=== PATIENT | male | born 1935 | race Caucasian/White ===

== ENCOUNTER 2018-10-26 09:48 | Inpatient (IN) | payer MEDICARE, MEDICAID ==
[2018-10-26 09:55] VITALS: BMI 26.1
[2018-10-26] MEDS ORDERED: Sodium Chloride 0.9% 1,000 ML IV STA ×4 (10:19→15:04)
--- NOTE | 2018-10-26 10:23 | ED PDOC ---
HPI: CCC, URI, Sore Throat Time Seen by Provider: 10/26/18 09:57 Chief Complaint (Nursing): Flu-like Symptoms History Per: Family Onset/Duration Of Symptoms: Days (2) Current Symptoms Are (Timing): Still Present Associated Symptoms: Fever, Cough, Vomiting. denies: Sputum, Diarrhea Severity: Moderate Additional Complaint(s): Brought by EMS. called neighbor after pt had vomited this AM. Has fallen x 2 over past 2-3 days. Neighbor states pt had LOC but not witnessed. Pt has also been coughing, nonproductive over past 2-3 days. Denies chest pain or SOB. Denies diarrhea or bloody stool. Past Medical History Vital Signs: Last Vital Signs Temp 101 F H 10/26/18 09:53 Pulse 97 H 10/26/18 09:53 Resp BP 139/65 10/26/18 09:53 Pulse Ox 96 10/26/18 09:53 Primary Care Provider: Kash Gudino - Medical History PMH: Diabetes - Family History Family History: States: Unknown Family Hx - Home Medications Home Medications: Ambulatory Orders Medication Instructions Recorded Aspirin [Ecotrin] 81 mg PO DAILY 10/26/18 Dutasteride [Avodart] 0.5 mg PO DAILY 10/26/18 Gabapentin [Neurontin] 300 mg PO HS 10/26/18 Losartan [Cozaar] 100 mg PO DAILY 10/26/18 Multivitamin [Multi-Vitamin Daily] 1 tab PO DAILY 10/26/18 Omeprazole 20 mg PO DAILY 10/26/18 Rosuvastatin Calcium [Crestor] 20 mg PO DAILY 10/26/18 Sucralfate [Carafate Tab] 1 gm PO BID 10/26/18 - Allergies Allergies/Adverse Reactions: Allergies Allergy/AdvReac Type Severity Reaction Status Date / Time No Known Allergies Allergy Verified 10/26/18 10:07 Review of Systems ROS Statement: Except As Marked, All Systems Reviewed And Found Negative Constitutional: Positive for: Fever Respiratory: Positive for: Cough Gastrointestinal: Positive for: Vomiting Physical Exam - Reviewed Nursing Documentation Reviewed: Yes Vital Signs Reviewed: Yes - Physical Exam Appears: Positive for: Non-toxic, No Acute Distress Head Exam: Positive for: ATRAUMATIC, NORMAL INSPECTION, NORMOCEPHALIC Skin: Positive for: Normal Color, Warm, DRY Eye Exam: Positive for: EOMI, Normal appearance, PERRL ENT: Positive for: Normal ENT Inspection Neck: Positive for: Normal, Painless ROM Cardiovascular/Chest: Positive for: Regular Rate, Rhythm Respiratory: Positive for: Rhonchi. Negative for: Wheezing, Respiratory Distress Gastrointestinal/Abdominal: Positive for: Soft, Distended. Negative for: Tenderness Back: Positive for: Normal Inspection Extremity: Positive for: Normal ROM Neurological/Psych: Positive for: Awake, Alert, Normal Tone, Oriented (x2). Negative for: Motor/Sensory Deficits - Laboratory Results Result Diagrams: 10/26/18 10:40 10/26/18 10:40 - ECG O2 Sat by Pulse Oximetry: 96 - Progress Re-evaluation Time: 12:49 Condition: Re-examined, Unchanged - Critical Care Total Time (In Min): 60 Documented Critical Care: Time excludes all time spent performint seperately billable procedures Medical Decision Making Medical Decision Making: Meets criteria for severe sepsis but Lactate only 3.9 and pt is normotensive. Code Sepsis is cancelled. Will aggressively hydrate and administer IV antibiotics and repeat Lactate after 3 hours. Likely source is intrabadominal possibly gallbladder or ascending cholangitis with elevated LFTs and elevated Bili. CT and US suggestive of acute cholcystits. Will consult surgery and admit to [facility]. Vanco Zosyn and IV fluids administered. Disposition - Clinical Impression Clinical Impression: Severe sepsis, Cholecystitis, Uncontrolled diabetes mellitus - Patient ED Disposition Is Patient to be Admitted: Yes - Disposition Disposition Time: 10:25 Condition: FAIR Forms: [employer] [facility]) - Pt Status Changed To: Hospital Disposition Of: Inpatient - Admit Certification Admit to Inpatient:: After my assessment, the patient will require hospitalization for at least two midnights. This is because of the severity of symptoms shown, intensity of services needed, and/or the medical risk in this patient being treated as an outpatient. - POA Present On Arrival: None
[2018-10-26] MEDS ORDERED: Insulin Regular 100 units/ml SC STA (10:25)
[2018-10-26 10:49] LABS: BASO # 0.1 K/uL (0.0-0.2); BASO % 0.6 % (0.0-2.0); HEMOGLOBIN 14.4 g/dL (12.0-18.0); LYMPH # 0.2 K/uL (1.0-4.3); LYMPH % 1.7 % (20.0-40.0); MEAN CELL VOLUME 88.2 fl (80.0-94.0); MEAN CORPUSCULAR HEMOGLOBIN 30.4 pg (27.0-31.0); MEAN CORPUSCULAR HGB CONC 34.5 g/dL (33.0-37.0); MEAN PLATELET VOLUME 10.1 fl (7.2-11.7); MONO # 0.1 K/uL (0.0-0.8); MONO % 0.7 % (0.0-10.0); NEUT # 10.8 K/uL (1.8-7.0); PLATELET COUNT 143 K/uL (130-400); RBC 4.74 Mil/uL (4.40-5.90); WHITE BLOOD COUNT 11.1 K/uL (4.8-10.8)
[2018-10-26 10:55] LABS: VENOUS BLOOD GAS BASE EXCESS -2.5 mmol/L (0.0-2.0); VENOUS BLOOD GAS PCO2 30 mmHg (40-60); VENOUS BLOOD GAS PO2 29 mm/Hg (30-55); VENOUS BLOOD PH 7.44 (7.32-7.43)
[2018-10-26 11:10] LABS: URINE BACTERIA RARE (<OCC); URINE BILIRUBIN NEGATIVE (NEGATIVE); URINE BLOOD SMALL (NEGATIVE); URINE CLARITY SLIGHTY-CLOUDY (Clear); URINE COLOR YELLOW (YELLOW); URINE GLUCOSE (UA) >=500 mg/dL (NEGATIVE); URINE LEUKOCYTE ESTERASE NEG Leu/uL (Negative); URINE PROTEIN 30 mg/dL (NEGATIVE)
[2018-10-26 11:13] LABS: ANISOCYTOSIS SLIGHT; BANDS 12 % (0-2); BURR CELLS SLIGHT; LYMPHOCYTE 2 % (20-50); NEUTROPHIL 86 % (42-75); PLATELET ESTIMATE NORMAL (NORMAL); POIKILOCYTOSIS SLIGHT; TOTAL CELLS COUNTED 100
[2018-10-26 11:14] LABS: LARGE PLATELETS PRESENT; OVALOCYTES SLIGHT
[2018-10-26 11:18] LABS: ALB/GLOB RATIO 1.3 (1.0-2.1); ALBUMIN 3.8 g/dL (3.5-5.0); ALT/SGPT 211 U/L (21-72); AST/SGOT 339 U/L (17-59); BLOOD UREA NITROGEN 32 mg/dl (9-20); CALCIUM 8.7 mg/dL (8.4-10.2); GFR NON-AFRICAN AMERICAN 36
[2018-10-26] MEDS ORDERED: Vancomycin 1 g Inj ONE (11:28)
--- NOTE | 2018-10-26 12:02 | CT ---
Date of service: 10/26/2018 PROCEDURE: CT HEAD WITHOUT CONTRAST. HISTORY: r/o bleed COMPARISON: None available. TECHNIQUE: Axial computed tomography images were obtained through the head/brain without intravenous contrast. Radiation dose: Total exam DLP = 1036.42 mGy-cm. This CT exam was performed using one or more of the following dose reduction techniques: Automated exposure control, adjustment of the mA and/or kV according to patient size, and/or use of iterative reconstruction technique. FINDINGS: HEMORRHAGE: No intracranial hemorrhage. BRAIN: Age-appropriate diffuse cerebral atrophy chronic microangiopathy are identified, which are age-related degenerative findings of mild severity. No mass-effect is identified and there is no suspicious extra-axial collection appreciated the posterior fossa contents are unremarkable as well as the midline brain anatomy. Note is made of atherosclerotic calcification of the bilateral cavernous internal carotid artery segments. VENTRICLES: Unremarkable. No hydrocephalus. CALVARIUM: Unremarkable. PARANASAL SINUSES: Unremarkable as visualized. No significant inflammatory changes. MASTOID AIR CELLS: Unremarkable as visualized. No inflammatory changes. OTHER FINDINGS: None. IMPRESSION: Age-appropriate neuro degenerative changes are identified without definite acute intracranial findings by standard CT criteria.
--- NOTE | 2018-10-26 12:31 | CT ---
Date of service: 10/26/2018 PROCEDURE: CT Abdomen and Pelvis without intravenous contrast HISTORY: Abd pain vomiting COMPARISON: Abdomen pelvis CT with contrast 05/30/2009. TECHNIQUE: Helical CT of the abdomen and pelvis was performed without oral or intravenous contrast as per referring physician request. Coronal and sagittal reformats were generated. Radiation dose: Total exam DLP = 621.52 mGy-cm. This CT exam was performed using one or more of the following dose reduction techniques: Automated exposure control, adjustment of the mA and/or kV according to patient size, and/or use of iterative reconstruction technique. FINDINGS: LOWER THORAX: Small hiatal hernia identified. Basilar dependent atelectasis noted. Mild cardiomegaly noted. LIVER: Unremarkable. No gross lesion or ductal dilatation. GALLBLADDER AND BILE DUCTS: Gallbladder is significantly distended without radiodense cholelithiasis however mild mural thickening is questioned and there is definite pericholecystic reaction. Clinically correlate for potential cholecystitis. PANCREAS: Unremarkable. No gross lesion or ductal dilatation. SPLEEN: Unremarkable. ADRENALS: Unremarkable. No mass. KIDNEYS AND URETERS: Lower pole right renal cyst is not significantly changed in size now measuring 4.1 cm greatest dimension compared to 4.0 cm previously. Punctate calcification is seen in its medial wall. Nonspecific streaky bilateral perinephric changes are reiterated, of uncertain significance. VASCULATURE: Minimal nonaneurysmal abdominal aortic calcific atherosclerotic changes are identified. BOWEL: The stomach is distended with retained fluid moderately. No bowel obstruction apparent. Occasional left colonic diverticular appreciate without definite diverticulitis. APPENDIX: Unremarkable. Normal appendix. PERITONEUM: Tiny umbilical hernia contains only fat. No free fluid. No free air. LYMPH NODES: Unremarkable. No enlarged lymph nodes. BLADDER: Stable appearance to the urinary bladder. REPRODUCTIVE: Prostate gland enlargement again evident. BONES: No acute fracture. OTHER FINDINGS: None. IMPRESSION: 1. A distended gallbladder is identified with mild mural thickening and pericholecystic reaction suspicious for cholecystitis. No radiodense cholelithiasis appreciated. Consider follow-up right upper quadrant abdomen ultrasound and or nuclear pattern biliary scan for added characterization of the gallbladder and biliary tree. 2. Nonacute left colonic diverticulosis. 3. Stable right renal cyst, minimally complicated. 4. Other, lesser nonacute findings as discussed above.
--- NOTE | 2018-10-26 12:33 | US ---
Date of service: 10/26/2018 HISTORY: Elevated LFTs COMPARISON: 04/25/2009. Right upper quadrant ultrasound October 26, 2018. CT abdomen and pelvis TECHNIQUE: Sonographic evaluation of the right upper quadrant of the abdomen. FINDINGS: LIVER: Measures 15.2 cm in length. Patent portal and hepatic venous systems. Hepatopedal blood flow. Fatty infiltration manifest ultrasonographically as increased echogenicity of the liver parenchyma. No mass. No intrahepatic bile duct dilatation. GALLBLADDER: Thickened gallbladder wall varies from 7.2 mm 212.2 mm. Debris/tumefactive sludge identified. These are new findings compared to the prior ultrasound study. COMMON BILE DUCT: Measures 2.7 mm. No stones. No dilatation. PANCREAS: Unremarkable as visualized. No mass. No ductal dilatation. RIGHT KIDNEY: Measures 5.1 x 9.8 cm in length. Normal echogenicity. No calculus, mass, or hydronephrosis.Incidental finding(s): Exophytic cyst projects off the posterior lateral aspect of the right kidney measures 3.5 x 3.6 cm. AORTA: No aneurysmal dilatation. IVC: Unremarkable. OTHER FINDINGS: None . IMPRESSION: 1. Distended gallbladder, thickening gallbladder wall. 2. No discrete gallstones identified. 3. No sonographic Smith sign identified. 4. Tumefactive sludge identified. Follow-up of the findings in the gallbladder recommended.
--- NOTE | 2018-10-26 12:44 | RAD ---
Date of service: 10/26/2018 PROCEDURE: CHEST RADIOGRAPH, 1 VIEW HISTORY: Fever COMPARISON: 07/13/2012. FINDINGS: LUNGS: Clear. PLEURA: No pneumothorax or pleural fluid seen. CARDIOVASCULAR: No aortic atherosclerotic calcification present. Normal. OSSEOUS STRUCTURES: No significant abnormalities. VISUALIZED UPPER ABDOMEN: Normal. OTHER FINDINGS: None. IMPRESSION: No active disease. No acute/significant interval changes.
--- NOTE | 2018-10-26 12:48 | CARD ---
APPROVED REPORT Date of service: 10/26/2018 EKG Measurement Heart [id number] <Conclusion> Normal sinus rhythm Possible Left atrial enlargement Borderline ECG
[2018-10-26 13:11] LABS: LIPASE 655 U/L (23-300)
[2018-10-26 14:45] LABS: VENOUS BLOOD GAS BASE EXCESS -2.9 mmol/L (0.0-2.0); VENOUS BLOOD GAS PCO2 38 mmHg (40-60); VENOUS BLOOD GAS PO2 26 mm/Hg (30-55); VENOUS BLOOD PH 7.37 (7.32-7.43)
--- NOTE | 2018-10-26 14:50 | CP.PCM.CON ---
<Indra Sarmiento - Last Filed: 10/26/18 14:51> History of Present Illness - History of Present Illness History of Present Illness: Surgery Consult Note. Dr. Marquez 83yo M with PMHx of HTN, DM here for evaluation of abdominal pain. Pain started 4 days ago and associated with nausea and vomiting x 1 episode this morning. Pain described as sharp and located in the RUQ, does not radiate. He also c/o subjective fevers and chills. He states nothing improves the pain. Also c/o recent fall but unwitnessed. Denies urinary complaints. No CP/SOB. Abd CT with evidence of a distended GB and sludge. Abd US with evidence of GB wall thickening. General surgery consult was obtained. PMHx: HTN, DM PSHx: Deneis Social Hx: Denies Tobacco use, denies ETOH use, Denies illicit drugs Family Hx: non-contributory NKDA Review of Systems - Review of Systems All systems: reviewed and no additional remarkable complaints except - Constitutional Constitutional: Chills, Fever - EENT Eyes: absent: Blurred Vision - Cardiovascular Cardiovascular: absent: Chest Pain, Dyspnea - Respiratory Respiratory: absent: Cough - Gastrointestinal Gastrointestinal: Abdominal Pain, Belching, Nausea, Vomiting - Genitourinary Genitourinary: absent: Change in Urinary Stream, Difficulty Urinating - Musculoskeletal Musculoskeletal: absent: Back Pain Past Patient History - Infectious Disease Hx of Infectious Diseases: None - Past Medical History & Family History Past Medical History?: Yes Past Family History: Reviewed and not pertinent - Past Social History Smoking Status: Never Smoked Alcohol: None Drugs: Denies - CARDIAC Hx Hypertension: Yes - ENDOCRINE/METABOLIC Hx Diabetes Mellitus Type 2: Yes - PSYCHIATRIC Hx Substance Use: No - SURGICAL HISTORY Hx Surgeries: No - ANESTHESIA Hx Anesthesia: No Meds Allergies/Adverse Reactions: Allergies Allergy/AdvReac Type Severity Reaction Status Date / Time No Known Allergies Allergy Verified 10/26/18 10:07 - Medications Medications: Current Medications Sodium Chloride (Sodium Chloride 0.9%) 1,000 mls @ 125 mls/hr IV .Q8H STA Stop: 10/26/18 18:18 Last Admin: 10/26/18 10:47 Dose: 125 mls/hr Physical Exam - Constitutional Appears: Toxic - Head Exam Head Exam: ATRAUMATIC, NORMAL INSPECTION, NORMOCEPHALIC - Eye Exam Eye Exam: EOMI, Normal appearance, Scleral icterus - ENT Exam ENT Exam: Mucous Membranes Dry - Respiratory Exam Respiratory Exam: NORMAL BREATHING PATTERN. absent: Accessory Muscle Use, Respiratory Distress - Cardiovascular Exam Cardiovascular Exam: RRR. absent: JVD - GI/Abdominal Exam GI & Abdominal Exam: absent: Distended, Guarding, Rebound, Rigid Additional comments: Negative Smith's sign. No rebound, no guarding. RUQ tenderness to palpation. - Extremities Exam Extremities exam: Positive for: normal inspection. Negative for: calf tenderness - Neurological Exam Neurological exam: Alert, Oriented x3 - Psychiatric Exam Psychiatric exam: Normal Affect, Normal Mood - Skin Skin Exam: Dry, Warm Results - Vital Signs Recent Vital Signs: Last Vital Signs Temp 100.5 F H 10/26/18 12:38 Pulse 86 10/26/18 14:14 Resp 16 10/26/18 14:14 BP 96/67 L 10/26/18 14:14 Pulse Ox 99 10/26/18 14:14 - Labs Result Diagrams: 10/26/18 10:40 10/26/18 10:40 Labs: Laboratory Results - last 24 hr 10/26/18 10/26/18 10/26/18 10:11 10:28 10:40 WBC 11.1 H RBC 4.74 Hgb 14.4 Hct 41.8 MCV 88.2 MCH 30.4 MCHC 34.5 RDW 14.0 Plt Count 143 MPV 10.1 Neut % (Auto) 97.0 H Lymph % (Auto) 1.7 L [place] % (Auto) 0.7 Eos % (Auto) 0.0 Baso % (Auto) 0.6 Neut # (Auto) 10.8 H Lymph # (Auto) 0.2 L [place] # (Auto) 0.1 Eos # (Auto) 0.0 Baso # (Auto) 0.1 Neutrophils % (Manual) 86 H Band Neutrophils % 12 H* Lymphocytes % (Manual) 2 L Monocytes % (Manual) TEST NOT PERFORMED Platelet Estimate Normal Large Platelets Present Poikilocytosis (manual Slight Anisocytosis (manual) Slight Ovalocytes Slight [place] Cells Slight pO2 29 L VBG pH 7.44 H VBG pCO2 30 L VBG HCO3 21.8 VBG Total CO2 21.3 L VBG O2 Sat (Calc) 63.5 VBG Base Excess -2.5 L VBG Potassium 4.8 Sodium 130.0 L Chloride 96.0 L Glucose 443 H* Lactate 3.9 H FiO2 21.0 Crit Value Called To Azeb richey r.n. Crit Value Called By Camelia Christensent Value Read Back Y Blood Gas Notified Time 1055 Potassium Carbon Dioxide Anion Gap BUN Creatinine Est GFR ( Amer) Est GFR (Non-Af Amer) POC Glucose (mg/dL) 403 H* Random Glucose Calcium Total Bilirubin AST ALT Alkaline Phosphatase Troponin I Total Protein Albumin Globulin Albumin/Globulin Ratio Lipase Venous Blood Potassium 4.8 Urine Color Urine Clarity Urine pH Ur Specific [place] Urine Protein Urine Glucose (UA) Urine Ketones Urine Blood Urine Nitrate Urine Bilirubin Urine Urobilinogen Ur Leukocyte Esterase Urine RBC (Auto) Urine Microscopic WBC Urine Bacteria Influenza Typ A,B (EIA) 10/26/18 10/26/18 10/26/18 10:40 10:45 10:55 WBC RBC Hgb Hct MCV MCH MCHC RDW Plt Count MPV Neut % (Auto) Lymph % (Auto) [place] % (Auto) Eos % (Auto) Baso % (Auto) Neut # (Auto) Lymph # (Auto) [place] # (Auto) Eos # (Auto) Baso # (Auto) Neutrophils % (Manual) Band Neutrophils % Lymphocytes % (Manual) Monocytes % (Manual) Platelet Estimate Large Platelets Poikilocytosis (manual Anisocytosis (manual) Ovalocytes [place] Cells pO2 VBG pH VBG pCO2 VBG HCO3 VBG Total CO2 VBG O2 Sat (Calc) VBG Base Excess VBG Potassium Sodium 132 Chloride 96 L Glucose Lactate FiO2 Crit Value Called To Crit Value Called By Crit Value Read Back Blood Gas Notified Time Potassium 4.7 Carbon Dioxide 22 Anion Gap 19 BUN 32 H Creatinine 1.8 H Est GFR ( Amer) 44 Est GFR (Non-Af Amer) 36 POC Glucose (mg/dL) Random Glucose 411 H* D Calcium 8.7 Total Bilirubin 7.2 H AST 339 H ALT 211 H D Alkaline Phosphatase 226 H Troponin I < 0.0120 Total Protein 6.7 Albumin 3.8 Globulin 2.9 Albumin/Globulin Ratio 1.3 Lipase 655 H Venous Blood Potassium Urine Color Yellow Urine Clarity Slighty-cloudy Urine pH 6.0 Ur Specific [place] 1.017 Urine Protein 30 Urine Glucose (UA) >=500 Urine Ketones Trace Urine Blood Small Urine Nitrate Negative Urine Bilirubin Negative Urine Urobilinogen 1.0 Ur Leukocyte Esterase Neg Urine RBC (Auto) 3 Urine Microscopic WBC 1 Urine Bacteria Rare Influenza Typ A,B (EIA) Negative for flu a/b Assessment & Plan - Assessment and Plan (Free Text) Assessment: 83yo M with cholecystitis, possible cholangitis. - TBili 7.2 - Lactate 3.9 - CT A/P and Abd US noted - Leukocytosis and febrile Plan: - Agree with ICU admission - f/u HIDA as ordered - IV Abx - Consult IR for possible Cholecystostomy tube - NPO - IVF - antiemetics as needed - pain management Further recs as per Dr. Herrera PGY2 surgery <Ruben Campbell - Last Filed: 10/31/18 12:27> Meds - Medications Medications: Current Medications Acetaminophen (Tylenol 325mg Tab) 650 mg PO Q6H PRN PRN Reason: Pain, moderate (4-7) Acetaminophen (Tylenol 325mg Tab) 650 mg PO Q6H PRN PRN Reason: Fever >100.4 F Albuterol Sulfate (Albuterol 0.083% Inhal Mary (2.5 Mg/3 Ml) Ud) 2.5 mg IH RQ2 PRN PRN Reason: Shortness of Breath Dextrose (Dextrose 50% Inj) 0 ml IV STAT PRN; Protocol PRN Reason: Hypoglycemia Protocol Dextrose (Glutose 15) 0 gm PO ONCE PRN; Protocol PRN Reason: Hypoglycemia Protocol Gabapentin (Neurontin) 300 mg PO HS [facility] Last Admin: 10/30/18 21:50 Dose: 300 mg Glucagon (Glucagen Diagnostic Kit) 0 mg IM STAT PRN; Protocol PRN Reason: Hypoglycemia Protocol Guaifenesin/Dextromethorphan (Robitussin Dm) 10 ml PO TID PRN PRN Reason: Cough Stop: 11/02/18 22:47 Last Admin: 10/29/18 13:01 Dose: 10 ml Heparin Sodium (Porcine) (Heparin) 5,000 units SC Q12 [facility]; Protocol Last Admin: 10/26/18 21:11 Dose: Not Given Piperacillin Sod/Tazobactam (Sod 2.25 gm/ Sodium Chloride) 100 mls @ 100 mls/hr IVPB Q6 [facility]OVA; Protocol Last Admin: 10/31/18 09:00 Dose: 100 mls/hr Lactated Ringer's (Lactated Ringer's) 1,000 mls @ 100 mls/hr IV .Q10H [facility] Last Admin: 10/29/18 08:10 Dose: 100 mls/hr Norepinephrine Bitartrate 16 (mg/ Dextrose) 266 mls @ 2.49 mls/hr IV .Q24H ONE Stop: 10/31/18 21:55 Last Admin: 10/31/18 00:38 Dose: 2.49 mls/hr Insulin Human Lispro (Humalog) 0 units SC Q6H [facility]; Protocol Morphine Sulfate (Morphine) 2 mg IVP Q4H PRN PRN Reason: Pain, severe (8-10) Last Admin: 10/31/18 01:00 Dose: 2 mg Ondansetron HCl (Zofran Inj) 4 mg IVP Q6H PRN PRN Reason: Nausea/Vomiting Pantoprazole Sodium (Protonix Inj) 40 mg IVP DAILY [facility] Last Admin: 10/31/18 10:27 Dose: 40 mg Sennosides (Senokot Tab) 8.6 mg PO HS PRN PRN Reason: Constipation Tamsulosin HCl (Flomax) 0.4 mg PO DAILY [facility] Last Admin: 10/31/18 10:27 Dose: 0.4 mg Results - Vital Signs Recent Vital Signs: Last Vital Signs Temp 98.2 F 10/31/18 08:00 Pulse 101 H 10/31/18 11:00 Resp 22 10/31/18 11:00 BP 100/66 10/31/18 11:00 Pulse Ox 100 10/31/18 11:00 - Labs Result Diagrams: 10/31/18 05:31 10/31/18 05:31 Labs: Laboratory Results - last 24 hr 10/30/18 10/30/18 10/31/18 08:29 16:18 00:42 WBC RBC Hgb Hct MCV MCH MCHC RDW Plt Count Sodium Potassium Chloride Carbon Dioxide Anion Gap BUN Creatinine Est GFR ( Amer) Est GFR (Non-Af Amer) POC Glucose (mg/dL) 292 H 403 H* 226 H Random Glucose Calcium Phosphorus Magnesium Total Bilirubin AST ALT Alkaline Phosphatase Total Protein Albumin Globulin Albumin/Globulin Ratio 10/31/18 10/31/18 10/31/18 05:31 05:31 06:17 WBC 15.9 H RBC 4.32 L Hgb 12.7 Hct 38.2 MCV 88.4 MCH 29.3 MCHC 33.2 RDW 14.9 H Plt Count 128 L D Sodium 135 Potassium 3.7 Chloride 102 Carbon Dioxide 24 Anion Gap 13 BUN 34 H Creatinine 1.5 Est GFR ( Amer) 54 Est GFR (Non-Af Amer) 45 POC Glucose (mg/dL) 312 H Random Glucose 246 H Calcium 7.5 L Phosphorus 2.4 L Magnesium 1.9 Total Bilirubin 5.4 H AST 37 ALT 34 Alkaline Phosphatase 208 H D Total Protein 5.0 L Albumin 2.3 L Globulin 2.6 Albumin/Globulin Ratio 0.9 L Assessment & Plan - Assessment and Plan (Free Text) Plan: All medical record entries made by the resident were at my direction. I have reviewed the chart and agree that the record accurately reflects my personal performance of the history, physical exam, and medical decision making.
--- NOTE | 2018-10-26 18:23 | CP.CCUPN ---
CCU Subjective - Physician Review Subjective (Free Text): 10/26/18 18:40 The patient was Seen/interviewed and examined by me at the bedside during ICU round, Medical records reviewed and Management issues were discussed and formulated with the house staff. Events reviewed Mr Angel is a 83 years old male with past medical history of hypertension and diabetes who was transferred to the emergency room with complaint of abdominal pain, also the patient neighbor state that the patient had an episode of u nwitnessed loss of consciousness Abdominal CAT scan shows distended gallbladder with evidence of acute cholecystitis Labs noted for elevated lactate and code sepsis was called Blood culture was sent and empiric antibiotic with IV vancomycin and Zosyn he started Also aggressive IV hydration Patient was also evaluated by surgery in the emergency room, he is to be n.p.o. for OR in the morning Left femoral central line was placed for borderline blood pressure Patient admitted to the ICU for further management of severe sepsis Patient awake comfortable, in no apparent distress Mildly tachypneic, borderline blood pressure, afebrile Adequate saturation of 98-99% CCU Objective - Vital Signs / Intake & Output Vital Signs (Last 4 hours): Vital Signs Temp Pulse Resp BP Pulse Ox 10/26/18 18:00 82 32 H 92/62 L 98 10/26/18 17:00 83 25 H 101/60 98 10/26/18 16:43 98.3 F 88 33 H 118/58 L 99 10/26/18 16:15 88 18 129/74 100 10/26/18 15:45 88 18 129/74 99 10/26/18 15:44 92 H 16 89/67 L 100 10/26/18 15:42 99 H 15 89/67 L 100 10/26/18 14:35 88 100/60 99 Intake and Output (Last 8hrs): Intake & Output 10/26/18 10/26/18 10/26/18 06:59 14:59 22:59 Intake Total 125 Output Total 400 Balance -275 Weight 152 lb 160 lb Intake: IV 125 Output: Urine 400 Urine, Voided 400 - Medications Active Medications: Active Medications Generic Name Dose Route Start Last Admin Trade Name Freq PRN Reason Stop Dose Admin Norepinephrine Bitartrate 4 mg 254 mls @ 9.53 mls/hr 10/26/18 15:30 10/26/18 15:44 / Dextrose IV 9.53 mls/hr .Q24H [facility] Administration Protocol 2.5 MCG/MIN Piperacillin Sod/Tazobactam 100 mls @ 100 mls/hr 10/26/18 22:00 Sod 3.375 gm/ Sodium Chloride IVPB Q6 [facility] Protocol - Patient Studies Lab Studies: Lab Studies 10/26/18 10/26/18 10/26/18 Range/Units 14:04 10:55 10:45 WBC (4.8-10.8) K/uL RBC (4.40-5.90) Mil/uL Hgb (12.0-18.0) g/dL Hct (35.0-51.0) % MCV (80.0-94.0) fl MCH (27.0-31.0) pg MCHC (33.0-37.0) g/dL RDW (11.5-14.5) % Plt Count (130-400) K/uL MPV (7.2-11.7) fl Neut % (Auto) (50.0-75.0) % Lymph % (Auto) (20.0-40.0) % [place] % (Auto) (0.0-10.0) % Eos % (Auto) (0.0-4.0) % Baso % (Auto) (0.0-2.0) % Neut # (Auto) (1.8-7.0) K/uL Lymph # (Auto) (1.0-4.3) K/uL [place] # (Auto) (0.0-0.8) K/uL Eos # (Auto) (0.0-0.7) K/uL Baso # (Auto) (0.0-0.2) K/uL Neutrophils % (Manual) (42-75) % Band Neutrophils % (0-2) % Lymphocytes % (Manual) (20-50) % Monocytes % (Manual) Platelet Estimate (NORMAL) Large Platelets Poikilocytosis (manual Anisocytosis (manual) Ovalocytes [place] Cells pO2 26 L (30-55) mm/Hg VBG pH 7.37 (7.32-7.43) VBG pCO2 38 L (40-60) mmHg VBG HCO3 21.5 mmol/L VBG Total CO2 23.2 (22-28) mmol/L VBG O2 Sat (Calc) 56.9 (40-65) % VBG Base Excess -2.9 L (0.0-2.0) mmol/L VBG Potassium 4.1 (3.6-5.2) mmol/L Sodium 134.0 (132-148) mmol/L Chloride 102.0 (98-107) mmol/L Glucose 345 H (75-110) mg/dL Lactate 3.9 H (0.7-2.1) mmol/L FiO2 21.0 % Crit Value Called To Crit Value Called By Crit Value Read Back Blood Gas Notified Time Potassium (3.6-5.0) MMOL/L Carbon Dioxide (22-30) mmol/L Anion Gap (10-20) BUN (9-20) mg/dl Creatinine (0.8-1.5) mg/dl Est GFR ( Amer) Est GFR (Non-Af Amer) POC Glucose (mg/dL) (65-110) mg/dL Random Glucose (75-110) mg/dL Calcium (8.4-10.2) mg/dL Total Bilirubin (0.2-1.3) mg/dl AST (17-59) U/L ALT (21-72) U/L Alkaline Phosphatase (38-126) U/L Troponin I (0.00-0.120) ng/mL Total Protein (6.3-8.2) G/DL Albumin (3.5-5.0) g/dL Globulin (2.2-3.9) gm/dL Albumin/Globulin Ratio (1.0-2.1) Lipase (23-300) U/L Venous Blood Potassium 4.1 (3.6-5.2) mmol/L Urine Color Yellow (YELLOW) Urine Clarity Slighty-cloudy (Clear) Urine pH 6.0 (5.0-8.0) Ur Specific [place] 1.017 (1.003-1.030) Urine Protein 30 (NEGATIVE) mg/dL Urine Glucose (UA) >=500 (NEGATIVE) mg/dL Urine Ketones Trace (NEGATIVE) mg/dL Urine Blood Small (NEGATIVE) Urine Nitrate Negative (NEGATIVE) Urine Bilirubin Negative (NEGATIVE) Urine Urobilinogen 1.0 (0.2-1.0) mg/dL Ur Leukocyte Esterase Neg (Negative) Tuan/uL Urine RBC (Auto) 3 (0-3) /hpf Urine Microscopic WBC 1 (0-5) /hpf Urine Bacteria Rare (<OCC) Influenza Typ A,B (EIA) Negative for flu a/b (NEGATIVE) 10/26/18 10/26/18 10/26/18 Range/Units 10:40 10:40 10:28 WBC 11.1 H (4.8-10.8) K/uL RBC 4.74 (4.40-5.90) Mil/uL Hgb 14.4 (12.0-18.0) g/dL Hct 41.8 (35.0-51.0) % MCV 88.2 (80.0-94.0) fl MCH 30.4 (27.0-31.0) pg MCHC 34.5 (33.0-37.0) g/dL RDW 14.0 (11.5-14.5) % Plt Count 143 (130-400) K/uL MPV 10.1 (7.2-11.7) fl Neut % (Auto) 97.0 H (50.0-75.0) % Lymph % (Auto) 1.7 L (20.0-40.0) % [place] % (Auto) 0.7 (0.0-10.0) % Eos % (Auto) 0.0 (0.0-4.0) % Baso % (Auto) 0.6 (0.0-2.0) % Neut # (Auto) 10.8 H (1.8-7.0) K/uL Lymph # (Auto) 0.2 L (1.0-4.3) K/uL [place] # (Auto) 0.1 (0.0-0.8) K/uL Eos # (Auto) 0.0 (0.0-0.7) K/uL Baso # (Auto) 0.1 (0.0-0.2) K/uL Neutrophils % (Manual) 86 H (42-75) % Band Neutrophils % 12 H* (0-2) % Lymphocytes % (Manual) 2 L (20-50) % Monocytes % (Manual) TEST NOT PERFORMED Platelet Estimate Normal (NORMAL) Large Platelets Present Poikilocytosis (manual Slight Anisocytosis (manual) Slight Ovalocytes Slight [place] Cells Slight pO2 29 L (30-55) mm/Hg VBG pH 7.44 H (7.32-7.43) VBG pCO2 30 L (40-60) mmHg VBG HCO3 21.8 mmol/L VBG Total CO2 21.3 L (22-28) mmol/L VBG O2 Sat (Calc) 63.5 (40-65) % VBG Base Excess -2.5 L (0.0-2.0) mmol/L VBG Potassium 4.8 (3.6-5.2) mmol/L Sodium 132 130.0 L (132-148) mmol/L Chloride 96 L 96.0 L (98-107) mmol/L Glucose 443 H* (75-110) mg/dL Lactate 3.9 H (0.7-2.1) mmol/L FiO2 21.0 % Crit Value Called To Azeb richey r.n. Crit Value Called By Camelia Sung Value Read Back Y Blood Gas Notified Time 1055 Potassium 4.7 (3.6-5.0) MMOL/L Carbon Dioxide 22 (22-30) mmol/L Anion Gap 19 (10-20) BUN 32 H (9-20) mg/dl Creatinine 1.8 H (0.8-1.5) mg/dl Est GFR ( Amer) 44 Est GFR (Non-Af Amer) 36 POC Glucose (mg/dL) (65-110) mg/dL Random Glucose 411 H* D (75-110) mg/dL Calcium 8.7 (8.4-10.2) mg/dL Total Bilirubin 7.2 H (0.2-1.3) mg/dl AST 339 H (17-59) U/L ALT 211 H D (21-72) U/L Alkaline Phosphatase 226 H (38-126) U/L Troponin I < 0.0120 (0.00-0.120) ng/mL Total Protein 6.7 (6.3-8.2) G/DL Albumin 3.8 (3.5-5.0) g/dL Globulin 2.9 (2.2-3.9) gm/dL Albumin/Globulin Ratio 1.3 (1.0-2.1) Lipase 655 H (23-300) U/L Venous Blood Potassium 4.8 (3.6-5.2) mmol/L Urine Color (YELLOW) Urine Clarity (Clear) Urine pH (5.0-8.0) Ur Specific [place] (1.003-1.030) Urine Protein (NEGATIVE) mg/dL Urine Glucose (UA) (NEGATIVE) mg/dL Urine Ketones (NEGATIVE) mg/dL Urine Blood (NEGATIVE) Urine Nitrate (NEGATIVE) Urine Bilirubin (NEGATIVE) Urine Urobilinogen (0.2-1.0) mg/dL Ur Leukocyte Esterase (Negative) Tuan/uL Urine RBC (Auto) (0-3) /hpf Urine Microscopic WBC (0-5) /hpf Urine Bacteria (<OCC) Influenza Typ A,B (EIA) (NEGATIVE) 10/26/18 Range/Units 10:11 WBC (4.8-10.8) K/uL RBC (4.40-5.90) Mil/uL Hgb (12.0-18.0) g/dL Hct (35.0-51.0) % MCV (80.0-94.0) fl MCH (27.0-31.0) pg MCHC (33.0-37.0) g/dL RDW (11.5-14.5) % Plt Count (130-400) K/uL MPV (7.2-11.7) fl Neut % (Auto) (50.0-75.0) % Lymph % (Auto) (20.0-40.0) % [place] % (Auto) (0.0-10.0) % Eos % (Auto) (0.0-4.0) % Baso % (Auto) (0.0-2.0) % Neut # (Auto) (1.8-7.0) K/uL Lymph # (Auto) (1.0-4.3) K/uL [place] # (Auto) (0.0-0.8) K/uL Eos # (Auto) (0.0-0.7) K/uL Baso # (Auto) (0.0-0.2) K/uL Neutrophils % (Manual) (42-75) % Band Neutrophils % (0-2) % Lymphocytes % (Manual) (20-50) % Monocytes % (Manual) Platelet Estimate (NORMAL) Large Platelets Poikilocytosis (manual Anisocytosis (manual) Ovalocytes [place] Cells pO2 (30-55) mm/Hg VBG pH (7.32-7.43) VBG pCO2 (40-60) mmHg VBG HCO3 mmol/L VBG Total CO2 (22-28) mmol/L VBG O2 Sat (Calc) (40-65) % VBG Base Excess (0.0-2.0) mmol/L VBG Potassium (3.6-5.2) mmol/L Sodium (132-148) mmol/L Chloride (98-107) mmol/L Glucose (75-110) mg/dL Lactate (0.7-2.1) mmol/L FiO2 % Crit Value Called To Crit Value Called By Crit Value Read Back Blood Gas Notified Time Potassium (3.6-5.0) MMOL/L Carbon Dioxide (22-30) mmol/L Anion Gap (10-20) BUN (9-20) mg/dl Creatinine (0.8-1.5) mg/dl Est GFR ( Amer) Est GFR (Non-Af Amer) POC Glucose (mg/dL) 403 H* (65-110) mg/dL Random Glucose (75-110) mg/dL Calcium (8.4-10.2) mg/dL Total Bilirubin (0.2-1.3) mg/dl AST (17-59) U/L ALT (21-72) U/L Alkaline Phosphatase (38-126) U/L Troponin I (0.00-0.120) ng/mL Total Protein (6.3-8.2) G/DL Albumin (3.5-5.0) g/dL Globulin (2.2-3.9) gm/dL Albumin/Globulin Ratio (1.0-2.1) Lipase (23-300) U/L Venous Blood Potassium (3.6-5.2) mmol/L Urine Color (YELLOW) Urine Clarity (Clear) Urine pH (5.0-8.0) Ur Specific [place] (1.003-1.030) Urine Protein (NEGATIVE) mg/dL Urine Glucose (UA) (NEGATIVE) mg/dL Urine Ketones (NEGATIVE) mg/dL Urine Blood (NEGATIVE) Urine Nitrate (NEGATIVE) Urine Bilirubin (NEGATIVE) Urine Urobilinogen (0.2-1.0) mg/dL Ur Leukocyte Esterase (Negative) Tuan/uL Urine RBC (Auto) (0-3) /hpf Urine Microscopic WBC (0-5) /hpf Urine Bacteria (<OCC) Influenza Typ A,B (EIA) (NEGATIVE) Laboratory Results - last 24 hr 10/26/18 10/26/18 10/26/18 10:11 10:28 10:40 WBC 11.1 H RBC 4.74 Hgb 14.4 Hct 41.8 MCV 88.2 MCH 30.4 MCHC 34.5 RDW 14.0 Plt Count 143 MPV 10.1 Neut % (Auto) 97.0 H Lymph % (Auto) 1.7 L [place] % (Auto) 0.7 Eos % (Auto) 0.0 Baso % (Auto) 0.6 Neut # (Auto) 10.8 H Lymph # (Auto) 0.2 L [place] # (Auto) 0.1 Eos # (Auto) 0.0 Baso # (Auto) 0.1 Neutrophils % (Manual) 86 H Band Neutrophils % 12 H* Lymphocytes % (Manual) 2 L Monocytes % (Manual) TEST NOT PERFORMED Platelet Estimate Normal Large Platelets Present Poikilocytosis (manual Slight Anisocytosis (manual) Slight Ovalocytes Slight [place] Cells Slight pO2 29 L VBG pH 7.44 H VBG pCO2 30 L VBG HCO3 21.8 VBG Total CO2 21.3 L VBG O2 Sat (Calc) 63.5 VBG Base Excess -2.5 L VBG Potassium 4.8 Sodium 130.0 L Chloride 96.0 L Glucose 443 H* Lactate 3.9 H FiO2 21.0 Crit Value Called To Azeb richey r.n. Crit Value Called By Camelia Sung Value Read Back Y Blood Gas Notified Time 1055 Potassium Carbon Dioxide Anion Gap BUN Creatinine Est GFR ( Amer) Est GFR (Non-Af Amer) POC Glucose (mg/dL) 403 H* Random Glucose Calcium Total Bilirubin AST ALT Alkaline Phosphatase Troponin I Total Protein Albumin Globulin Albumin/Globulin Ratio Lipase Venous Blood Potassium 4.8 Urine Color Urine Clarity Urine pH Ur Specific [place] Urine Protein Urine Glucose (UA) Urine Ketones Urine Blood Urine Nitrate Urine Bilirubin Urine Urobilinogen Ur Leukocyte Esterase Urine RBC (Auto) Urine Microscopic WBC Urine Bacteria Influenza Typ A,B (EIA) 10/26/18 10/26/18 10/26/18 10:40 10:45 10:55 WBC RBC Hgb Hct MCV MCH MCHC RDW Plt Count MPV Neut % (Auto) Lymph % (Auto) [place] % (Auto) Eos % (Auto) Baso % (Auto) Neut # (Auto) Lymph # (Auto) [place] # (Auto) Eos # (Auto) Baso # (Auto) Neutrophils % (Manual) Band Neutrophils % Lymphocytes % (Manual) Monocytes % (Manual) Platelet Estimate Large Platelets Poikilocytosis (manual Anisocytosis (manual) Ovalocytes [place] Cells pO2 VBG pH VBG pCO2 VBG HCO3 VBG Total CO2 VBG O2 Sat (Calc) VBG Base Excess VBG Potassium Sodium 132 Chloride 96 L Glucose Lactate FiO2 Crit Value Called To Crit Value Called By Crit Value Read Back Blood Gas Notified Time Potassium 4.7 Carbon Dioxide 22 Anion Gap 19 BUN 32 H Creatinine 1.8 H Est GFR ( Amer) 44 Est GFR (Non-Af Amer) 36 POC Glucose (mg/dL) Random Glucose 411 H* D Calcium 8.7 Total Bilirubin 7.2 H AST 339 H ALT 211 H D Alkaline Phosphatase 226 H Troponin I < 0.0120 Total Protein 6.7 Albumin 3.8 Globulin 2.9 Albumin/Globulin Ratio 1.3 Lipase 655 H Venous Blood Potassium Urine Color Yellow Urine Clarity Slighty-cloudy Urine pH 6.0 Ur Specific [place] 1.017 Urine Protein 30 Urine Glucose (UA) >=500 Urine Ketones Trace Urine Blood Small Urine Nitrate Negative Urine Bilirubin Negative Urine Urobilinogen 1.0 Ur Leukocyte Esterase Neg Urine RBC (Auto) 3 Urine Microscopic WBC 1 Urine Bacteria Rare Influenza Typ A,B (EIA) Negative for flu a/b 10/26/18 14:04 WBC RBC Hgb Hct MCV MCH MCHC RDW Plt Count MPV Neut % (Auto) Lymph % (Auto) [place] % (Auto) Eos % (Auto) Baso % (Auto) Neut # (Auto) Lymph # (Auto) [place] # (Auto) Eos # (Auto) Baso # (Auto) Neutrophils % (Manual) Band Neutrophils % Lymphocytes % (Manual) Monocytes % (Manual) Platelet Estimate Large Platelets Poikilocytosis (manual Anisocytosis (manual) Ovalocytes [place] Cells pO2 26 L VBG pH 7.37 VBG pCO2 38 L VBG HCO3 21.5 VBG Total CO2 23.2 VBG O2 Sat (Calc) 56.9 VBG Base Excess -2.9 L VBG Potassium 4.1 Sodium 134.0 Chloride 102.0 Glucose 345 H Lactate 3.9 H FiO2 21.0 Crit Value Called To Crit Value Called By Crit Value Read Back Blood Gas Notified Time Potassium Carbon Dioxide Anion Gap BUN Creatinine Est GFR ( Amer) Est GFR (Non-Af Amer) POC Glucose (mg/dL) Random Glucose Calcium Total Bilirubin AST ALT Alkaline Phosphatase Troponin I Total Protein Albumin Globulin Albumin/Globulin Ratio Lipase Venous Blood Potassium 4.1 Urine Color Urine Clarity Urine pH Ur Specific [place] Urine Protein Urine Glucose (UA) Urine Ketones Urine Blood Urine Nitrate Urine Bilirubin Urine Urobilinogen Ur Leukocyte Esterase Urine RBC (Auto) Urine Microscopic WBC Urine Bacteria Influenza Typ A,B (EIA) Radiology Impressions: Radiology Impressions Abdomen/Pelvis CT 10/26/18 10:16 IMPRESSION: 1. A distended gallbladder is identified with mild mural thickening and pericholecystic reaction suspicious for cholecystitis. No radiodense cholelithiasis appreciated. Consider follow-up right upper quadrant abdomen ultrasound and or nuclear pattern biliary scan for added characterization of the gallbladder and biliary tree. 2. Nonacute left colonic diverticulosis. 3. Stable right renal cyst, minimally complicated. 4. Other, lesser nonacute findings as discussed above. Head CT 10/26/18 10:17 IMPRESSION: Age-appropriate neuro degenerative changes are identified without definite acute intracranial findings by standard CT criteria. Chest X-Ray 10/26/18 10:19 IMPRESSION: No active disease. No acute/significant interval changes. Abdomen Ultrasound 10/26/18 11:25 IMPRESSION: 1. Distended gallbladder, thickening gallbladder wall. 2. No discrete gallstones identified. 3. No sonographic Smith sign identified. 4. Tumefactive sludge identified. Follow-up of the findings in the gallbladder recommended. EKG/Cardiology Studies: Cardiology / EKG Studies 10/26/18 10:17 ELECTROCARDIOGRAM Stat Comment: Mode Of Transportation: Reason For Exam: Sespsis Fingerstick Blood Sugar Results: 166 Critical Care Progress Note - Extremities/Vascular Does the Patient have a Central Venous Catheter?: No Does the Patient need a Central Venous Catheter?: No Does the Patient have a Contreras Catheter?: No Does the Patient need a Contreras Catheter?: No - Nutrition Nutrition: Nutrition Category Date Time Status NPO Diet [DIET] Diets 10/27/18 Breakfast Active Assessment/Plan (1) Cholecystitis Current Visit: Yes Status: Acute Priority: High (2) Severe sepsis Current Visit: Yes Status: Acute Priority: High (3) Uncontrolled diabetes mellitus Current Visit: Yes Status: Acute Priority: High - Assessment and Plan (Free Text) Assessment: Admit to the ICU for hemodynamic monitoring, aggressive IV hydration Rosa culture sent in the emergency room Empiric antibiotic with IV vancomycin and Zosyn Supplemental oxygen N.p.o. for or in the morning Encourage incentive spirometry GI and DVT prophylaxis
[2018-10-26] MEDS: Sodium Chloride 0.9% 1,000 ML IV SCH (19:00)
[2018-10-26] MEDS ORDERED: Piperacillin/Tazobact 3.375 GM in Sodium Chloride 0.9% 100 ML IVPB SCH (22:00)
[2018-10-27] MEDS: Sodium Chloride 0.9% 1,000 ML IV SCH (03:00)
[2018-10-27] MEDS ORDERED: Albuterol 0.083% Inhal Sol (2.5 mg/3 mL) UD INH STA (04:36)
[2018-10-27 05:02] LABS: ABG ALLEN TEST YES; ARTERIAL BLOOD GAS HCO3 18.2 mmol/L (21-28); ARTERIAL BLOOD GAS HEMOGLOBIN 13.3 g/dL (11.7-17.4); ARTERIAL BLOOD GAS O2 CONTENT 17.8 ML/dL (15-23); ARTERIAL BLOOD GAS PCO2 25 mm/Hg (35-45); ARTERIAL BLOOD GAS PH 7.38 (7.35-7.45); ARTERIAL BLOOD GAS PO2 80 mm/Hg (80-100); ARTERIAL BLOOD GAS TCO2 15.6 mmol/L (22-28)
[2018-10-27 05:49] LABS: HEMOGLOBIN 12.9 g/dL (12.0-18.0); MEAN CELL VOLUME 89.2 fl (80.0-94.0); MEAN CORPUSCULAR HEMOGLOBIN 29.8 pg (27.0-31.0); MEAN CORPUSCULAR HGB CONC 33.4 g/dL (33.0-37.0); RBC 4.34 Mil/uL (4.40-5.90); RED CELL DISTRIBUTION WIDTH 14.7 % (11.5-14.5); WHITE BLOOD COUNT 14.9 K/uL (4.8-10.8)
[2018-10-27 06:00] LABS: CALCIUM 7.8 mg/dL (8.4-10.2)
[2018-10-27] MEDS ORDERED: Sodium Bicarbonate 7.5% (0.9 MEQ/ML) 50ML INJ IV ONE (06:09)
--- NOTE | 2018-10-27 06:38 | CP.PCM.HP ---
<Trina Hood - Last Filed: 10/27/18 07:27> History of Present Illness - History of Present Illness History of Present Illness: This is 83 y/o M with PMH of HTN, DM-II and urinary retention admitted to [facility] for evaluation and treatment of sepsis/Cholecystitis. Patient was brought in to the ER for 4 days hx of right abdominal pain. Pain is constant 8/10, sharp, radiating to back, associated with subjective fever, nausea and NBNB vomiting x1. Denies recent travel or sick contact. Patient reports mild dizziness, but denies any SOB or chest pain, dysuria. Abd CT with evidence of a distended GB and sludge. Abd US with evidence of GB wall thickening. General surgery consult was obtained. PMH: DM-II, HTN, Urinary retention PSH: Denies Allg: NKDA SH: Denies alcohol, smoking or drug use FH: Denies ROS: As per HPI Present on Admission - Present on Admission Any Indicators Present on Admission: No Review of Systems - Constitutional Constitutional: Fever. absent: Lethargy - EENT Eyes: absent: Blurred Vision Ears: Dizziness Nose/Mouth/Throat: absent: Nasal Congestion - Cardiovascular Cardiovascular: absent: Chest Pain - Respiratory Respiratory: Cough. absent: Dyspnea, Hemoptysis - Gastrointestinal Gastrointestinal: Abdominal Pain - Genitourinary Genitourinary: absent: Dysuria - Neurological Neurological: Dizziness. absent: Sensory Deficit, Syncope, Tingling, Tremor, Vertigo, Weakness, Other Visual Disturbances - Psychiatric Psychiatric: absent: Anxiety, Depression - Endocrine Endocrine: absent: Change in Body Appearance - Hematologic/Lymphatic Hematologic: absent: Easy Bleeding Past Patient History - Infectious Disease Hx of Infectious Diseases: None - Past Medical History & Family History Past Medical History?: Yes - Past Social History Smoking Status: Never Smoked - CARDIAC Hx Hypertension: Yes - ENDOCRINE/METABOLIC Hx Endocrine Disorders: Yes - MUSCULOSKELETAL/RHEUMATOLOGICAL Hx Falls: Yes - PSYCHIATRIC Hx Substance Use: No - SURGICAL HISTORY Hx Surgeries: No - ANESTHESIA Hx Anesthesia: No Meds Allergies/Adverse Reactions: Allergies Allergy/AdvReac Type Severity Reaction Status Date / Time No Known Allergies Allergy Verified 10/26/18 10:07 Physical Exam - Constitutional Appears: No Acute Distress - Head Exam Head Exam: NORMAL INSPECTION - Eye Exam Eye Exam: EOMI, Normal appearance Pupil Exam: NORMAL ACCOMODATION - ENT Exam ENT Exam: Mucous Membranes Moist - Neck Exam Neck exam: Positive for: Normal Inspection - Respiratory Exam Respiratory Exam: Clear to Auscultation Bilateral, NORMAL BREATHING PATTERN - Cardiovascular Exam Cardiovascular Exam: REGULAR RHYTHM, +S1, +S2 - GI/Abdominal Exam GI & Abdominal Exam: Distended, Guarding, Tenderness (RUQ). absent: Rebound - Rectal Exam Rectal Exam: Deferred - Extremities Exam Extremities exam: Positive for: normal inspection - Back Exam Back exam: NORMAL INSPECTION - Neurological Exam Neurological exam: Alert, CN II-XII Intact, Oriented x3 - Psychiatric Exam Psychiatric exam: Normal Affect - Skin Skin Exam: Dry, Normal Color Results - Vital Signs Recent Vital Signs: Last Vital Signs Temp 99.3 F 10/27/18 04:00 Pulse 106 H 10/27/18 04:56 Resp 36 H 10/27/18 04:00 BP 111/66 10/27/18 04:00 Pulse Ox 95 10/27/18 04:00 - Labs Result Diagrams: 10/27/18 05:40 10/27/18 05:40 Labs: Laboratory Results - last 24 hr 10/26/18 10/26/18 10/26/18 10:11 10:28 10:40 WBC 11.1 H RBC 4.74 Hgb 14.4 Hct 41.8 MCV 88.2 MCH 30.4 MCHC 34.5 RDW 14.0 Plt Count 143 MPV 10.1 Neut % (Auto) 97.0 H Lymph % (Auto) 1.7 L Knott % (Auto) 0.7 Eos % (Auto) 0.0 Baso % (Auto) 0.6 Neut # (Auto) 10.8 H Lymph # (Auto) 0.2 L Knott # (Auto) 0.1 Eos # (Auto) 0.0 Baso # (Auto) 0.1 Neutrophils % (Manual) 86 H Band Neutrophils % 12 H* Lymphocytes % (Manual) 2 L Monocytes % (Manual) TEST NOT PERFORMED Platelet Estimate Normal Large Platelets Present Poikilocytosis (manual Slight Anisocytosis (manual) Slight Ovalocytes Slight Nik[place]j Cells Slight pCO2 pO2 29 L HCO3 ABG pH ABG Total CO2 ABG O2 Saturation ABG O2 Content ABG Base Excess ABG Hemoglobin ABG Carboxyhemoglobin POC ABG HHb (Measured) ABG Methemoglobin ABG O2 Capacity Lopez Test VBG pH 7.44 H VBG pCO2 30 L VBG HCO3 21.8 VBG Total CO2 21.3 L VBG O2 Sat (Calc) 63.5 VBG Base Excess -2.5 L VBG Potassium 4.8 A-a O2 Difference Hgb O2 Saturation Sodium 130.0 L Chloride 96.0 L Glucose 443 H* Lactate 3.9 H FiO2 21.0 Crit Value Called To Azeb richey r.n. Crit Value Called By Camelia Crit Value Read Back Y Blood Gas Notified Time 1055 Potassium Carbon Dioxide Anion Gap BUN Creatinine Est GFR ( Amer) Est GFR (Non-Af Amer) POC Glucose (mg/dL) 403 H* Random Glucose Calcium Total Bilirubin AST ALT Alkaline Phosphatase Troponin I Total Protein Albumin Globulin Albumin/Globulin Ratio Lipase Venous Blood Potassium 4.8 Urine Color Urine Clarity Urine pH Ur Specific [place] Urine Protein Urine Glucose (UA) Urine Ketones Urine Blood Urine Nitrate Urine Bilirubin Urine Urobilinogen Ur Leukocyte Esterase Urine RBC (Auto) Urine Microscopic WBC Urine Bacteria Influenza Typ A,B (EIA) 10/26/18 10/26/18 10/26/18 10:40 10:45 10:55 WBC RBC Hgb Hct MCV MCH MCHC RDW Plt Count MPV Neut % (Auto) Lymph % (Auto) Knott % (Auto) Eos % (Auto) Baso % (Auto) Neut # (Auto) Lymph # (Auto) Knott # (Auto) Eos # (Auto) Baso # (Auto) Neutrophils % (Manual) Band Neutrophils % Lymphocytes % (Manual) Monocytes % (Manual) Platelet Estimate Large Platelets Poikilocytosis (manual Anisocytosis (manual) Ovalocytes Nikunj Cells pCO2 pO2 HCO3 ABG pH ABG Total CO2 ABG O2 Saturation ABG O2 Content ABG Base Excess ABG Hemoglobin ABG Carboxyhemoglobin POC ABG HHb (Measured) ABG Methemoglobin ABG O2 Capacity Lopez Test VBG pH VBG pCO2 VBG HCO3 VBG Total CO2 VBG O2 Sat (Calc) VBG Base Excess VBG Potassium A-a O2 Difference Hgb O2 Saturation Sodium 132 Chloride 96 L Glucose Lactate FiO2 Crit Value Called To Crit Value Called By Crit Value Read Back Blood Gas Notified Time Potassium 4.7 Carbon Dioxide 22 Anion Gap 19 BUN 32 H Creatinine 1.8 H Est GFR ( Amer) 44 Est GFR (Non-Af Amer) 36 POC Glucose (mg/dL) Random Glucose 411 H* D Calcium 8.7 Total Bilirubin 7.2 H AST 339 H ALT 211 H D Alkaline Phosphatase 226 H Troponin I < 0.0120 Total Protein 6.7 Albumin 3.8 Globulin 2.9 Albumin/Globulin Ratio 1.3 Lipase 655 H Venous Blood Potassium Urine Color Yellow Urine Clarity Slighty-cloudy Urine pH 6.0 Ur Specific [place] 1.017 Urine Protein 30 Urine Glucose (UA) >=500 Urine Ketones Trace Urine Blood Small Urine Nitrate Negative Urine Bilirubin Negative Urine Urobilinogen 1.0 Ur Leukocyte Esterase Neg Urine RBC (Auto) 3 Urine Microscopic WBC 1 Urine Bacteria Rare Influenza Typ A,B (EIA) Negative for flu a/b 10/26/18 10/26/18 10/26/18 14:04 16:47 20:36 WBC RBC Hgb Hct MCV MCH MCHC RDW Plt Count MPV Neut % (Auto) Lymph % (Auto) Knott % (Auto) Eos % (Auto) Baso % (Auto) Neut # (Auto) Lymph # (Auto) Knott # (Auto) Eos # (Auto) Baso # (Auto) Neutrophils % (Manual) Band Neutrophils % Lymphocytes % (Manual) Monocytes % (Manual) Platelet Estimate Large Platelets Poikilocytosis (manual Anisocytosis (manual) Ovalocytes Se[place] Cells pCO2 pO2 26 L HCO3 ABG pH ABG Total CO2 ABG O2 Saturation ABG O2 Content ABG Base Excess ABG Hemoglobin ABG Carboxyhemoglobin POC ABG HHb (Measured) ABG Methemoglobin ABG O2 Capacity Lopez Test VBG pH 7.37 VBG pCO2 38 L VBG HCO3 21.5 VBG Total CO2 23.2 VBG O2 Sat (Calc) 56.9 VBG Base Excess -2.9 L VBG Potassium 4.1 A-a O2 Difference Hgb O2 Saturation Sodium 134.0 Chloride 102.0 Glucose 345 H Lactate 3.9 H FiO2 21.0 Crit Value Called To Crit Value Called By Crit Value Read Back Blood Gas Notified Time Potassium Carbon Dioxide Anion Gap BUN Creatinine Est GFR ( Amer) Est GFR (Non-Af Amer) POC Glucose (mg/dL) 166 H 277 H Random Glucose Calcium Total Bilirubin AST ALT Alkaline Phosphatase Troponin I Total Protein Albumin Globulin Albumin/Globulin Ratio Lipase Venous Blood Potassium 4.1 Urine Color Urine Clarity Urine pH Ur Specific [place] Urine Protein Urine Glucose (UA) Urine Ketones Urine Blood Urine Nitrate Urine Bilirubin Urine Urobilinogen Ur Leukocyte Esterase Urine RBC (Auto) Urine Microscopic WBC Urine Bacteria Influenza Typ A,B (EIA) 10/27/18 10/27/18 10/27/18 04:57 05:15 05:19 WBC RBC Hgb Hct MCV MCH MCHC RDW Plt Count MPV Neut % (Auto) Lymph % (Auto) Knott % (Auto) Eos % (Auto) Baso % (Auto) Neut # (Auto) Lymph # (Auto) Knott # (Auto) Eos # (Auto) Baso # (Auto) Neutrophils % (Manual) Band Neutrophils % Lymphocytes % (Manual) Monocytes % (Manual) Platelet Estimate Large Platelets Poikilocytosis (manual Anisocytosis (manual) Ovalocytes Nikunj Cells pCO2 25 L pO2 80 HCO3 18.2 L ABG pH 7.38 ABG Total CO2 15.6 L ABG O2 Saturation 99.0 H ABG O2 Content 17.8 ABG Base Excess -8.6 L ABG Hemoglobin 13.3 ABG Carboxyhemoglobin 2.6 H POC ABG HHb (Measured) 1.0 ABG Methemoglobin 1.4 ABG O2 Capacity 18.0 Lopez Test Yes VBG pH VBG pCO2 VBG HCO3 VBG Total CO2 VBG O2 Sat (Calc) VBG Base Excess VBG Potassium A-a O2 Difference 117.0 Hgb O2 Saturation 95.0 Sodium Chloride Glucose Lactate FiO2 32.0 Crit Value Called To Crit Value Called By Crit Value Read Back Blood Gas Notified Time Potassium Carbon Dioxide Anion Gap BUN Creatinine Est GFR ( Amer) Est GFR (Non-Af Amer) POC Glucose (mg/dL) 366 H 227 H Random Glucose Calcium Total Bilirubin AST ALT Alkaline Phosphatase Troponin I Total Protein Albumin Globulin Albumin/Globulin Ratio Lipase Venous Blood Potassium Urine Color Urine Clarity Urine pH Ur Specific [place] Urine Protein Urine Glucose (UA) Urine Ketones Urine Blood Urine Nitrate Urine Bilirubin Urine Urobilinogen Ur Leukocyte Esterase Urine RBC (Auto) Urine Microscopic WBC Urine Bacteria Influenza Typ A,B (EIA) 10/27/18 10/27/18 05:40 05:40 WBC 14.9 H RBC 4.34 L Hgb 12.9 Hct 38.7 MCV 89.2 MCH 29.8 MCHC 33.4 RDW 14.7 H Plt Count 106 L D MPV Neut % (Auto) Lymph % (Auto) Knott % (Auto) Eos % (Auto) Baso % (Auto) Neut # (Auto) Lymph # (Auto) Knott # (Auto) Eos # (Auto) Baso # (Auto) Neutrophils % (Manual) Band Neutrophils % Lymphocytes % (Manual) Monocytes % (Manual) Platelet Estimate Large Platelets Poikilocytosis (manual Anisocytosis (manual) Ovalocytes Nikunj Cells pCO2 pO2 HCO3 ABG pH ABG Total CO2 ABG O2 Saturation ABG O2 Content ABG Base Excess ABG Hemoglobin ABG Carboxyhemoglobin POC ABG HHb (Measured) ABG Methemoglobin ABG O2 Capacity Lopez Test VBG pH VBG pCO2 VBG HCO3 VBG Total CO2 VBG O2 Sat (Calc) VBG Base Excess VBG Potassium A-a O2 Difference Hgb O2 Saturation Sodium 139 Chloride 107 Glucose Lactate FiO2 Crit Value Called To Crit Value Called By Crit Value Read Back Blood Gas Notified Time Potassium 4.1 Carbon Dioxide 18 L Anion Gap 18 BUN 27 H Creatinine 1.8 H Est GFR ( Amer) 44 Est GFR (Non-Af Amer) 36 POC Glucose (mg/dL) Random Glucose 269 H Calcium 7.8 L Total Bilirubin AST ALT Alkaline Phosphatase Troponin I Total Protein Albumin Globulin Albumin/Globulin Ratio Lipase Venous Blood Potassium Urine Color Urine Clarity Urine pH Ur Specific [place] Urine Protein Urine Glucose (UA) Urine Ketones Urine Blood Urine Nitrate Urine Bilirubin Urine Urobilinogen Ur Leukocyte Esterase Urine RBC (Auto) Urine Microscopic WBC Urine Bacteria Influenza Typ A,B (EIA) Assessment & Plan - Assessment and Plan (Free Text) Assessment: A/P: 83 y/o M with PMH of HTN, DM-II and urinary retention admitted to [facility] for evaluation and treatment of sepsis/Cholecystitis. Sepsis due to cholecystitis, criteria met by fever, tachycardia, leukocytosis, elevated lactic acid and cholecystitis - Elevated Bili, AST/ALT/ALP with lipase of 655 - Abd CT with evidence of a distended GB and sludge - Abd US with evidence of GB wall thickening - Consult surgery, GI and IR - C/w NPO, IVF, zofran and pain management - F/u Bcx and Ucx - HIDA scan and possible OR intervention this morning - C/w IV Zosyn and Vanco day 1 - F/u blood work HTN, chronic, controlled - C/w home meds as ordered DM-II, chronic, uncontrolled - C/w Slididng scale insulin/hypoglycemic protocol - Accu checks Q8H DVT PPX - SCD for now, possible surgical intervention Case discussed and patient seen with Dr. Jacobo. <Vicente Jacobo - Last Filed: 10/29/18 08:51> Results - Vital Signs Recent Vital Signs: Last Vital Signs Temp 98.6 F 10/29/18 00:00 Pulse 72 10/29/18 06:00 Resp 30 H 10/29/18 06:00 BP 71/44 L 10/29/18 06:00 Pulse Ox 96 10/29/18 06:00 - Labs Result Diagrams: 10/29/18 04:10 10/29/18 04:10 Labs: Laboratory Results - last 24 hr 10/28/18 10/28/18 10/28/18 11:06 16:19 20:38 WBC RBC Hgb Hct MCV MCH MCHC RDW Plt Count Sodium Potassium Chloride Carbon Dioxide Anion Gap BUN Creatinine Est GFR ( Amer) Est GFR (Non-Af Amer) POC Glucose (mg/dL) 298 H 282 H 257 H Random Glucose Calcium 10/29/18 10/29/18 10/29/18 00:32 04:10 04:10 WBC 13.6 H RBC 4.14 L Hgb 12.3 Hct 37.0 MCV 89.4 MCH 29.7 MCHC 33.2 RDW 14.7 H Plt Count 94 L Sodium 136 Potassium 3.7 Chloride 103 Carbon Dioxide 26 Anion Gap 11 BUN 47 H Creatinine 1.9 H Est GFR ( Amer) 41 Est GFR (Non-Af Amer) 34 POC Glucose (mg/dL) > 500 H* Random Glucose 212 H Calcium 7.7 L 10/29/18 06:56 WBC RBC Hgb Hct MCV MCH MCHC RDW Plt Count Sodium Potassium Chloride Carbon Dioxide Anion Gap BUN Creatinine Est GFR ( Amer) Est GFR (Non-Af Amer) POC Glucose (mg/dL) 187 H Random Glucose Calcium Assessment & Plan - Assessment and Plan (Free Text) Assessment: Patient was personally seen and examined by me in rounds with residents. Available labs and diagnostic data reviewed. Case, Patient's condition and management plan discussed with residents in rounds. Agree with resident's progress note. Plan: As ordered.
[2018-10-27] MEDS ORDERED: Glucagon Recombinant 1 mg Inj IM PRN (06:44)
[2018-10-27] MEDS ORDERED: Dextrose 50% SYRINGE Inj (50 ml) IV PRN (06:44)
--- NOTE | 2018-10-27 08:05 | RAD ---
Date of service: 10/27/2018 HISTORY: SOB/Tachypnea/Hypoxic COMPARISON: 10/26/2018 TECHNIQUE: 1 view obtained. FINDINGS: LUNGS: Right lung volumes low-normal. Bibasilar discoid atelectasis-the right more bandlike. The right also an interval change. PLEURA: No significant pleural effusion identified, no pneumothorax apparent. CARDIOVASCULAR: There is presence of aortic atherosclerotic calcification on x-ray. Heart size within normal limits. Probable minimal pulmonary venous congestion OSSEOUS STRUCTURES: Thoraco lumbar spondylosis. Bilateral shoulder arthrosis right greater left-. Right os acromiale VISUALIZED UPPER ABDOMEN: Normal. OTHER FINDINGS: None. IMPRESSION: Interval bibasilar subsegmental atelectasis. Probable minimal pulmonary venous congestion-an interval change. Other findings as above.
[2018-10-27 08:43] LABS: INR 2.5; PROTHROMBIN TIME 28.2 Seconds (9.8-13.1)
[2018-10-27 08:46] LABS: PARTIAL THROMBOPLASTIN TIME 30.8 Seconds (25.6-37.1)
[2018-10-27] MEDS: Insulin Regular 100 units/ml SC SCH ×3 (08:58→16:53)
[2018-10-27] MEDS ORDERED: Iodixanol 320 MG/ML 100 ML BOTTLE IV ONE (09:27)
[2018-10-27] MEDS ORDERED: Lidocaine Hydrochloride 1% 10 ML ONE (09:28)
[2018-10-27] MEDS ORDERED: Midazolam 2 MG/2 ML VIAL ONE (09:52)
--- NOTE | 2018-10-27 10:33 | PCM.SURG1 ---
Surgeon's Initial Post Op Note - Surgeon's Notes Surgeon: Ritchie Del Castillo MD Hat Blocking Operator: NONE Type of Anesthesia: IV Sedation Pre-Operative Diagnosis: Cholecystitis Operative Findings: US showed distended GB with wall thickening. Cholangiogram showed patent cystic duct. Post-Operative Diagnosis: CHolecystitis Operation Performed: Perc. cholecystostomy tube placement, 8 Fr Specimen/Specimens Removed: 10 cc of bile Estimated Blood Loss: EBL {In ML}: 2 Blood Products Given: N/A Drains Used: Jac Alonzo Post-Op Condition: Fair Date of Surgery/Procedure: 10/27/18 Time of Surgery/Procedure: 10:30
[2018-10-27 12:25] LABS: VENOUS BLOOD GAS BASE EXCESS -4.8 mmol/L (0.0-2.0); VENOUS BLOOD GAS PCO2 33 mmHg (40-60); VENOUS BLOOD GAS PO2 32 mm/Hg (30-55); VENOUS BLOOD PH 7.38 (7.32-7.43)
--- NOTE | 2018-10-27 12:43 | CP.CCUPN ---
CCU Subjective - Physician Review Subjective (Free Text): Returned from IR Perc Cholecystostomy this AM, no distress, denies any pain, N/V. Episode of desaturation early AM, IVFs stopped and given Lasix prn. Remains off vasopressors. Temps mostly 99F, no new spikes apart from T max temp of 101 on admission. SBP 130-140s, HR 100, 98% on NC; fluid balance approx. 1.0 Liter positive last 24H. ROS: No other pertinent negs or positives on 10+ system review obtainable. PMSFH: All other Nursing and physician documentation reviewed to date; no new pertinent info noted relevant to current medical problems. EXAM- HEENT: + icterus, no gaze preference, pupils equal and reactive, no nystagmus. Tongue dry. NECK: supple, no visible JVD, no adenopathy, thyroid non-palpable. CHEST: decreased BS at the bases, no wheezes audible bilaterally. HEART: regular, distant, tachy S1S2, no rubs or murmurs noted ABD: soft, no distention or tympany, no guarding or focal tenderness; BS hypoactive, drain intact. EXT: no leg edema, no cyanoisis, calf tenderness or palpable cords, distal pulses intact and symmetrical. NEURO: no gross focal motor deficits. SKIN: no rashes, warm and dry LABS: 7.38/25/80 on 32% oxygen NC Lactate = 3.9 ; 3.9, no repeat doen after 2:04PM yesterday. WBC= 14.9 HGB= 12.9 PLTs= 106 K INR= none on admission, INR 2.5 this AM. Na= 139 K= 4.1 CL= 107 HCO3= 18 BUN/Cr= 27/1.8 BS= 269 LFTs yesterday: TBili= 7.2 AST / ALT = 339/211 AP= 226 Blood cx, +GNRw Trop #1 negative EKG: sinus 82/min, no acute ischemic changes (my interp). IMPRESSION / MAJOR PROBLEMS NOW: 1. Acalculus Bee with Cholangitis 2. Azotemia / Dehydration 3. Thrombocytopenia and Coagulopathy 4. Uncontrolled DM II PLAN: 1. S/p Perc Bee, with ongoing drainage. 2. Empiric abx coverage on Zosyn / Vanco, may want to add 2nd drug for GNR coverage. Awaiting ID and sensitivity of organism. Repeat Lactate level. 3. ECHO 4. Standing IVFs stopped for now, otherwise fluid challenges as needed. 5. Repeat Coags, LFTs 6. Full code, no known Advance Directives. Monitor for need for MV support.
--- NOTE | 2018-10-27 13:04 | CT ---
PROCEDURE: Date of procedure: 10/27/2018 Procedure: 1. Percutaneous Cholecystostomy tube placement Medications: The patient was sedated by the anesthesiologist along with physiologic monitoring. 8 cubic centimeters lidocaine 2 percent FLUOROSCOPY TIME: 35.4 seconds RADIATION: 7.83 mGy HISTORY: Acute cholecystitis TECHNIQUE: Following informed consent the patient right abdomen was marked. The patient was placed supine on the interventional table and procedure time-out was called. Ultrasound showed distended gallbladder. At the patient sedated, the skin was anesthetized with 2 percent lidocaine. Under direct ultrasound guidance, a Waggl catheter was advanced percutaneously into the gallbladder. Upon return of bile, an 035 wire was advanced into the gallbladder and was coiled within the gallbladder under fluoroscopy. The tract was dilated to accommodate 8.5 Azeri drainage catheter which was formed within the gallbladder. Position of the catheter was confirmed with contrast injection which showed a distended gallbladder with multiple filling defects consistent with gallstones and no flow across the cystic duct. IMPRESSION: Percutaneous placement of a cholecystostomy tube.
--- NOTE | 2018-10-27 15:05 | CP.PCM.PN ---
<GuillerminaIndra cates - Last Filed: 10/27/18 15:01> Subjective - Date & Time of Evaluation Date of Evaluation: 10/27/18 Time of Evaluation: 15:01 - Subjective Subjective: [facility] Surgery Progress note. Dr. Marquez Pt seen and examined at bedside. No acute events reported overnight. This morning, patient obtained an IR guided Cholecystostomy tube placed with serobilious output noted. Currently, states that he would like to eat. Mild abdominal tenderness still reported. Denies any further episodes of fevers or chills. No other complaints reported Objective - Vital Signs/Intake and Output Vital Signs (last 24 hours): Temp Pulse Resp BP Pulse Ox 99.2 F 93 H 34 H 116/64 99 10/27/18 12:00 10/27/18 14:00 10/27/18 14:00 10/27/18 14:00 10/27/18 14:00 Intake and Output: 10/27/18 10/27/18 06:59 18:59 Intake Total 1350 350 Output Total 1000 Balance 1350 -650 - Medications Medications: Current Medications Acetaminophen (Tylenol 325mg Tab) 650 mg PO Q6H PRN PRN Reason: Pain, moderate (4-7) Acetaminophen (Tylenol 325mg Tab) 650 mg PO Q6H PRN PRN Reason: Fever >100.4 F Albuterol Sulfate (Albuterol 0.083% Inhal Mary (2.5 Mg/3 Ml) Ud) 2.5 mg IH RQ2 PRN PRN Reason: Shortness of Breath Dextrose (Dextrose 50% Inj) 0 ml IV STAT PRN; Protocol PRN Reason: Hypoglycemia Protocol Dextrose (Glutose 15) 0 gm PO ONCE PRN; Protocol PRN Reason: Hypoglycemia Protocol Gabapentin (Neurontin) 300 mg PO HS NOVA Glucagon (Glucagen Diagnostic Kit) 0 mg IM STAT PRN; Protocol PRN Reason: Hypoglycemia Protocol Heparin Sodium (Porcine) (Heparin) 5,000 units SC Q12 NOVA; Protocol Last Admin: 10/26/18 21:11 Dose: Not Given Home Med (Dutasteride [Avodart]) 0.5 mg PO DAILY N[facility] Piperacillin Sod/Tazobactam (Sod 2.25 gm/ Sodium Chloride) 100 mls @ 100 mls/hr IVPB Q6 NOVA; Protocol Last Admin: 10/27/18 09:31 Dose: 100 mls/hr Insulin Human Regular (Humulin R) 0 units SC ACB [facility]; Protocol Last Admin: 10/27/18 11:24 Dose: Not Given Insulin Human Regular (Humulin R) 0 units SC Q8 NOVA; Protocol Last Admin: 10/27/18 08:58 Dose: 4 u Morphine Sulfate (Morphine) 2 mg IVP Q4H PRN PRN Reason: Pain, severe (8-10) Ondansetron HCl (Zofran Inj) 4 mg IVP Q6H PRN PRN Reason: Nausea/Vomiting Pantoprazole Sodium (Protonix Inj) 40 mg IVP DAILY [facility] Last Admin: 10/27/18 08:57 Dose: 40 mg Sennosides (Senokot Tab) 8.6 mg PO HS PRN PRN Reason: Constipation - Labs Labs: 10/27/18 05:40 10/27/18 05:40 PT 28.2 Seconds (9.8-13.1) H 10/27/18 08:10 INR 2.5 10/27/18 08:10 APTT 30.8 Seconds (25.6-37.1) 10/27/18 08:10 - Constitutional Appears: Non-toxic - Head Exam Head Exam: ATRAUMATIC, NORMAL INSPECTION, NORMOCEPHALIC - Eye Exam Eye Exam: EOMI, Scleral icterus - ENT Exam ENT Exam: Mucous Membranes Moist - Respiratory Exam Respiratory Exam: NORMAL BREATHING PATTERN. absent: Accessory Muscle Use, Respiratory Distress - Cardiovascular Exam Cardiovascular Exam: RRR. absent: JVD - GI/Abdominal Exam GI & Abdominal Exam: Distended, Soft Additional comments: Does have moderate abdominal distention Right upper quadrant drain in place with serobilious output noted. - Neurological Exam Neurological Exam: Alert, Awake - Psychiatric Exam Psychiatric exam: Normal Affect, Normal Mood - Skin Skin Exam: Dry, Intact, Warm Assessment and Plan - Assessment and Plan (Free Text) Assessment: 83yo M with cholecystits possible cholangitis. S/p IR CT guided Cholecystostomy tube placement today, 10/27/18 Plan: - Continue IV Abx - Maintain Drain to self suction - Strict Is & Os - May advance diet as tolerated, gradually - Pain management - monitor for bowel function - antiemetics as needed Further recs as per Dr. Herrera PGY2 Surgery <Ruben Campbell - Last Filed: 10/29/18 16:18> Objective - Vital Signs/Intake and Output Vital Signs (last 24 hours): Temp Pulse Resp BP Pulse Ox 98.4 F 94 H 25 H 110/69 96 10/29/18 16:00 10/29/18 16:00 10/29/18 16:00 10/29/18 16:00 10/29/18 16:00 Intake and Output: 10/29/18 10/29/18 06:59 18:59 Intake Total 505 1805 Output Total 450 360 Balance 55 1445 - Medications Medications: Current Medications Acetaminophen (Tylenol 325mg Tab) 650 mg PO Q6H PRN PRN Reason: Pain, moderate (4-7) Acetaminophen (Tylenol 325mg Tab) 650 mg PO Q6H PRN PRN Reason: Fever >100.4 F Albuterol Sulfate (Albuterol 0.083% Inhal Mary (2.5 Mg/3 Ml) Ud) 2.5 mg IH RQ2 PRN PRN Reason: Shortness of Breath Dextrose (Dextrose 50% Inj) 0 ml IV STAT PRN; Protocol PRN Reason: Hypoglycemia Protocol Dextrose (Glutose 15) 0 gm PO ONCE PRN; Protocol PRN Reason: Hypoglycemia Protocol Gabapentin (Neurontin) 300 mg PO HS NOVA Last Admin: 10/28/18 21:53 Dose: 300 mg Glucagon (Glucagen Diagnostic Kit) 0 mg IM STAT PRN; Protocol PRN Reason: Hypoglycemia Protocol Guaifenesin/Dextromethorphan (Robitussin Dm) 10 ml PO TID PRN PRN Reason: Cough Stop: 11/02/18 22:47 Last Admin: 10/29/18 13:01 Dose: 10 ml Heparin Sodium (Porcine) (Heparin) 5,000 units SC Q12 [facility]; Protocol Last Admin: 10/26/18 21:11 Dose: Not Given Piperacillin Sod/Tazobactam (Sod 2.25 gm/ Sodium Chloride) 100 mls @ 100 mls/hr IVPB Q6 N[facility]; Protocol Last Admin: 10/29/18 09:47 Dose: 100 mls/hr Norepinephrine Bitartrate 8 mg (/ Dextrose) 258 mls @ 4.84 mls/hr IV .Q24H ONE; Protocol Stop: 10/30/18 06:01 Last Titration: 10/29/18 12:59 Dose: 2.5 mcg/min, 4.84 mls/hr Lactated Ringer's (Lactated Ringer's) 1,000 mls @ 100 mls/hr IV .Q10H NOVA Last Admin: 10/29/18 08:10 Dose: 100 mls/hr Insulin Human Regular (Humulin R) 0 units SC ACB [facility]; Protocol Last Admin: 10/29/18 06:58 Dose: 2 units Insulin Human Regular (Humulin R) 0 units SC Q8 [facility]; Protocol Last Admin: 10/29/18 08:56 Dose: 2 u Morphine Sulfate (Morphine) 2 mg IVP Q4H PRN PRN Reason: Pain, severe (8-10) Last Admin: 10/29/18 04:55 Dose: 2 mg Ondansetron HCl (Zofran Inj) 4 mg IVP Q6H PRN PRN Reason: Nausea/Vomiting Pantoprazole Sodium (Protonix Inj) 40 mg IVP DAILY [facility] Last Admin: 10/29/18 08:12 Dose: 40 mg Sennosides (Senokot Tab) 8.6 mg PO HS PRN PRN Reason: Constipation Tamsulosin HCl (Flomax) 0.4 mg PO DAILY [facility] Last Admin: 10/29/18 13:00 Dose: 0.4 mg - Labs Labs: 10/29/18 04:10 10/29/18 04:10 PT 28.2 Seconds (9.8-13.1) H 10/27/18 08:10 INR 2.5 10/27/18 08:10 APTT 30.8 Seconds (25.6-37.1) 10/27/18 08:10 Assessment and Plan - Assessment and Plan (Free Text) Plan: All medical record entries made by the resident were at my direction. I have reviewed the chart and agree that the record accurately reflects my personal performance of the history, physical exam, and medical decision making.
[2018-10-27] MEDS ORDERED: Insulin Regular 100 units/ml SC STA (21:48)
[2018-10-28] MEDS: Insulin Regular 100 units/ml SC SCH ×4 (00:11→17:07)
[2018-10-28 05:07] LABS: BASO % 0.1 % (0.0-2.0); EOS # 0.1 K/uL (0.0-0.7); HEMOGLOBIN 12.9 g/dL (12.0-18.0); LYMPH # 0.3 K/uL (1.0-4.3); LYMPH % 2.5 % (20.0-40.0); MEAN CORPUSCULAR HEMOGLOBIN 29.4 pg (27.0-31.0); MEAN PLATELET VOLUME 11.1 fl (7.2-11.7); MONO # 0.4 K/uL (0.0-0.8); NEUT % 93.4 % (50.0-75.0); RBC 4.39 Mil/uL (4.40-5.90); RED CELL DISTRIBUTION WIDTH 14.5 % (11.5-14.5); WHITE BLOOD COUNT 12.8 K/uL (4.8-10.8)
[2018-10-28 05:18] LABS: ALBUMIN 2.8 g/dL (3.5-5.0); ALT/SGPT 101 U/L (21-72); AST/SGOT 54 U/L (17-59); BLOOD UREA NITROGEN 37 mg/dl (9-20); CALCIUM 7.5 mg/dL (8.4-10.2); GFR NON-AFRICAN AMERICAN 34; LIPASE < 10 U/L (23-300)
--- NOTE | 2018-10-28 07:43 | CP.PCM.PN ---
<Randy Hughes - Last Filed: 10/28/18 11:18> Subjective - Date & Time of Evaluation Date of Evaluation: 10/28/18 Time of Evaluation: 07:43 - Subjective Subjective: Patient seen and examined this morning at bedside, reports feeling better, no pain at this time, started on liquid diet per surgery team, no acute overnight events reported. Afebrile. s/p Perc. cholecystostomy tube placement yesterday. Objective - Vital Signs/Intake and Output Vital Signs (last 24 hours): Temp Pulse Resp BP Pulse Ox 99.2 F 95 H 25 H 113/70 99 10/28/18 00:00 10/28/18 03:00 10/28/18 03:00 10/28/18 03:00 10/28/18 03:00 - Medications Medications: Current Medications Acetaminophen (Tylenol 325mg Tab) 650 mg PO Q6H PRN PRN Reason: Pain, moderate (4-7) Acetaminophen (Tylenol 325mg Tab) 650 mg PO Q6H PRN PRN Reason: Fever >100.4 F Albuterol Sulfate (Albuterol 0.083% Inhal Mary (2.5 Mg/3 Ml) Ud) 2.5 mg IH RQ2 PRN PRN Reason: Shortness of Breath Dextrose (Dextrose 50% Inj) 0 ml IV STAT PRN; Protocol PRN Reason: Hypoglycemia Protocol Dextrose (Glutose 15) 0 gm PO ONCE PRN; Protocol PRN Reason: Hypoglycemia Protocol Gabapentin (Neurontin) 300 mg PO HS [facility] Last Admin: 10/27/18 21:44 Dose: 300 mg Glucagon (Glucagen Diagnostic Kit) 0 mg IM STAT PRN; Protocol PRN Reason: Hypoglycemia Protocol Heparin Sodium (Porcine) (Heparin) 5,000 units SC Q12 N[facility]; Protocol Last Admin: 10/26/18 21:11 Dose: Not Given Home Med (Dutasteride [Avodart]) 0.5 mg PO DAILY NOVA Piperacillin Sod/Tazobactam (Sod 2.25 gm/ Sodium Chloride) 100 mls @ 100 mls/hr IVPB Q6 [facility]; Protocol Last Admin: 10/28/18 03:46 Dose: 100 mls/hr Norepinephrine Bitartrate 8 mg (/ Dextrose) 258 mls @ 4.84 mls/hr IV .Q24H ONE; Protocol Stop: 10/28/18 23:57 Last Admin: 10/28/18 00:46 Dose: 2.5 mcg/min, 4.84 mls/hr Potassium Chloride (Potassium Cl 10meq/50ml Sterile Water) 50 mls @ 50 mls/hr IVPB Q1 NOVA Stop: 10/28/18 12:59 Insulin Human Regular (Humulin R) 0 units SC ACB [facility]; Protocol Last Admin: 10/27/18 11:24 Dose: Not Given Insulin Human Regular (Humulin R) 0 units SC Q8 N[facility]; Protocol Last Admin: 10/28/18 00:11 Dose: 2 u Morphine Sulfate (Morphine) 2 mg IVP Q4H PRN PRN Reason: Pain, severe (8-10) Last Admin: 10/28/18 05:43 Dose: 2 mg Ondansetron HCl (Zofran Inj) 4 mg IVP Q6H PRN PRN Reason: Nausea/Vomiting Pantoprazole Sodium (Protonix Inj) 40 mg IVP DAILY [facility] Last Admin: 10/27/18 08:57 Dose: 40 mg Sennosides (Senokot Tab) 8.6 mg PO HS PRN PRN Reason: Constipation - Labs Labs: 10/28/18 04:53 10/28/18 04:53 PT 28.2 Seconds (9.8-13.1) H 10/27/18 08:10 INR 2.5 10/27/18 08:10 APTT 30.8 Seconds (25.6-37.1) 10/27/18 08:10 - Constitutional Appears: Non-toxic, No Acute Distress - Head Exam Head Exam: NORMAL INSPECTION - Eye Exam Eye Exam: EOMI, PERRL, Scleral icterus. absent: Nystagmus - ENT Exam ENT Exam: Mucous Membranes Moist - Neck Exam Neck Exam: Full ROM. absent: Lymphadenopathy, Tenderness, Thyromegaly - Respiratory Exam Respiratory Exam: Clear to Ausculation Bilateral, NORMAL BREATHING PATTERN. absent: Chest Wall Tenderness - Cardiovascular Exam Cardiovascular Exam: Tachycardia, REGULAR RHYTHM, +S1, +S2 - GI/Abdominal Exam GI & Abdominal Exam: Soft, Tenderness (mild diffuse), Normal Bowel Sounds. absent: Distended, Guarding Additional comments: COLTEN drain in place with minimal serosanguineous output - Extremities Exam Extremities Exam: absent: Calf Tenderness, Pedal Edema - Neurological Exam Neurological Exam: Alert, Awake, Oriented x3 - Psychiatric Exam Psychiatric exam: Normal Mood - Skin Skin Exam: Dry, Warm. absent: Normal Color (Jaundice noted) Assessment and Plan - Assessment and Plan (Free Text) Assessment: 83 y/o M with PMH of HTN, DM-II and urinary retention admitted to [facility] for evaluation and treatment of sepsis/Cholecystitis. Gram negative septicemia/ cholecystitis, criteria met by fever, tachycardia, leukocytosis, elevated lactic acid and cholecystitis - bile and blood cx growing Gram (-) roxanna - s/p Perc. cholecystostomy tube placement, 8 Fr, drain 10 cc of bile. US showed distended GB with wall thickening. Cholangiogram showed patent cystic duct - Elevated Bili - AST/ALT/ALP and lipase trending down - Abd CT with evidence of a distended GB and sludge - General surgery and GI on board, input appreciated - C/w IVF, zofran and pain management - C/w IV Zosyn and Vanco day 1 - liquid diet - F/u blood work - Rest of plan as ordered Hypokalemia - K+ 2.9, replacing HTN, chronic, controlled - C/w home meds as ordered DM-II, chronic, uncontrolled - C/w Slididng scale insulin/hypoglycemic protocol - Accu checks Q8H DVT PPX - SCD for now Case discussed and patient seen with Dr. Jacobo. <Vicente Jacobo - Last Filed: 10/30/18 15:23> Objective - Vital Signs/Intake and Output Vital Signs (last 24 hours): Temp Pulse Resp BP Pulse Ox 98.2 F 92 H 21 106/67 99 10/30/18 12:00 10/30/18 12:00 10/30/18 12:00 10/30/18 12:00 10/30/18 12:00 Intake and Output: 10/30/18 10/30/18 11:59 23:59 Intake Total 325 Output Total 270 Balance 55 - Medications Medications: Current Medications Acetaminophen (Tylenol 325mg Tab) 650 mg PO Q6H PRN PRN Reason: Pain, moderate (4-7) Acetaminophen (Tylenol 325mg Tab) 650 mg PO Q6H PRN PRN Reason: Fever >100.4 F Albuterol Sulfate (Albuterol 0.083% Inhal Mary (2.5 Mg/3 Ml) Ud) 2.5 mg IH RQ2 PRN PRN Reason: Shortness of Breath Dextrose (Dextrose 50% Inj) 0 ml IV STAT PRN; Protocol PRN Reason: Hypoglycemia Protocol Dextrose (Glutose 15) 0 gm PO ONCE PRN; Protocol PRN Reason: Hypoglycemia Protocol Gabapentin (Neurontin) 300 mg PO HS NOVA Last Admin: 10/29/18 21:34 Dose: 300 mg Glucagon (Glucagen Diagnostic Kit) 0 mg IM STAT PRN; Protocol PRN Reason: Hypoglycemia Protocol Guaifenesin/Dextromethorphan (Robitussin Dm) 10 ml PO TID PRN PRN Reason: Cough Stop: 11/02/18 22:47 Last Admin: 10/29/18 13:01 Dose: 10 ml Heparin Sodium (Porcine) (Heparin) 5,000 units SC Q12 NOVA; Protocol Last Admin: 10/26/18 21:11 Dose: Not Given Piperacillin Sod/Tazobactam (Sod 2.25 gm/ Sodium Chloride) 100 mls @ 100 mls/hr IVPB Q6 N[facility]; Protocol Last Admin: 10/30/18 09:52 Dose: 100 mls/hr Lactated Ringer's (Lactated Ringer's) 1,000 mls @ 100 mls/hr IV .Q10H NOVA Last Admin: 10/29/18 08:10 Dose: 100 mls/hr Insulin Human Regular (Humulin R) 0 units SC ACB [facility]; Protocol Last Admin: 10/30/18 06:39 Dose: 4 units Insulin Human Regular (Humulin R) 0 units SC Q8 NOVA; Protocol Last Admin: 10/30/18 08:30 Dose: 4 u Morphine Sulfate (Morphine) 2 mg IVP Q4H PRN PRN Reason: Pain, severe (8-10) Last Admin: 10/29/18 04:55 Dose: 2 mg Ondansetron HCl (Zofran Inj) 4 mg IVP Q6H PRN PRN Reason: Nausea/Vomiting Pantoprazole Sodium (Protonix Inj) 40 mg IVP DAILY [facility] Last Admin: 10/30/18 08:25 Dose: 40 mg Sennosides (Senokot Tab) 8.6 mg PO HS PRN PRN Reason: Constipation Tamsulosin HCl (Flomax) 0.4 mg PO DAILY [facility] Last Admin: 10/30/18 08:25 Dose: 0.4 mg - Labs Labs: 10/30/18 04:08 10/30/18 04:08 PT 28.2 Seconds (9.8-13.1) H 10/27/18 08:10 INR 2.5 10/27/18 08:10 APTT 30.8 Seconds (25.6-37.1) 10/27/18 08:10 Assessment and Plan - Assessment and Plan (Free Text) Assessment: Patient was personally seen and examined by me in rounds with residents. Available labs and diagnostic data reviewed. Case, Patient's condition and management plan discussed with residents in rounds. Agree with resident's progress note. Plan: As ordered.
[2018-10-28] MEDS: Potassium CL 10 MEQ/50 ML 50 ML IVPB SCH ×6 (08:53→16:04)
[2018-10-28] MEDS: guaiFENesin DM 200 mg-20 mg/10 ml UD PO PRN (22:56)
[2018-10-29] MEDS ORDERED: Insulin Regular 100 units/ml SC STA (01:01)
[2018-10-29] MEDS: Insulin Regular 100 units/ml SC SCH ×4 (01:02→16:29)
[2018-10-29] MEDS ORDERED: Sodium Chloride 0.9% 500 ML IV ONE (04:31)
[2018-10-29 04:53] LABS: HEMOGLOBIN 12.3 g/dL (12.0-18.0); MEAN CELL VOLUME 89.4 fl (80.0-94.0); MEAN CORPUSCULAR HEMOGLOBIN 29.7 pg (27.0-31.0); MEAN CORPUSCULAR HGB CONC 33.2 g/dL (33.0-37.0); RBC 4.14 Mil/uL (4.40-5.90); RED CELL DISTRIBUTION WIDTH 14.7 % (11.5-14.5); WHITE BLOOD COUNT 13.6 K/uL (4.8-10.8)
[2018-10-29 05:09] LABS: CALCIUM 7.7 mg/dL (8.4-10.2)
[2018-10-29] MEDS ORDERED: Lactated Ringer's 1,000 ML IV SCH (07:30)
[2018-10-29] MEDS ORDERED: Lactated Ringer's 500 ML IV SCH (07:45)
--- NOTE | 2018-10-29 08:08 | CP.PCM.PN ---
<Randy Hughes - Last Filed: 10/29/18 10:12> Subjective - Date & Time of Evaluation Date of Evaluation: 10/29/18 Time of Evaluation: 08:08 - Subjective Subjective: Patient seen and examined this morning at bedside, reports feeling better reporting mild abd pain on the R side, no acute overnight events reported. Tolerating PO, afebrile BP on the low side Objective - Vital Signs/Intake and Output Vital Signs (last 24 hours): Temp Pulse Resp BP Pulse Ox 98.6 F 72 30 H 71/44 L 96 10/29/18 00:00 10/29/18 06:00 10/29/18 06:00 10/29/18 06:00 10/29/18 06:00 Intake and Output: 10/29/18 10/29/18 06:59 18:59 Intake Total 505 Output Total 450 60 Balance 55 -60 - Medications Medications: Current Medications Acetaminophen (Tylenol 325mg Tab) 650 mg PO Q6H PRN PRN Reason: Pain, moderate (4-7) Acetaminophen (Tylenol 325mg Tab) 650 mg PO Q6H PRN PRN Reason: Fever >100.4 F Albuterol Sulfate (Albuterol 0.083% Inhal Mary (2.5 Mg/3 Ml) Ud) 2.5 mg IH RQ2 PRN PRN Reason: Shortness of Breath Dextrose (Dextrose 50% Inj) 0 ml IV STAT PRN; Protocol PRN Reason: Hypoglycemia Protocol Dextrose (Glutose 15) 0 gm PO ONCE PRN; Protocol PRN Reason: Hypoglycemia Protocol Gabapentin (Neurontin) 300 mg PO HS NOVA Last Admin: 10/28/18 21:53 Dose: 300 mg Glucagon (Glucagen Diagnostic Kit) 0 mg IM STAT PRN; Protocol PRN Reason: Hypoglycemia Protocol Guaifenesin/Dextromethorphan (Robitussin Dm) 10 ml PO TID PRN PRN Reason: Cough Stop: 11/02/18 22:47 Last Admin: 10/28/18 22:56 Dose: 10 ml Heparin Sodium (Porcine) (Heparin) 5,000 units SC Q12 NOVA; Protocol Last Admin: 10/26/18 21:11 Dose: Not Given Home Med (Dutasteride [Avodart]) 0.5 mg PO DAILY [facility] Piperacillin Sod/Tazobactam (Sod 2.25 gm/ Sodium Chloride) 100 mls @ 100 mls/hr IVPB Q6 [facility]; Protocol Last Admin: 10/29/18 04:17 Dose: 100 mls/hr Norepinephrine Bitartrate 8 mg (/ Dextrose) 258 mls @ 4.84 mls/hr IV .Q24H ONE; Protocol Stop: 10/30/18 06:01 Last Titration: 10/29/18 06:54 Dose: 5 mcg/min, 9.68 mls/hr Lactated Ringer's (Lactated Ringer's) 1,000 mls @ 100 mls/hr IV .Q10H NOVA Lactated Ringer's (Lactated Ringer's 500ml) 500 mls @ 999 mls/hr IV .Q31M NOVA Stop: 10/29/18 08:45 Last Admin: 10/29/18 07:57 Dose: 999 mls/hr Insulin Human Regular (Humulin R) 0 units SC ACB [facility]; Protocol Last Admin: 10/29/18 06:58 Dose: 2 units Insulin Human Regular (Humulin R) 0 units SC Q8 N[facility]; Protocol Last Admin: 10/29/18 01:02 Dose: Not Given Morphine Sulfate (Morphine) 2 mg IVP Q4H PRN PRN Reason: Pain, severe (8-10) Last Admin: 10/29/18 04:55 Dose: 2 mg Ondansetron HCl (Zofran Inj) 4 mg IVP Q6H PRN PRN Reason: Nausea/Vomiting Pantoprazole Sodium (Protonix Inj) 40 mg IVP DAILY [facility] Last Admin: 10/28/18 08:50 Dose: 40 mg Sennosides (Senokot Tab) 8.6 mg PO HS PRN PRN Reason: Constipation - Labs Labs: 10/29/18 04:10 10/29/18 04:10 PT 28.2 Seconds (9.8-13.1) H 10/27/18 08:10 INR 2.5 10/27/18 08:10 APTT 30.8 Seconds (25.6-37.1) 10/27/18 08:10 - Constitutional Appears: Non-toxic, No Acute Distress - Head Exam Head Exam: NORMAL INSPECTION - Eye Exam Eye Exam: EOMI, PERRL, Scleral icterus - ENT Exam ENT Exam: Mucous Membranes Moist - Neck Exam Neck Exam: Full ROM. absent: Lymphadenopathy, Tenderness, Thyromegaly - Respiratory Exam Respiratory Exam: Clear to Ausculation Bilateral, NORMAL BREATHING PATTERN. absent: Rales, Wheezes - Cardiovascular Exam Cardiovascular Exam: REGULAR RHYTHM, +S1, +S2. absent: Tachycardia - GI/Abdominal Exam GI & Abdominal Exam: Distended (diffuse), Soft, Tenderness (mild on R side), Normal Bowel Sounds. absent: Guarding Additional comments: COLTEN drain in place with minimal serosanguineous output - Neurological Exam Neurological Exam: Alert, Awake, CN II-XII Intact, Oriented x3 - Psychiatric Exam Psychiatric exam: Normal Mood - Skin Skin Exam: Dry, Warm. absent: Normal Color (jaudinced) Assessment and Plan - Assessment and Plan (Free Text) Assessment: 83 y/o M with PMH of HTN, DM-II and urinary retention admitted to [facility] for evaluation and treatment of sepsis/Cholecystitis. Gram negative septicemia/ cholecystitis, criteria met by fever, tachycardia, leukocytosis, elevated lactic acid and cholecystitis - bile and blood cx positive for E coli - s/p Perc. cholecystostomy tube placement - US showed distended GB with wall thickening. Cholangiogram showed patent cystic duct - Elevated Bili - AST/ALT/ALP and lipase trending down - Abd CT with evidence of a distended GB and sludge - General surgery and GI on board, input appreciated - C/w IVF, zofran and pain management - C/w IV Zosyn day 4 - F/u blood work - Rest of plan as ordered Hypokalemia - resolved - monitor labs HTN, chronic, controlled - C/w home meds as ordered DM-II, chronic, uncontrolled - C/w Slididng scale insulin/hypoglycemic protocol - Accu checks Q8H DVT PPX - SCD for now Case discussed and patient seen with Dr. Jacobo. <Vicente Jacobo - Last Filed: 10/30/18 15:22> Objective - Vital Signs/Intake and Output Vital Signs (last 24 hours): Temp Pulse Resp BP Pulse Ox 98.2 F 92 H 21 106/67 99 10/30/18 12:00 10/30/18 12:00 10/30/18 12:00 10/30/18 12:00 10/30/18 12:00 Intake and Output: 10/30/18 10/30/18 11:59 23:59 Intake Total 325 Output Total 270 Balance 55 - Medications Medications: Current Medications Acetaminophen (Tylenol 325mg Tab) 650 mg PO Q6H PRN PRN Reason: Pain, moderate (4-7) Acetaminophen (Tylenol 325mg Tab) 650 mg PO Q6H PRN PRN Reason: Fever >100.4 F Albuterol Sulfate (Albuterol 0.083% Inhal Mary (2.5 Mg/3 Ml) Ud) 2.5 mg IH RQ2 PRN PRN Reason: Shortness of Breath Dextrose (Dextrose 50% Inj) 0 ml IV STAT PRN; Protocol PRN Reason: Hypoglycemia Protocol Dextrose (Glutose 15) 0 gm PO ONCE PRN; Protocol PRN Reason: Hypoglycemia Protocol Gabapentin (Neurontin) 300 mg PO HS NOVA Last Admin: 10/29/18 21:34 Dose: 300 mg Glucagon (Glucagen Diagnostic Kit) 0 mg IM STAT PRN; Protocol PRN Reason: Hypoglycemia Protocol Guaifenesin/Dextromethorphan (Robitussin Dm) 10 ml PO TID PRN PRN Reason: Cough Stop: 11/02/18 22:47 Last Admin: 10/29/18 13:01 Dose: 10 ml Heparin Sodium (Porcine) (Heparin) 5,000 units SC Q12 NOVA; Protocol Last Admin: 10/26/18 21:11 Dose: Not Given Piperacillin Sod/Tazobactam (Sod 2.25 gm/ Sodium Chloride) 100 mls @ 100 mls/hr IVPB Q6 [facility]; Protocol Last Admin: 10/30/18 09:52 Dose: 100 mls/hr Lactated Ringer's (Lactated Ringer's) 1,000 mls @ 100 mls/hr IV .Q10H [facility] Last Admin: 10/29/18 08:10 Dose: 100 mls/hr Insulin Human Regular (Humulin R) 0 units SC ACB [facility]; Protocol Last Admin: 10/30/18 06:39 Dose: 4 units Insulin Human Regular (Humulin R) 0 units SC Q8 [facility]; Protocol Last Admin: 10/30/18 08:30 Dose: 4 u Morphine Sulfate (Morphine) 2 mg IVP Q4H PRN PRN Reason: Pain, severe (8-10) Last Admin: 10/29/18 04:55 Dose: 2 mg Ondansetron HCl (Zofran Inj) 4 mg IVP Q6H PRN PRN Reason: Nausea/Vomiting Pantoprazole Sodium (Protonix Inj) 40 mg IVP DAILY [facility] Last Admin: 10/30/18 08:25 Dose: 40 mg Sennosides (Senokot Tab) 8.6 mg PO HS PRN PRN Reason: Constipation Tamsulosin HCl (Flomax) 0.4 mg PO DAILY [facility] Last Admin: 10/30/18 08:25 Dose: 0.4 mg - Labs Labs: 10/30/18 04:08 10/30/18 04:08 PT 28.2 Seconds (9.8-13.1) H 10/27/18 08:10 INR 2.5 10/27/18 08:10 APTT 30.8 Seconds (25.6-37.1) 10/27/18 08:10 Assessment and Plan - Assessment and Plan (Free Text) Assessment: Patient was personally seen and examined by me in rounds with residents. Available labs and diagnostic data reviewed. Case, Patient's condition and management plan discussed with residents in rounds. Agree with resident's progress note. Plan: As ordered.
[2018-10-29] MEDS: guaiFENesin DM 200 mg-20 mg/10 ml UD PO PRN ×2 (08:57→13:01)
[2018-10-29] MEDS ORDERED: guaiFENesin DM 200 mg-20 mg/10 ml UD PO SCH (09:00)
--- NOTE | 2018-10-29 12:20 | RAD ---
Date of service: 10/29/2018 HISTORY: assess for pulmonary congestion COMPARISON: 10/27/2018. FINDINGS: LUNGS: Improved aeration of the lungs. PLEURA: No significant pleural effusion identified, no pneumothorax apparent. CARDIOVASCULAR: Atherosclerotic calcifications identified primarily aortic arch. No radiographic findings to suggest acute or significant cardiovascular disease. OSSEOUS STRUCTURES: No significant abnormalities. VISUALIZED UPPER ABDOMEN: Normal. OTHER FINDINGS: None. IMPRESSION: Interval improvement with respect aeration of the lungs. No evidence of pulmonary vascular congestion/CHF.
--- NOTE | 2018-10-29 12:45 | CP.PCM.CON ---
History of Present Illness - History of Present Illness History of Present Illness: This patient who is 83 years of age male I was called to see him for abnormal kidney function. Patient admitted with abdominal pain and presented with acute cholecystitis a distention and he underwent by the IR cholecystectomy with a drainage. And noted some creatinine has been rising slightly. Patient stated that he complained of some abdominal pain now but not terribly as before and appears to be subsided. His past medical history diabetes mellitus patient stated he has a history of chronic kidney disease History of hypertension Social history as noted in the medical record and reviewed which is not contributory to the current problem Review of Systems - Constitutional Constitutional: Anorexia. absent: Chills - EENT Eyes: absent: Exophthalmos Nose/Mouth/Throat: absent: Nasal Congestion, Post Nasal Drip, Hoarsness - Cardiovascular Cardiovascular: absent: Chest Pain, Chest Pain at Rest, Dyspnea, Orthopnea - Respiratory Respiratory: absent: Cough, Dyspnea, Hemoptysis, Chest Congestion - Gastrointestinal Gastrointestinal: Bloating. absent: Coffee Ground Emesis, Cramping, Melena - Genitourinary Genitourinary: Nocturia - Musculoskeletal Musculoskeletal: Muscle Weakness. absent: Numbness - Neurological Neurological: absent: Confusion, Disequilibrium, Focal Weakness - Psychiatric Psychiatric: absent: Anxiety, Confusion - Endocrine Endocrine: Fatigue - Hematologic/Lymphatic Hematologic: absent: Easy Bleeding Past Patient History - Infectious Disease Hx of Infectious Diseases: None - Past Medical History & Family History Past Medical History?: Yes - Past Social History Smoking Status: Never Smoked - CARDIAC Hx Hypertension: Yes - ENDOCRINE/METABOLIC Hx Endocrine Disorders: Yes - MUSCULOSKELETAL/RHEUMATOLOGICAL Hx Falls: Yes - PSYCHIATRIC Hx Substance Use: No - SURGICAL HISTORY Hx Surgeries: No - ANESTHESIA Hx Anesthesia: No Meds Allergies/Adverse Reactions: Allergies Allergy/AdvReac Type Severity Reaction Status Date / Time No Known Allergies Allergy Verified 10/26/18 10:07 - Medications Medications: Current Medications Acetaminophen (Tylenol 325mg Tab) 650 mg PO Q6H PRN PRN Reason: Pain, moderate (4-7) Acetaminophen (Tylenol 325mg Tab) 650 mg PO Q6H PRN PRN Reason: Fever >100.4 F Albuterol Sulfate (Albuterol 0.083% Inhal Mary (2.5 Mg/3 Ml) Ud) 2.5 mg IH RQ2 PRN PRN Reason: Shortness of Breath Dextrose (Dextrose 50% Inj) 0 ml IV STAT PRN; Protocol PRN Reason: Hypoglycemia Protocol Dextrose (Glutose 15) 0 gm PO ONCE PRN; Protocol PRN Reason: Hypoglycemia Protocol Gabapentin (Neurontin) 300 mg PO HS [facility] Last Admin: 10/28/18 21:53 Dose: 300 mg Glucagon (Glucagen Diagnostic Kit) 0 mg IM STAT PRN; Protocol PRN Reason: Hypoglycemia Protocol Guaifenesin/Dextromethorphan (Robitussin Dm) 10 ml PO TID PRN PRN Reason: Cough Stop: 11/02/18 22:47 Last Admin: 10/29/18 08:57 Dose: 10 ml Heparin Sodium (Porcine) (Heparin) 5,000 units SC Q12 [facility]; Protocol Last Admin: 10/26/18 21:11 Dose: Not Given Piperacillin Sod/Tazobactam (Sod 2.25 gm/ Sodium Chloride) 100 mls @ 100 mls/hr IVPB Q6 [facility]; Protocol Last Admin: 10/29/18 09:47 Dose: 100 mls/hr Norepinephrine Bitartrate 8 mg (/ Dextrose) 258 mls @ 4.84 mls/hr IV .Q24H [facility]; Protocol Stop: 10/30/18 06:01 Last Titration: 10/29/18 06:54 Dose: 5 mcg/min, 9.68 mls/hr Lactated Ringer's (Lactated Ringer's) 1,000 mls @ 100 mls/hr IV .Q10H [facility] Last Admin: 10/29/18 08:10 Dose: 100 mls/hr Insulin Human Regular (Humulin R) 0 units SC ACB [facility]; Protocol Last Admin: 10/29/18 06:58 Dose: 2 units Insulin Human Regular (Humulin R) 0 units SC Q8 [facility]; Protocol Last Admin: 10/29/18 08:56 Dose: 2 u Morphine Sulfate (Morphine) 2 mg IVP Q4H PRN PRN Reason: Pain, severe (8-10) Last Admin: 10/29/18 04:55 Dose: 2 mg Ondansetron HCl (Zofran Inj) 4 mg IVP Q6H PRN PRN Reason: Nausea/Vomiting Pantoprazole Sodium (Protonix Inj) 40 mg IVP DAILY [facility] Last Admin: 10/29/18 08:12 Dose: 40 mg Sennosides (Senokot Tab) 8.6 mg PO HS PRN PRN Reason: Constipation Tamsulosin HCl (Flomax) 0.4 mg PO DAILY [facility] Physical Exam - Constitutional Appears: No Acute Distress - Eye Exam Eye Exam: Conjunctival injection - ENT Exam ENT Exam: Mucous Membranes Moist - Respiratory Exam Respiratory Exam: absent: Chest Wall Tenderness, Rhonchi - Cardiovascular Exam Cardiovascular Exam: absent: Gallop, Rubs - GI/Abdominal Exam GI & Abdominal Exam: Normal Bowel Sounds, Soft. absent: Guarding - Extremities Exam Extremities exam: Negative for: calf tenderness - Back Exam Back exam: absent: CVA tenderness (L), CVA tenderness (R) - Neurological Exam Neurological exam: Alert - Psychiatric Exam Psychiatric exam: Normal Affect Results - Vital Signs Recent Vital Signs: Last Vital Signs Temp 98.7 F 10/29/18 12:00 Pulse 89 10/29/18 12:00 Resp 25 H 10/29/18 12:00 BP 112/82 10/29/18 12:00 Pulse Ox 98 10/29/18 12:00 - Labs Result Diagrams: 10/29/18 04:10 10/29/18 04:10 Labs: Laboratory Results - last 24 hr 10/28/18 10/28/18 10/28/18 11:06 16:19 20:38 WBC RBC Hgb Hct MCV MCH MCHC RDW Plt Count Sodium Potassium Chloride Carbon Dioxide Anion Gap BUN Creatinine Est GFR ( Amer) Est GFR (Non-Af Amer) POC Glucose (mg/dL) 298 H 282 H 257 H Random Glucose Calcium 10/29/18 10/29/18 10/29/18 00:32 04:10 04:10 WBC 13.6 H RBC 4.14 L Hgb 12.3 Hct 37.0 MCV 89.4 MCH 29.7 MCHC 33.2 RDW 14.7 H Plt Count 94 L Sodium 136 Potassium 3.7 Chloride 103 Carbon Dioxide 26 Anion Gap 11 BUN 47 H Creatinine 1.9 H Est GFR ( Amer) 41 Est GFR (Non-Af Amer) 34 POC Glucose (mg/dL) > 500 H* Random Glucose 212 H Calcium 7.7 L 10/29/18 06:56 WBC RBC Hgb Hct MCV MCH MCHC RDW Plt Count Sodium Potassium Chloride Carbon Dioxide Anion Gap BUN Creatinine Est GFR ( Amer) Est GFR (Non-Af Amer) POC Glucose (mg/dL) 187 H Random Glucose Calcium Assessment & Plan (1) SOO (acute kidney injury) Assessment and Plan: It appears this patient has acute kidney injury superimposed on chronic kidney disease stage III from the history. Probably related to sepsis when he was admitted with acute cholecystitis worsening his creatinine Status post percutaneous cholecystectomy by interventional radiologist with a drainage diabetes mellitus Recommendation Patient was given volume and IV fluid which has been stopped Serum creatinine appears to be stable around 1.8-1.9 and not sure what his baseline since the patient stated that he has history of chronic kidney disease Stat spot urine for sodium osmolarity and creatinine Antibiotics adjustment per GFR Avoid hypotension, at the present hemodynamically stable I will order serum phosphorus and PTH because of the CKD history Status: Acute (2) Cholecystitis Status: Acute Priority: High (3) Severe sepsis Status: Acute Priority: High (4) Uncontrolled diabetes mellitus Status: Acute Priority: High
[2018-10-29 14:08] LABS: CREATININE, RANDOM URINE 123.1 mg/dL
--- NOTE | 2018-10-29 16:21 | CP.PCM.PN ---
<VinaymiloNyah - Last Filed: 10/29/18 16:24> Subjective - Date & Time of Evaluation Date of Evaluation: 10/29/18 Time of Evaluation: 16:18 - Subjective Subjective: Surgery Progress Note for Dr. Marquez 83M seen and evaluated at bedside today. No acute events overnight. Right sided abdominal pain. Denies f/c, n/v/d, SOB, CP, or urinary symptoms. Objective - Vital Signs/Intake and Output Vital Signs (last 24 hours): Temp Pulse Resp BP Pulse Ox 98.7 F 97 H 28 H 136/86 96 10/29/18 12:00 10/29/18 13:56 10/29/18 13:56 10/29/18 13:56 10/29/18 13:56 Intake and Output: 10/29/18 10/29/18 06:59 18:59 Intake Total 505 1805 Output Total 450 360 Balance 55 1445 - Medications Medications: Current Medications Acetaminophen (Tylenol 325mg Tab) 650 mg PO Q6H PRN PRN Reason: Pain, moderate (4-7) Acetaminophen (Tylenol 325mg Tab) 650 mg PO Q6H PRN PRN Reason: Fever >100.4 F Albuterol Sulfate (Albuterol 0.083% Inhal Mary (2.5 Mg/3 Ml) Ud) 2.5 mg IH RQ2 PRN PRN Reason: Shortness of Breath Dextrose (Dextrose 50% Inj) 0 ml IV STAT PRN; Protocol PRN Reason: Hypoglycemia Protocol Dextrose (Glutose 15) 0 gm PO ONCE PRN; Protocol PRN Reason: Hypoglycemia Protocol Gabapentin (Neurontin) 300 mg PO HS [facility] Last Admin: 10/28/18 21:53 Dose: 300 mg Glucagon (Glucagen Diagnostic Kit) 0 mg IM STAT PRN; Protocol PRN Reason: Hypoglycemia Protocol Guaifenesin/Dextromethorphan (Robitussin Dm) 10 ml PO TID PRN PRN Reason: Cough Stop: 11/02/18 22:47 Last Admin: 10/29/18 13:01 Dose: 10 ml Heparin Sodium (Porcine) (Heparin) 5,000 units SC Q12 [facility]; Protocol Last Admin: 10/26/18 21:11 Dose: Not Given Piperacillin Sod/Tazobactam (Sod 2.25 gm/ Sodium Chloride) 100 mls @ 100 mls/hr IVPB Q6 [facility]; Protocol Last Admin: 10/29/18 09:47 Dose: 100 mls/hr Norepinephrine Bitartrate 8 mg (/ Dextrose) 258 mls @ 4.84 mls/hr IV .Q24H ONE; Protocol Stop: 10/30/18 06:01 Last Titration: 10/29/18 12:59 Dose: 2.5 mcg/min, 4.84 mls/hr Lactated Ringer's (Lactated Ringer's) 1,000 mls @ 100 mls/hr IV .Q10H [facility] Last Admin: 10/29/18 08:10 Dose: 100 mls/hr Insulin Human Regular (Humulin R) 0 units SC ACB [facility]; Protocol Last Admin: 10/29/18 06:58 Dose: 2 units Insulin Human Regular (Humulin R) 0 units SC Q8 [facility]; Protocol Last Admin: 10/29/18 08:56 Dose: 2 u Morphine Sulfate (Morphine) 2 mg IVP Q4H PRN PRN Reason: Pain, severe (8-10) Last Admin: 10/29/18 04:55 Dose: 2 mg Ondansetron HCl (Zofran Inj) 4 mg IVP Q6H PRN PRN Reason: Nausea/Vomiting Pantoprazole Sodium (Protonix Inj) 40 mg IVP DAILY [facility] Last Admin: 10/29/18 08:12 Dose: 40 mg Sennosides (Senokot Tab) 8.6 mg PO HS PRN PRN Reason: Constipation Tamsulosin HCl (Flomax) 0.4 mg PO DAILY [facility] Last Admin: 10/29/18 13:00 Dose: 0.4 mg - Labs Labs: 10/29/18 04:10 10/29/18 04:10 PT 28.2 Seconds (9.8-13.1) H 10/27/18 08:10 INR 2.5 10/27/18 08:10 APTT 30.8 Seconds (25.6-37.1) 10/27/18 08:10 - Constitutional Appears: Well - Head Exam Head Exam: ATRAUMATIC, NORMAL INSPECTION, NORMOCEPHALIC - Eye Exam Eye Exam: EOMI - ENT Exam ENT Exam: Mucous Membranes Dry - Respiratory Exam Respiratory Exam: NORMAL BREATHING PATTERN. absent: Wheezes, Respiratory Distress - Cardiovascular Exam Cardiovascular Exam: REGULAR RHYTHM - GI/Abdominal Exam GI & Abdominal Exam: Soft, Tenderness, Normal Bowel Sounds. absent: Distended - Neurological Exam Neurological Exam: Alert, Awake Assessment and Plan - Assessment and Plan (Free Text) Assessment: 83M s/p joshua tube POD2 Plan: Recommend ERCP if patient does not clinically improve Monitor liver enzymes FU hepatitis panel D/w Dr. Roberson PGY1 <Ruben Campbell N - Last Filed: 10/31/18 12:26> Objective - Vital Signs/Intake and Output Vital Signs (last 24 hours): Temp Pulse Resp BP Pulse Ox 98.2 F 101 H 22 100/66 100 10/31/18 08:00 10/31/18 11:00 10/31/18 11:00 10/31/18 11:00 10/31/18 11:00 Intake and Output: 10/31/18 10/31/18 06:59 18:59 Intake Total 204 310 Output Total 800 150 Balance -596 160 - Medications Medications: Current Medications Acetaminophen (Tylenol 325mg Tab) 650 mg PO Q6H PRN PRN Reason: Pain, moderate (4-7) Acetaminophen (Tylenol 325mg Tab) 650 mg PO Q6H PRN PRN Reason: Fever >100.4 F Albuterol Sulfate (Albuterol 0.083% Inhal Mary (2.5 Mg/3 Ml) Ud) 2.5 mg IH RQ2 PRN PRN Reason: Shortness of Breath Dextrose (Dextrose 50% Inj) 0 ml IV STAT PRN; Protocol PRN Reason: Hypoglycemia Protocol Dextrose (Glutose 15) 0 gm PO ONCE PRN; Protocol PRN Reason: Hypoglycemia Protocol Gabapentin (Neurontin) 300 mg PO HS [facility] Last Admin: 10/30/18 21:50 Dose: 300 mg Glucagon (Glucagen Diagnostic Kit) 0 mg IM STAT PRN; Protocol PRN Reason: Hypoglycemia Protocol Guaifenesin/Dextromethorphan (Robitussin Dm) 10 ml PO TID PRN PRN Reason: Cough Stop: 11/02/18 22:47 Last Admin: 10/29/18 13:01 Dose: 10 ml Heparin Sodium (Porcine) (Heparin) 5,000 units SC Q12 [facility]; Protocol Last Admin: 10/26/18 21:11 Dose: Not Given Piperacillin Sod/Tazobactam (Sod 2.25 gm/ Sodium Chloride) 100 mls @ 100 mls/hr IVPB Q6 [facility]; Protocol Last Admin: 10/31/18 09:00 Dose: 100 mls/hr Lactated Ringer's (Lactated Ringer's) 1,000 mls @ 100 mls/hr IV .Q10H [facility] Last Admin: 10/29/18 08:10 Dose: 100 mls/hr Norepinephrine Bitartrate 16 (mg/ Dextrose) 266 mls @ 2.49 mls/hr IV .Q24H [facility] Stop: 10/31/18 21:55 Last Admin: 10/31/18 00:38 Dose: 2.49 mls/hr Insulin Human Lispro (Humalog) 0 units SC Q6H [facility]; Protocol Morphine Sulfate (Morphine) 2 mg IVP Q4H PRN PRN Reason: Pain, severe (8-10) Last Admin: 10/31/18 01:00 Dose: 2 mg Ondansetron HCl (Zofran Inj) 4 mg IVP Q6H PRN PRN Reason: Nausea/Vomiting Pantoprazole Sodium (Protonix Inj) 40 mg IVP DAILY [facility] Last Admin: 10/31/18 10:27 Dose: 40 mg Sennosides (Senokot Tab) 8.6 mg PO HS PRN PRN Reason: Constipation Tamsulosin HCl (Flomax) 0.4 mg PO DAILY [facility] Last Admin: 10/31/18 10:27 Dose: 0.4 mg - Labs Labs: 10/31/18 05:31 10/31/18 05:31 PT 28.2 Seconds (9.8-13.1) H 10/27/18 08:10 INR 2.5 10/27/18 08:10 APTT 30.8 Seconds (25.6-37.1) 10/27/18 08:10 Assessment and Plan - Assessment and Plan (Free Text) Plan: All medical record entries made by the resident were at my direction. I have reviewed the chart and agree that the record accurately reflects my personal performance of the history, physical exam, and medical decision making.
--- NOTE | 2018-10-29 16:51 | RAD ---
Date of service: 10/29/2018 HISTORY: distended abdomen COMPARISON: One TECHNIQUE: 1 view obtained. FINDINGS: BOWEL: Normal. No obstruction. No free air. BONES: Normal. OTHER FINDINGS: Vascular access catheter identified left common iliac. Cholecystotomy catheter identified right upper quadrant IMPRESSION: Unremarkable bowel gas pattern.
--- NOTE | 2018-10-29 18:58 | CP.CCUPN ---
CCU Subjective - Physician Review Subjective (Free Text): BP low 70's sytolic overnight. Started on Levofed 2.5mcg. 1L bolus this am and increased levophed with improved BP Pt seen and examined this morning. No acute complaints. Alert and oriented. Critical Care Time Spent (in minutes): 35 CCU Objective - Vital Signs / Intake & Output Vital Signs (Last 4 hours): Vital Signs Temp Pulse Resp BP Pulse Ox 10/29/18 09:55 21 102/55 L 97 10/29/18 08:00 98.1 F 86 25 H 72/46 L 97 Intake and Output (Last 8hrs): Intake & Output 10/28/18 10/29/18 10/29/18 22:59 06:59 14:59 Intake Total 421 718 9580 Output Total 600 350 60 Balance -538 298 4057 Weight 163 lb 3.2 oz Intake: IV 505 Intake, Piggyback 200 1500 Output: Drainage 100 60 Right Lower Abdomen 100 60 Urine 500 350 Urine, Voided 500 350 Other: # Voids Urine, Voided 1 2 - Physical Exam Head: Positive for: Atraumatic Pupils: Positive for: PERRL Mouth: Positive for: Moist Mucous Membranes Respiratory/Chest: Positive for: Clear to Auscultation Cardiovascular: Positive for: Regular Rate and Rhythm Abdomen: Positive for: Distention, Normal Bowel Sounds Lower Extremity: Negative for: Edema Neurological: Positive for: Speech Normal Skin: Positive for: Normal Color - Medications Active Medications: Active Medications Generic Name Dose Route Start Last Admin Trade Name Freq PRN Reason Stop Dose Admin Acetaminophen 650 mg 10/27/18 06:41 Tylenol 325mg Tab PO Q6H PRN Pain, moderate (4-7) Acetaminophen 650 mg 10/27/18 06:41 Tylenol 325mg Tab PO Q6H PRN Fever >100.4 F Albuterol Sulfate 2.5 mg 10/27/18 06:41 Albuterol 0.083% Inhal Mary (2.5 Mg/3 Ml) Ud IH RQ2 PRN Shortness of Breath Dextrose 0 ml 10/27/18 06:44 Dextrose 50% Inj IV STAT PRN Hypoglycemia Protocol Protocol Dextrose 0 gm 10/27/18 06:44 Glutose 15 PO ONCE PRN Hypoglycemia Protocol Protocol Gabapentin 300 mg 10/27/18 22:00 10/28/18 21:53 Neurontin PO 300 mg HS [facility] Administration Glucagon 0 mg 10/27/18 06:44 Glucagen Diagnostic Kit IM STAT PRN Hypoglycemia Protocol Protocol Guaifenesin/Dextromethorphan 10 ml 10/28/18 22:48 10/29/18 08:57 Robitussin Dm PO 11/02/18 22:47 10 ml TID PRN Administration Cough Heparin Sodium (Porcine) 5,000 units 10/26/18 21:00 10/26/18 21:11 Heparin SC Not Given Q12 [facility] Protocol Home Med 0.5 mg 10/27/18 09:00 Dutasteride [Avodart] PO DAILY [facility] Piperacillin Sod/Tazobactam 100 mls @ 100 mls/hr 10/26/18 22:00 10/29/18 09:47 Sod 2.25 gm/ Sodium Chloride IVPB 100 mls/hr Q6 [facility] Administration Protocol Norepinephrine Bitartrate 8 mg 258 mls @ 4.84 mls/hr 10/29/18 06:02 10/29/18 06:54 / Dextrose IV 10/30/18 06:01 5 mcg/min .Q24H ONE 9.68 mls/hr Titration Protocol 2.5 MCG/MIN Lactated Ringer's 1,000 mls @ 100 mls/hr 10/29/18 07:30 10/29/18 08:10 Lactated Ringer's IV 100 mls/hr .Q10H [facility] Administration Insulin Human Regular 0 units 10/27/18 07:30 10/29/18 06:58 Humulin R SC 2 units ACB [facility] Administration Protocol Insulin Human Regular 0 units 10/27/18 09:00 10/29/18 08:56 Humulin R SC 2 u Q8 [facility] Administration Protocol Morphine Sulfate 2 mg 10/27/18 06:41 10/29/18 04:55 Morphine IVP 2 mg Q4H PRN Administration Pain, severe (8-10) Ondansetron HCl 4 mg 10/27/18 06:41 Zofran Inj IVP Q6H PRN Nausea/Vomiting Pantoprazole Sodium 40 mg 10/27/18 09:00 10/29/18 08:12 Protonix Inj IVP 40 mg DAILY [facility] Administration Sennosides 8.6 mg 10/27/18 06:41 Senokot Tab PO HS PRN Constipation - Patient Studies Lab Studies: Microbiology Studies 10/27/18 11:26 Gram Stain - Final Bile Body Fluid Culture - Final Escherichia Coli 10/26/18 10:40 Blood Culture - Final Blood-Venous Escherichia Coli Gram Stain - Final 10/26/18 21:19 MRSA Culture (Admit) - Final Naris MRSA NOT DETECTED Lab Studies 10/29/18 10/29/18 10/29/18 Range/Units 06:56 04:10 04:10 WBC 13.6 H (4.8-10.8) K/uL RBC 4.14 L (4.40-5.90) Mil/uL Hgb 12.3 (12.0-18.0) g/dL Hct 37.0 (35.0-51.0) % MCV 89.4 (80.0-94.0) fl MCH 29.7 (27.0-31.0) pg MCHC 33.2 (33.0-37.0) g/dL RDW 14.7 H (11.5-14.5) % Plt Count 94 L (130-400) K/uL Sodium 136 (132-148) mmol/l Potassium 3.7 (3.6-5.0) MMOL/L Chloride 103 (98-107) mmol/L Carbon Dioxide 26 (22-30) mmol/L Anion Gap 11 (10-20) BUN 47 H (9-20) mg/dl Creatinine 1.9 H (0.8-1.5) mg/dl Est GFR ( Amer) 41 Est GFR (Non-Af Amer) 34 POC Glucose (mg/dL) 187 H (65-110) mg/dL Random Glucose 212 H (75-110) mg/dL Calcium 7.7 L (8.4-10.2) mg/dL 10/29/18 10/28/18 10/28/18 Range/Units 00:32 20:38 16:19 WBC (4.8-10.8) K/uL RBC (4.40-5.90) Mil/uL Hgb (12.0-18.0) g/dL Hct (35.0-51.0) % MCV (80.0-94.0) fl MCH (27.0-31.0) pg MCHC (33.0-37.0) g/dL RDW (11.5-14.5) % Plt Count (130-400) K/uL Sodium (132-148) mmol/l Potassium (3.6-5.0) MMOL/L Chloride (98-107) mmol/L Carbon Dioxide (22-30) mmol/L Anion Gap (10-20) BUN (9-20) mg/dl Creatinine (0.8-1.5) mg/dl Est GFR ( Amer) Est GFR (Non-Af Amer) POC Glucose (mg/dL) > 500 H* 257 H 282 H (65-110) mg/dL Random Glucose (75-110) mg/dL Calcium (8.4-10.2) mg/dL 10/28/18 Range/Units 11:06 WBC (4.8-10.8) K/uL RBC (4.40-5.90) Mil/uL Hgb (12.0-18.0) g/dL Hct (35.0-51.0) % MCV (80.0-94.0) fl MCH (27.0-31.0) pg MCHC (33.0-37.0) g/dL RDW (11.5-14.5) % Plt Count (130-400) K/uL Sodium (132-148) mmol/l Potassium (3.6-5.0) MMOL/L Chloride (98-107) mmol/L Carbon Dioxide (22-30) mmol/L Anion Gap (10-20) BUN (9-20) mg/dl Creatinine (0.8-1.5) mg/dl Est GFR ( Amer) Est GFR (Non-Af Amer) POC Glucose (mg/dL) 298 H (65-110) mg/dL Random Glucose (75-110) mg/dL Calcium (8.4-10.2) mg/dL Laboratory Results - last 24 hr 10/28/18 10/28/18 10/28/18 11:06 16:19 20:38 WBC RBC Hgb Hct MCV MCH MCHC RDW Plt Count Sodium Potassium Chloride Carbon Dioxide Anion Gap BUN Creatinine Est GFR ( Amer) Est GFR (Non-Af Amer) POC Glucose (mg/dL) 298 H 282 H 257 H Random Glucose Calcium 10/29/18 10/29/18 10/29/18 00:32 04:10 04:10 WBC 13.6 H RBC 4.14 L Hgb 12.3 Hct 37.0 MCV 89.4 MCH 29.7 MCHC 33.2 RDW 14.7 H Plt Count 94 L Sodium 136 Potassium 3.7 Chloride 103 Carbon Dioxide 26 Anion Gap 11 BUN 47 H Creatinine 1.9 H Est GFR ( Amer) 41 Est GFR (Non-Af Amer) 34 POC Glucose (mg/dL) > 500 H* Random Glucose 212 H Calcium 7.7 L 10/29/18 06:56 WBC RBC Hgb Hct MCV MCH MCHC RDW Plt Count Sodium Potassium Chloride Carbon Dioxide Anion Gap BUN Creatinine Est GFR ( Amer) Est GFR (Non-Af Amer) POC Glucose (mg/dL) 187 H Random Glucose Calcium Fingerstick Blood Sugar Results: 164 Critical Care Progress Note - Nutrition Nutrition: Nutrition Category Date Time Status Cardiac [Heart Healthy Diet] [DIET] Diets 10/29/18 Breakfast Active Assessment/Plan - Assessment and Plan (Free Text) Assessment: Pt is a 83 y/o male with hx of HTN, DM, BPH admitted for Sepsis 2/2 Cholangitis/ Alcalculus Cholecystitis s/p IR Perc Cholecystotomy on 10/27 and GNR Bacteremia, currently remains in ICU for BP support. #Sepsis w/ shock requiring pressor support - Cholecystitis w/ Bacteremia. Bcx Cx (10/26): E.Coli (pansensitive) - Afebrile, leukocytosis 13.6 (bands 12 on 10/26), Lactic acidosis on admission, will trend - Currently on Levophed ggt for BP support; wean as tolerated - C/W Zosyn - ID on board - Repeat Bcx tomorrow #Biliary obstruction - Transaminitis and T. Bili downward trend - Cholecystomy drain in place +20c bile overnight - GI and Surgery on board #SOO - Crea 1.9, BUN - No significant improvement - Likely Pre-renal in the setting of multiple factors including hypotension/sepsis/dehydration - IV fluids via fluid challenges as needed; monitor urine output - Nephrology consulted by primary team - Pt apparently has hx of CKD, this may be his baseline #Abdominal distention - Possibly Ileus - KUb ordered: notable for distended small bowel, no SBO apparent - Diet advanced #Thrombocytopenia - Will continue to monitor - If drops lower, will consider sending HIT workup #DM - ISS, Hypoglycemic protocl #PPX - Protonix daily - Heparin held in light of thrombocytopenia; SCD's for now Discussed with Dr. Anand who agrees with plan Joel Peralta PGY2
[2018-10-29 21:23] LABS: HEPATITIS B SURFACE AG Negative (NEGATIVE)
[2018-10-29 21:30] LABS: HEPATITIS A IGM NEGATIVE (NEGATIVE); HEPATITIS B CORE AB NEGATIVE (NEGATIVE)
[2018-10-29 21:41] LABS: HEPATITIS C ANTIBODY NEGATIVE (NEGATIVE)
[2018-10-30] MEDS: Insulin Regular 100 units/ml SC SCH ×4 (01:05→16:19)
[2018-10-30 05:31] LABS: ALBUMIN 2.4 g/dL (3.5-5.0); CALCIUM 7.6 mg/dL (8.4-10.2)
[2018-10-30 05:38] LABS: BASO % 0.2 % (0.0-2.0); EOS # 0.3 K/uL (0.0-0.7); HEMOGLOBIN 12.5 g/dL (12.0-18.0); LYMPH # 0.6 K/uL (1.0-4.3); LYMPH % 4.6 % (20.0-40.0); MEAN CORPUSCULAR HEMOGLOBIN 29.8 pg (27.0-31.0); MEAN CORPUSCULAR HGB CONC 33.8 g/dL (33.0-37.0); MEAN PLATELET VOLUME 12.4 fl (7.2-11.7); MONO # 1.1 K/uL (0.0-0.8); MONO % 7.7 % (0.0-10.0); NEUT # 12.2 K/uL (1.8-7.0); NEUT % 85.5 % (50.0-75.0); PLATELET COUNT 102 K/uL (130-400); RBC 4.21 Mil/uL (4.40-5.90); RED CELL DISTRIBUTION WIDTH 14.8 % (11.5-14.5); WHITE BLOOD COUNT 14.2 K/uL (4.8-10.8)
--- NOTE | 2018-10-30 07:56 | CP.CCUPN ---
CCU Subjective - Physician Review Events Since Last Encounter (Free Text): Patient awake, no distress, dairy husbandman fever, follow commands, no vomiting, events reviewed CCU Objective - Vital Signs / Intake & Output Vital Signs (Last 4 hours): Vital Signs Temp Pulse Resp BP Pulse Ox 10/30/18 07:45 98.5 F 92 H 26 H 124/76 100 10/30/18 06:00 93 H 30 H 118/76 98 10/30/18 05:00 93 H 26 H 123/78 100 10/30/18 04:00 94 H 30 H 118/70 97 Intake and Output (Last 8hrs): Intake & Output 10/29/18 10/30/18 10/30/18 22:59 06:59 14:59 Intake Total 100 120 Output Total 100 270 Balance 0 -150 Weight 161 lb 14.4 oz Intake: Intake, Piggyback 100 Oral 120 Output: Drainage 20 Right Lower Abdomen 20 Urine 100 250 Urine, Voided 100 250 Other: # Voids Urine, Voided 1 1 - Physical Exam Head: Positive for: Atraumatic Pupils: Positive for: PERRL Mouth: Positive for: Moist Mucous Membranes Nose (External): Positive for: Atraumatic Respiratory/Chest: Positive for: Clear to Auscultation Cardiovascular: Positive for: Regular Rate and Rhythm Abdomen: Positive for: Distention, Normal Bowel Sounds Upper Extremity: Positive for: Normal Inspection Lower Extremity: Negative for: Edema Neurological: Positive for: Speech Normal Skin: Positive for: Normal Color Psychiatric: Positive for: Alert - Medications Active Medications: Active Medications Generic Name Dose Route Start Last Admin Trade Name Freq PRN Reason Stop Dose Admin Acetaminophen 650 mg 10/27/18 06:41 Tylenol 325mg Tab PO Q6H PRN Pain, moderate (4-7) Acetaminophen 650 mg 10/27/18 06:41 Tylenol 325mg Tab PO Q6H PRN Fever >100.4 F Albuterol Sulfate 2.5 mg 10/27/18 06:41 Albuterol 0.083% Inhal Mary (2.5 Mg/3 Ml) Ud IH RQ2 PRN Shortness of Breath Dextrose 0 ml 10/27/18 06:44 Dextrose 50% Inj IV STAT PRN Hypoglycemia Protocol Protocol Dextrose 0 gm 10/27/18 06:44 Glutose 15 PO ONCE PRN Hypoglycemia Protocol Protocol Gabapentin 300 mg 10/27/18 22:00 10/29/18 21:34 Neurontin PO 300 mg HS NOVA Administration Glucagon 0 mg 10/27/18 06:44 Glucagen Diagnostic Kit IM STAT PRN Hypoglycemia Protocol Protocol Guaifenesin/Dextromethorphan 10 ml 10/28/18 22:48 10/29/18 13:01 Robitussin Dm PO 11/02/18 22:47 10 ml TID PRN Administration Cough Heparin Sodium (Porcine) 5,000 units 10/26/18 21:00 10/26/18 21:11 Heparin SC Not Given Q12 NOVA Protocol Piperacillin Sod/Tazobactam 100 mls @ 100 mls/hr 10/26/18 22:00 10/30/18 04:40 Sod 2.25 gm/ Sodium Chloride IVPB 100 mls/hr Q6 NOVA Administration Protocol Lactated Ringer's 1,000 mls @ 100 mls/hr 10/29/18 07:30 10/29/18 08:10 Lactated Ringer's IV 100 mls/hr .Q10H NOVA Administration Insulin Human Regular 0 units 10/27/18 07:30 10/30/18 06:39 Humulin R SC 4 units ACB NOVA Administration Protocol Insulin Human Regular 0 units 10/27/18 09:00 10/30/18 01:05 Humulin R SC Not Given Q8 [facility] Protocol Morphine Sulfate 2 mg 10/27/18 06:41 10/29/18 04:55 Morphine IVP 2 mg Q4H PRN Administration Pain, severe (8-10) Ondansetron HCl 4 mg 10/27/18 06:41 Zofran Inj IVP Q6H PRN Nausea/Vomiting Pantoprazole Sodium 40 mg 10/27/18 09:00 10/29/18 08:12 Protonix Inj IVP 40 mg DAILY NOVA Administration Sennosides 8.6 mg 10/27/18 06:41 Senokot Tab PO HS PRN Constipation Tamsulosin HCl 0.4 mg 10/29/18 11:30 10/29/18 13:00 Flomax PO 0.4 mg DAILY NOVA Administration - Patient Studies Lab Studies: Microbiology Studies 10/27/18 11:26 Gram Stain - Final Bile Body Fluid Culture - Final Escherichia Coli 10/26/18 10:40 Blood Culture - Final Blood-Venous Escherichia Coli Gram Stain - Final Lab Studies 10/30/18 10/30/18 10/30/18 Range/Units 06:08 04:08 04:08 WBC 14.2 H (4.8-10.8) K/uL RBC 4.21 L (4.40-5.90) Mil/uL Hgb 12.5 (12.0-18.0) g/dL Hct 37.0 (35.0-51.0) % MCV 88.0 (80.0-94.0) fl MCH 29.8 (27.0-31.0) pg MCHC 33.8 (33.0-37.0) g/dL RDW 14.8 H (11.5-14.5) % Plt Count 102 L (130-400) K/uL MPV 12.4 H (7.2-11.7) fl Neut % (Auto) 85.5 H (50.0-75.0) % Lymph % (Auto) 4.6 L (20.0-40.0) % [place] % (Auto) 7.7 (0.0-10.0) % Eos % (Auto) 2.0 (0.0-4.0) % Baso % (Auto) 0.2 (0.0-2.0) % Neut # (Auto) 12.2 H (1.8-7.0) K/uL Lymph # (Auto) 0.6 L (1.0-4.3) K/uL [place] # (Auto) 1.1 H (0.0-0.8) K/uL Eos # (Auto) 0.3 (0.0-0.7) K/uL Baso # (Auto) 0.0 (0.0-0.2) K/uL Sodium 134 (132-148) mmol/l Potassium 3.8 (3.6-5.0) MMOL/L Chloride 104 (98-107) mmol/L Carbon Dioxide 21 L (22-30) mmol/L Anion Gap 13 (10-20) BUN 41 H (9-20) mg/dl Creatinine 1.7 H (0.8-1.5) mg/dl Est GFR ( Amer) 47 Est GFR (Non-Af Amer) 39 POC Glucose (mg/dL) 299 H (65-110) mg/dL Random Glucose 223 H (75-110) mg/dL Calcium 7.6 L (8.4-10.2) mg/dL Phosphorus (2.5-4.5) mg/dl Total Bilirubin 6.2 H (0.2-1.3) mg/dl AST 21 (17-59) U/L ALT 45 (21-72) U/L Alkaline Phosphatase 139 H (38-126) U/L Total Protein 5.0 L (6.3-8.2) G/DL Albumin 2.4 L (3.5-5.0) g/dL Globulin 2.6 (2.2-3.9) gm/dL Albumin/Globulin Ratio 1.0 (1.0-2.1) Urine Osmolality (300-1000) mosm/kg Ur Random Creatinine mg/dL Ur Random Sodium mmol/L Hepatitis A IgM Ab (NEGATIVE) Hep Bs Antigen (NEGATIVE) Hep B Core IgM Ab (NEGATIVE) Hepatitis C Antibody (NEGATIVE) 10/30/18 10/29/18 10/29/18 Range/Units 00:57 16:28 15:50 WBC (4.8-10.8) K/uL RBC (4.40-5.90) Mil/uL Hgb (12.0-18.0) g/dL Hct (35.0-51.0) % MCV (80.0-94.0) fl MCH (27.0-31.0) pg MCHC (33.0-37.0) g/dL RDW (11.5-14.5) % Plt Count (130-400) K/uL MPV (7.2-11.7) fl Neut % (Auto) (50.0-75.0) % Lymph % (Auto) (20.0-40.0) % [place] % (Auto) (0.0-10.0) % Eos % (Auto) (0.0-4.0) % Baso % (Auto) (0.0-2.0) % Neut # (Auto) (1.8-7.0) K/uL Lymph # (Auto) (1.0-4.3) K/uL [place] # (Auto) (0.0-0.8) K/uL Eos # (Auto) (0.0-0.7) K/uL Baso # (Auto) (0.0-0.2) K/uL Sodium (132-148) mmol/l Potassium (3.6-5.0) MMOL/L Chloride (98-107) mmol/L Carbon Dioxide (22-30) mmol/L Anion Gap (10-20) BUN (9-20) mg/dl Creatinine (0.8-1.5) mg/dl Est GFR ( Amer) Est GFR (Non-Af Amer) POC Glucose (mg/dL) 241 H 216 H (65-110) mg/dL Random Glucose (75-110) mg/dL Calcium (8.4-10.2) mg/dL Phosphorus (2.5-4.5) mg/dl Total Bilirubin (0.2-1.3) mg/dl AST (17-59) U/L ALT (21-72) U/L Alkaline Phosphatase (38-126) U/L Total Protein (6.3-8.2) G/DL Albumin (3.5-5.0) g/dL Globulin (2.2-3.9) gm/dL Albumin/Globulin Ratio (1.0-2.1) Urine Osmolality (300-1000) mosm/kg Ur Random Creatinine mg/dL Ur Random Sodium mmol/L Hepatitis A IgM Ab Negative (NEGATIVE) Hep Bs Antigen Negative (NEGATIVE) Hep B Core IgM Ab Negative (NEGATIVE) Hepatitis C Antibody Negative (NEGATIVE) 10/29/18 10/29/18 10/29/18 Range/Units 13:44 13:44 12:14 WBC (4.8-10.8) K/uL RBC (4.40-5.90) Mil/uL Hgb (12.0-18.0) g/dL Hct (35.0-51.0) % MCV (80.0-94.0) fl MCH (27.0-31.0) pg MCHC (33.0-37.0) g/dL RDW (11.5-14.5) % Plt Count (130-400) K/uL MPV (7.2-11.7) fl Neut % (Auto) (50.0-75.0) % Lymph % (Auto) (20.0-40.0) % [place] % (Auto) (0.0-10.0) % Eos % (Auto) (0.0-4.0) % Baso % (Auto) (0.0-2.0) % Neut # (Auto) (1.8-7.0) K/uL Lymph # (Auto) (1.0-4.3) K/uL [place] # (Auto) (0.0-0.8) K/uL Eos # (Auto) (0.0-0.7) K/uL Baso # (Auto) (0.0-0.2) K/uL Sodium (132-148) mmol/l Potassium (3.6-5.0) MMOL/L Chloride (98-107) mmol/L Carbon Dioxide (22-30) mmol/L Anion Gap (10-20) BUN (9-20) mg/dl Creatinine (0.8-1.5) mg/dl Est GFR ( Amer) Est GFR (Non-Af Amer) POC Glucose (mg/dL) 143 H (65-110) mg/dL Random Glucose (75-110) mg/dL Calcium (8.4-10.2) mg/dL Phosphorus 1.8 L (2.5-4.5) mg/dl Total Bilirubin (0.2-1.3) mg/dl AST (17-59) U/L ALT (21-72) U/L Alkaline Phosphatase (38-126) U/L Total Protein (6.3-8.2) G/DL Albumin (3.5-5.0) g/dL Globulin (2.2-3.9) gm/dL Albumin/Globulin Ratio (1.0-2.1) Urine Osmolality 634 (300-1000) mosm/kg Ur Random Creatinine 123.1 mg/dL Ur Random Sodium 35 mmol/L Hepatitis A IgM Ab (NEGATIVE) Hep Bs Antigen (NEGATIVE) Hep B Core IgM Ab (NEGATIVE) Hepatitis C Antibody (NEGATIVE) 10/29/18 10/29/18 Range/Units 08:54 02:03 WBC (4.8-10.8) K/uL RBC (4.40-5.90) Mil/uL Hgb (12.0-18.0) g/dL Hct (35.0-51.0) % MCV (80.0-94.0) fl MCH (27.0-31.0) pg MCHC (33.0-37.0) g/dL RDW (11.5-14.5) % Plt Count (130-400) K/uL MPV (7.2-11.7) fl Neut % (Auto) (50.0-75.0) % Lymph % (Auto) (20.0-40.0) % [place] % (Auto) (0.0-10.0) % Eos % (Auto) (0.0-4.0) % Baso % (Auto) (0.0-2.0) % Neut # (Auto) (1.8-7.0) K/uL Lymph # (Auto) (1.0-4.3) K/uL [place] # (Auto) (0.0-0.8) K/uL Eos # (Auto) (0.0-0.7) K/uL Baso # (Auto) (0.0-0.2) K/uL Sodium (132-148) mmol/l Potassium (3.6-5.0) MMOL/L Chloride (98-107) mmol/L Carbon Dioxide (22-30) mmol/L Anion Gap (10-20) BUN (9-20) mg/dl Creatinine (0.8-1.5) mg/dl Est GFR ( Amer) Est GFR (Non-Af Amer) POC Glucose (mg/dL) 164 H 254 H (65-110) mg/dL Random Glucose (75-110) mg/dL Calcium (8.4-10.2) mg/dL Phosphorus (2.5-4.5) mg/dl Total Bilirubin (0.2-1.3) mg/dl AST (17-59) U/L ALT (21-72) U/L Alkaline Phosphatase (38-126) U/L Total Protein (6.3-8.2) G/DL Albumin (3.5-5.0) g/dL Globulin (2.2-3.9) gm/dL Albumin/Globulin Ratio (1.0-2.1) Urine Osmolality (300-1000) mosm/kg Ur Random Creatinine mg/dL Ur Random Sodium mmol/L Hepatitis A IgM Ab (NEGATIVE) Hep Bs Antigen (NEGATIVE) Hep B Core IgM Ab (NEGATIVE) Hepatitis C Antibody (NEGATIVE) Laboratory Results - last 24 hr 10/29/18 10/29/18 10/29/18 02:03 08:54 12:14 WBC RBC Hgb Hct MCV MCH MCHC RDW Plt Count MPV Neut % (Auto) Lymph % (Auto) [place] % (Auto) Eos % (Auto) Baso % (Auto) Neut # (Auto) Lymph # (Auto) [place] # (Auto) Eos # (Auto) Baso # (Auto) Sodium Potassium Chloride Carbon Dioxide Anion Gap BUN Creatinine Est GFR ( Amer) Est GFR (Non-Af Amer) POC Glucose (mg/dL) 254 H 164 H 143 H Random Glucose Calcium Phosphorus Total Bilirubin AST ALT Alkaline Phosphatase Total Protein Albumin Globulin Albumin/Globulin Ratio Urine Osmolality Ur Random Creatinine Ur Random Sodium Hepatitis A IgM Ab Hep Bs Antigen Hep B Core IgM Ab Hepatitis C Antibody 10/29/18 10/29/18 10/29/18 13:44 13:44 15:50 WBC RBC Hgb Hct MCV MCH MCHC RDW Plt Count MPV Neut % (Auto) Lymph % (Auto) [place] % (Auto) Eos % (Auto) Baso % (Auto) Neut # (Auto) Lymph # (Auto) [place] # (Auto) Eos # (Auto) Baso # (Auto) Sodium Potassium Chloride Carbon Dioxide Anion Gap BUN Creatinine Est GFR ( Amer) Est GFR (Non-Af Amer) POC Glucose (mg/dL) Random Glucose Calcium Phosphorus 1.8 L Total Bilirubin AST ALT Alkaline Phosphatase Total Protein Albumin Globulin Albumin/Globulin Ratio Urine Osmolality 634 Ur Random Creatinine 123.1 Ur Random Sodium 35 Hepatitis A IgM Ab Negative Hep Bs Antigen Negative Hep B Core IgM Ab Negative Hepatitis C Antibody Negative 10/29/18 10/30/18 10/30/18 16:28 00:57 04:08 WBC RBC Hgb Hct MCV MCH MCHC RDW Plt Count MPV Neut % (Auto) Lymph % (Auto) [place] % (Auto) Eos % (Auto) Baso % (Auto) Neut # (Auto) Lymph # (Auto) [place] # (Auto) Eos # (Auto) Baso # (Auto) Sodium 134 Potassium 3.8 Chloride 104 Carbon Dioxide 21 L Anion Gap 13 BUN 41 H Creatinine 1.7 H Est GFR ( Amer) 47 Est GFR (Non-Af Amer) 39 POC Glucose (mg/dL) 216 H 241 H Random Glucose 223 H Calcium 7.6 L Phosphorus Total Bilirubin 6.2 H AST 21 ALT 45 Alkaline Phosphatase 139 H Total Protein 5.0 L Albumin 2.4 L Globulin 2.6 Albumin/Globulin Ratio 1.0 Urine Osmolality Ur Random Creatinine Ur Random Sodium Hepatitis A IgM Ab Hep Bs Antigen Hep B Core IgM Ab Hepatitis C Antibody 10/30/18 10/30/18 04:08 06:08 WBC 14.2 H RBC 4.21 L Hgb 12.5 Hct 37.0 MCV 88.0 MCH 29.8 MCHC 33.8 RDW 14.8 H Plt Count 102 L MPV 12.4 H Neut % (Auto) 85.5 H Lymph % (Auto) 4.6 L [place] % (Auto) 7.7 Eos % (Auto) 2.0 Baso % (Auto) 0.2 Neut # (Auto) 12.2 H Lymph # (Auto) 0.6 L [place] # (Auto) 1.1 H Eos # (Auto) 0.3 Baso # (Auto) 0.0 Sodium Potassium Chloride Carbon Dioxide Anion Gap BUN Creatinine Est GFR ( Amer) Est GFR (Non-Af Amer) POC Glucose (mg/dL) 299 H Random Glucose Calcium Phosphorus Total Bilirubin AST ALT Alkaline Phosphatase Total Protein Albumin Globulin Albumin/Globulin Ratio Urine Osmolality Ur Random Creatinine Ur Random Sodium Hepatitis A IgM Ab Hep Bs Antigen Hep B Core IgM Ab Hepatitis C Antibody Radiology Impressions: Radiology Impressions Abdomen X-Ray 10/29/18 09:45 IMPRESSION: Unremarkable bowel gas pattern. Chest X-Ray 10/29/18 09:45 IMPRESSION: Interval improvement with respect aeration of the lungs. No evidence of pulmonary vascular congestion/CHF. Fingerstick Blood Sugar Results: 299 Critical Care Progress Note - Nutrition Nutrition: Nutrition Category Date Time Status Cardiac [Heart Healthy Diet] [DIET] Diets 10/29/18 Breakfast Active Assessment/Plan - Assessment and Plan (Free Text) Assessment: A/P Cholangitis/Acalculus cholecystitis s/p IR perc cholecystostomy, sepsis, DM, BPH, SOO, thrombocytopenia - Continue meds - Pressors as needed - Surgery follow up - DVT prophylaxis - Pulmonary toilets
[2018-10-30 08:53] LABS: ANISOCYTOSIS SLIGHT; BANDS 3 % (0-2); EOSINOPHIL 1 % (0-7); LARGE PLATELETS PRESENT; LYMPHOCYTE 5 % (20-50); MONOCYTE 7 % (0-10); NEUTROPHIL 84 % (42-75); OVALOCYTES SLIGHT; PLATELET ESTIMATE SLIGHTLY DECREASED (NORMAL); TOTAL CELLS COUNTED 100
--- NOTE | 2018-10-30 10:47 | CP.PCM.PN ---
Subjective - Date & Time of Evaluation Date of Evaluation: 10/30/18 Time of Evaluation: 10:43 - Subjective Subjective: Nephrology Consultation Note Assessment: critical Acute Kidney Injury (N17.9) likely due to ATN/pre-renal state/sepsis [FeNa <1%] Diabetic chronic Kidney Disease (E11.22) Hypertensive Chronic Kidney Disease (I12.9) Chronic Kidney Disease (N18.3) Stage 3 with baseline cr 1.3 E coli sepsis with acute cholecystitis lactic acidosis Plan No acute need for renal replacement therapy at this time. renal function stable Hypertension control with meds as ordered. Maintain hemodynamics stable. Avoid hypotension. Patient not on ACEI/ARB due to recent SOO Monitor Input/Output, daily weights and renal function with basic metabolic panel continue with IVF surgery following Dose meds/antibiotics for reduced GFR. Avoid fleets enema/magnesium based laxatives. Avoid nephrotoxins/NSAIDs/ iodinated contrast (unless needed emergently) Glycemic control Further work up for as per primary team Thanks for allowing me to participate in care of your patient. Will follow patient with you. Please call if any Qs Dr Bryant Velez Office: [phone] Subjective: Noted events overnight. Patients feels okay. Denies chest pain, palpitation, shortness of breath, leg swelling. All other negative except c/o pain at RUQ Physical Examination: General Appearance: Comfortable, in no acute respiratory distress, co-operative . Vitals reviewed and noted as below Head; Atraumatic, normocephalic ENT: no ulcers no thrush. Tongue is midline. Oropharynx: no rash or ulcers. EYES: Pupils are equal, round and reactive to light accommodation. Eye muscles and extraocular movement intact. Sclera is icteric. Neck; supple no lymphadenopathy, no thyromegaly or bruit Lungs: Normal respiratory rate/effort. Breath sounds bilateral equal and few rales + Heart: Normal rate. s1s2 normal. No rub or gallop. Extremities: no edema. No varicose veins Neurological: Patient is alert, awake and oriented to person, place and time. No focal deficit. Strength bilateral appropriate and equal Skin: Warm and dry. Normal turgor. No rash. Palpitation: Normal elasticity for age Abdomen: Abdomen is soft but distended. Bowel sounds +. There is RUQ abdominal tenderness, no guarding/rigidity no organomegaly. has cholecystotomy tube Psych: normal insight and normal affect/mood MSK: no joint tenderness or swelling. Digits and nails normal, no deformity : kidney or bladder not palpable Labs/imaging reviewed. Past medical history, past surgical history, family history, social history, allergy reviewed and noted as below Family hx: no hx of CKD. Rest non-contributory Objective - Vital Signs/Intake and Output Vital Signs (last 24 hours): Temp Pulse Resp BP Pulse Ox 98.5 F 81 81 H 72/50 L 98 10/30/18 07:45 10/30/18 10:00 10/30/18 10:00 10/30/18 10:00 10/30/18 10:00 Intake and Output: 10/30/18 10/30/18 06:59 18:59 Intake Total 120 205 Output Total 370 Balance -250 205 - Medications Medications: Current Medications Acetaminophen (Tylenol 325mg Tab) 650 mg PO Q6H PRN PRN Reason: Pain, moderate (4-7) Acetaminophen (Tylenol 325mg Tab) 650 mg PO Q6H PRN PRN Reason: Fever >100.4 F Albuterol Sulfate (Albuterol 0.083% Inhal Mary (2.5 Mg/3 Ml) Ud) 2.5 mg IH RQ2 PRN PRN Reason: Shortness of Breath Dextrose (Dextrose 50% Inj) 0 ml IV STAT PRN; Protocol PRN Reason: Hypoglycemia Protocol Dextrose (Glutose 15) 0 gm PO ONCE PRN; Protocol PRN Reason: Hypoglycemia Protocol Gabapentin (Neurontin) 300 mg PO HS NOVA Last Admin: 10/29/18 21:34 Dose: 300 mg Glucagon (Glucagen Diagnostic Kit) 0 mg IM STAT PRN; Protocol PRN Reason: Hypoglycemia Protocol Guaifenesin/Dextromethorphan (Robitussin Dm) 10 ml PO TID PRN PRN Reason: Cough Stop: 11/02/18 22:47 Last Admin: 10/29/18 13:01 Dose: 10 ml Heparin Sodium (Porcine) (Heparin) 5,000 units SC Q12 NOVA; Protocol Last Admin: 10/26/18 21:11 Dose: Not Given Piperacillin Sod/Tazobactam (Sod 2.25 gm/ Sodium Chloride) 100 mls @ 100 mls/hr IVPB Q6 NOVA; Protocol Last Admin: 10/30/18 09:52 Dose: 100 mls/hr Lactated Ringer's (Lactated Ringer's) 1,000 mls @ 100 mls/hr IV .Q10H [facility] Last Admin: 10/29/18 08:10 Dose: 100 mls/hr Insulin Human Regular (Humulin R) 0 units SC ACB [facility]; Protocol Last Admin: 10/30/18 06:39 Dose: 4 units Insulin Human Regular (Humulin R) 0 units SC Q8 NOVA; Protocol Last Admin: 10/30/18 08:30 Dose: 4 u Morphine Sulfate (Morphine) 2 mg IVP Q4H PRN PRN Reason: Pain, severe (8-10) Last Admin: 10/29/18 04:55 Dose: 2 mg Ondansetron HCl (Zofran Inj) 4 mg IVP Q6H PRN PRN Reason: Nausea/Vomiting Pantoprazole Sodium (Protonix Inj) 40 mg IVP DAILY [facility] Last Admin: 10/30/18 08:25 Dose: 40 mg Sennosides (Senokot Tab) 8.6 mg PO HS PRN PRN Reason: Constipation Tamsulosin HCl (Flomax) 0.4 mg PO DAILY [facility] Last Admin: 10/30/18 08:25 Dose: 0.4 mg - Labs Labs: 10/30/18 04:08 10/30/18 04:08 PT 28.2 Seconds (9.8-13.1) H 10/27/18 08:10 INR 2.5 10/27/18 08:10 APTT 30.8 Seconds (25.6-37.1) 10/27/18 08:10
--- NOTE | 2018-10-30 21:21 | CP.PCM.PN ---
<Taco Ansari - Last Filed: 10/31/18 06:54> Subjective - Date & Time of Evaluation Date of Evaluation: 10/30/18 Time of Evaluation: 11:00 - Subjective Subjective: Surgery Progress Note for Dr. Marquez Patient seen and evaluated at bedside. No acute events overnight. His pain is controlled. Patient still on 2.5 mcg of levophed. Denies f/c, n/v/d, SOB, CP, or urinary symptoms. Objective - Vital Signs/Intake and Output Vital Signs (last 24 hours): Temp Pulse Resp BP Pulse Ox 98.5 F 97 H 23 91/61 L 100 10/30/18 16:00 10/30/18 18:00 10/30/18 17:00 10/30/18 18:00 10/30/18 17:00 Intake and Output: 10/30/18 10/31/18 18:59 06:59 Intake Total 555 Output Total 750 Balance -195 - Medications Medications: Current Medications Acetaminophen (Tylenol 325mg Tab) 650 mg PO Q6H PRN PRN Reason: Pain, moderate (4-7) Acetaminophen (Tylenol 325mg Tab) 650 mg PO Q6H PRN PRN Reason: Fever >100.4 F Albuterol Sulfate (Albuterol 0.083% Inhal Mary (2.5 Mg/3 Ml) Ud) 2.5 mg IH RQ2 PRN PRN Reason: Shortness of Breath Dextrose (Dextrose 50% Inj) 0 ml IV STAT PRN; Protocol PRN Reason: Hypoglycemia Protocol Dextrose (Glutose 15) 0 gm PO ONCE PRN; Protocol PRN Reason: Hypoglycemia Protocol Gabapentin (Neurontin) 300 mg PO HS [facility] Last Admin: 10/29/18 21:34 Dose: 300 mg Glucagon (Glucagen Diagnostic Kit) 0 mg IM STAT PRN; Protocol PRN Reason: Hypoglycemia Protocol Guaifenesin/Dextromethorphan (Robitussin Dm) 10 ml PO TID PRN PRN Reason: Cough Stop: 11/02/18 22:47 Last Admin: 10/29/18 13:01 Dose: 10 ml Heparin Sodium (Porcine) (Heparin) 5,000 units SC Q12 [facility]; Protocol Last Admin: 10/26/18 21:11 Dose: Not Given Piperacillin Sod/Tazobactam (Sod 2.25 gm/ Sodium Chloride) 100 mls @ 100 mls/hr IVPB Q6 [facility]; Protocol Last Admin: 10/30/18 16:11 Dose: 100 mls/hr Lactated Ringer's (Lactated Ringer's) 1,000 mls @ 100 mls/hr IV .Q10H [facility] Last Admin: 10/29/18 08:10 Dose: 100 mls/hr Insulin Human Regular (Humulin R) 0 units SC ACB [facility]; Protocol Last Admin: 10/30/18 06:39 Dose: 4 units Insulin Human Regular (Humulin R) 0 units SC Q8 [facility]; Protocol Last Admin: 10/30/18 16:19 Dose: 10 u Morphine Sulfate (Morphine) 2 mg IVP Q4H PRN PRN Reason: Pain, severe (8-10) Last Admin: 10/30/18 16:31 Dose: 2 mg Ondansetron HCl (Zofran Inj) 4 mg IVP Q6H PRN PRN Reason: Nausea/Vomiting Pantoprazole Sodium (Protonix Inj) 40 mg IVP DAILY [facility] Last Admin: 10/30/18 08:25 Dose: 40 mg Sennosides (Senokot Tab) 8.6 mg PO HS PRN PRN Reason: Constipation Tamsulosin HCl (Flomax) 0.4 mg PO DAILY [facility] Last Admin: 10/30/18 08:25 Dose: 0.4 mg - Labs Labs: 10/30/18 04:08 10/30/18 04:08 PT 28.2 Seconds (9.8-13.1) H 10/27/18 08:10 INR 2.5 10/27/18 08:10 APTT 30.8 Seconds (25.6-37.1) 10/27/18 08:10 - Additional Findings Additional findings: - Constitutional Appears: Well - Head Exam Head Exam: ATRAUMATIC, NORMAL INSPECTION, NORMOCEPHALIC - Eye Exam Eye Exam: EOMI - ENT Exam ENT Exam: Mucous Membranes Dry - Respiratory Exam Respiratory Exam: NORMAL BREATHING PATTERN. absent: Wheezes, Respiratory Distress - Cardiovascular Exam Cardiovascular Exam: REGULAR RHYTHM - GI/Abdominal Exam GI & Abdominal Exam: Soft, Tenderness, Normal Bowel Sounds. absent: Distended - Neurological Exam Neurological Exam: Alert, Awake Assessment and Plan - Assessment and Plan (Free Text) Assessment: 83M s/p joshua tube POD#3 for cholecystitis with hyperbillirubinemia Plan: Trend WBC Wean levophed Monitor liver enzymes FU hepatitis panel Repeat CT abd/pelvis in AM f/u GI recommendations Medical management as per ICU Discussed with Dr. Barker PGY2 <Ruben Campbell N - Last Filed: 10/31/18 12:19> Objective - Vital Signs/Intake and Output Vital Signs (last 24 hours): Temp Pulse Resp BP Pulse Ox 98.2 F 101 H 22 100/66 100 10/31/18 08:00 10/31/18 11:00 10/31/18 11:00 10/31/18 11:00 10/31/18 11:00 Intake and Output: 10/31/18 10/31/18 06:59 18:59 Intake Total 204 310 Output Total 800 150 Balance -596 160 - Medications Medications: Current Medications Acetaminophen (Tylenol 325mg Tab) 650 mg PO Q6H PRN PRN Reason: Pain, moderate (4-7) Acetaminophen (Tylenol 325mg Tab) 650 mg PO Q6H PRN PRN Reason: Fever >100.4 F Albuterol Sulfate (Albuterol 0.083% Inhal Mary (2.5 Mg/3 Ml) Ud) 2.5 mg IH RQ2 PRN PRN Reason: Shortness of Breath Dextrose (Dextrose 50% Inj) 0 ml IV STAT PRN; Protocol PRN Reason: Hypoglycemia Protocol Dextrose (Glutose 15) 0 gm PO ONCE PRN; Protocol PRN Reason: Hypoglycemia Protocol Gabapentin (Neurontin) 300 mg PO HS [facility] Last Admin: 10/30/18 21:50 Dose: 300 mg Glucagon (Glucagen Diagnostic Kit) 0 mg IM STAT PRN; Protocol PRN Reason: Hypoglycemia Protocol Guaifenesin/Dextromethorphan (Robitussin Dm) 10 ml PO TID PRN PRN Reason: Cough Stop: 11/02/18 22:47 Last Admin: 10/29/18 13:01 Dose: 10 ml Heparin Sodium (Porcine) (Heparin) 5,000 units SC Q12 [facility]; Protocol Last Admin: 10/26/18 21:11 Dose: Not Given Piperacillin Sod/Tazobactam (Sod 2.25 gm/ Sodium Chloride) 100 mls @ 100 mls/hr IVPB Q6 [facility]; Protocol Last Admin: 10/31/18 09:00 Dose: 100 mls/hr Lactated Ringer's (Lactated Ringer's) 1,000 mls @ 100 mls/hr IV .Q10H [facility] Last Admin: 10/29/18 08:10 Dose: 100 mls/hr Norepinephrine Bitartrate 16 (mg/ Dextrose) 266 mls @ 2.49 mls/hr IV .Q24H ONE Stop: 10/31/18 21:55 Last Admin: 10/31/18 00:38 Dose: 2.49 mls/hr Insulin Human Lispro (Humalog) 0 units SC Q6H [facility]; Protocol Morphine Sulfate (Morphine) 2 mg IVP Q4H PRN PRN Reason: Pain, severe (8-10) Last Admin: 10/31/18 01:00 Dose: 2 mg Ondansetron HCl (Zofran Inj) 4 mg IVP Q6H PRN PRN Reason: Nausea/Vomiting Pantoprazole Sodium (Protonix Inj) 40 mg IVP DAILY [facility] Last Admin: 10/31/18 10:27 Dose: 40 mg Sennosides (Senokot Tab) 8.6 mg PO HS PRN PRN Reason: Constipation Tamsulosin HCl (Flomax) 0.4 mg PO DAILY [facility] Last Admin: 10/31/18 10:27 Dose: 0.4 mg - Labs Labs: 10/31/18 05:31 10/31/18 05:31 PT 28.2 Seconds (9.8-13.1) H 10/27/18 08:10 INR 2.5 10/27/18 08:10 APTT 30.8 Seconds (25.6-37.1) 10/27/18 08:10 Assessment and Plan - Assessment and Plan (Free Text) Assessment: All medical record entries made by the resident were at my direction. I have reviewed the chart and agree that the record accurately reflects my personal performance of the history, physical exam, and medical decision making.
[2018-10-31] MEDS: Insulin Regular 100 units/ml SC SCH ×3 (00:58→07:13)
[2018-10-31 06:43] LABS: HEMOGLOBIN 12.7 g/dL (12.0-18.0); MEAN CELL VOLUME 88.4 fl (80.0-94.0); MEAN CORPUSCULAR HEMOGLOBIN 29.3 pg (27.0-31.0); MEAN CORPUSCULAR HGB CONC 33.2 g/dL (33.0-37.0); RBC 4.32 Mil/uL (4.40-5.90); RED CELL DISTRIBUTION WIDTH 14.9 % (11.5-14.5); WHITE BLOOD COUNT 15.9 K/uL (4.8-10.8)
--- NOTE | 2018-10-31 06:54 | CP.PCM.PN ---
<Taco Ansari - Last Filed: 10/31/18 06:57> Subjective - Date & Time of Evaluation Date of Evaluation: 10/31/18 Time of Evaluation: 06:57 - Subjective Subjective: Surgery Note for Dr. Marquez Patient seen and evaluated at bedside. No acute events overnight. Patient still on 2.5 mcg of levophed. He has no complaints. He is tolerating diet. Objective - Vital Signs/Intake and Output Vital Signs (last 24 hours): Temp Pulse Resp BP Pulse Ox 98.4 F 99 H 21 108/75 100 10/31/18 00:00 10/31/18 03:00 10/31/18 03:00 10/31/18 03:00 10/31/18 03:00 Intake and Output: 10/30/18 10/31/18 18:59 06:59 Intake Total 555 104 Output Total 750 300 Balance -195 -196 - Medications Medications: Current Medications Acetaminophen (Tylenol 325mg Tab) 650 mg PO Q6H PRN PRN Reason: Pain, moderate (4-7) Acetaminophen (Tylenol 325mg Tab) 650 mg PO Q6H PRN PRN Reason: Fever >100.4 F Albuterol Sulfate (Albuterol 0.083% Inhal Mary (2.5 Mg/3 Ml) Ud) 2.5 mg IH RQ2 PRN PRN Reason: Shortness of Breath Dextrose (Dextrose 50% Inj) 0 ml IV STAT PRN; Protocol PRN Reason: Hypoglycemia Protocol Dextrose (Glutose 15) 0 gm PO ONCE PRN; Protocol PRN Reason: Hypoglycemia Protocol Gabapentin (Neurontin) 300 mg PO HS [facility] Last Admin: 10/30/18 21:50 Dose: 300 mg Glucagon (Glucagen Diagnostic Kit) 0 mg IM STAT PRN; Protocol PRN Reason: Hypoglycemia Protocol Guaifenesin/Dextromethorphan (Robitussin Dm) 10 ml PO TID PRN PRN Reason: Cough Stop: 11/02/18 22:47 Last Admin: 10/29/18 13:01 Dose: 10 ml Heparin Sodium (Porcine) (Heparin) 5,000 units SC Q12 [facility]; Protocol Last Admin: 10/26/18 21:11 Dose: Not Given Piperacillin Sod/Tazobactam (Sod 2.25 gm/ Sodium Chloride) 100 mls @ 100 mls/hr IVPB Q6 [facility]; Protocol Last Admin: 10/31/18 03:31 Dose: 100 mls/hr Lactated Ringer's (Lactated Ringer's) 1,000 mls @ 100 mls/hr IV .Q10H [facility] Last Admin: 10/29/18 08:10 Dose: 100 mls/hr Norepinephrine Bitartrate 16 (mg/ Dextrose) 266 mls @ 2.49 mls/hr IV .Q24H ONE Stop: 10/31/18 21:55 Last Admin: 10/31/18 00:38 Dose: 2.49 mls/hr Insulin Human Regular (Humulin R) 0 units SC ACB [facility]; Protocol Last Admin: 10/30/18 06:39 Dose: 4 units Insulin Human Regular (Humulin R) 0 units SC Q8 [facility]; Protocol Last Admin: 10/31/18 00:58 Dose: Not Given Morphine Sulfate (Morphine) 2 mg IVP Q4H PRN PRN Reason: Pain, severe (8-10) Last Admin: 10/31/18 01:00 Dose: 2 mg Ondansetron HCl (Zofran Inj) 4 mg IVP Q6H PRN PRN Reason: Nausea/Vomiting Pantoprazole Sodium (Protonix Inj) 40 mg IVP DAILY [facility] Last Admin: 10/30/18 08:25 Dose: 40 mg Sennosides (Senokot Tab) 8.6 mg PO HS PRN PRN Reason: Constipation Tamsulosin HCl (Flomax) 0.4 mg PO DAILY [facility] Last Admin: 10/30/18 08:25 Dose: 0.4 mg - Labs Labs: 10/30/18 04:08 10/30/18 04:08 PT 28.2 Seconds (9.8-13.1) H 10/27/18 08:10 INR 2.5 10/27/18 08:10 APTT 30.8 Seconds (25.6-37.1) 10/27/18 08:10 - Additional Findings Additional findings: - Constitutional Appears: No acute distress, Non-toxic - Head Exam Head Exam: ATRAUMATIC, NORMAL INSPECTION, NORMOCEPHALIC - Eye Exam Eye Exam: EOMI - ENT Exam ENT Exam: Mucous Membranes Dry - Respiratory Exam Respiratory Exam: NORMAL BREATHING PATTERN. absent: Wheezes, Respiratory Dist ress - Cardiovascular Exam Cardiovascular Exam: REGULAR RHYTHM - GI/Abdominal Exam GI & Abdominal Exam: Soft, Normal Bowel Sounds. absent: Distended, Tenderness - Neurological Exam Neurological Exam: Alert, Awake Assessment and Plan - Assessment and Plan (Free Text) Assessment: 83M s/p joshua tube POD#4 for cholecystitis with hyperbillirubinemia Plan: Trend WBC Wean levophed Monitor liver enzymes FU hepatitis panel f/u CT abd/pelvis today f/u GI recommendations Medical management as per ICU Discussed with Dr. Barker PGY2 <Ruben Campbell N - Last Filed: 10/31/18 12:19> Objective - Vital Signs/Intake and Output Vital Signs (last 24 hours): Temp Pulse Resp BP Pulse Ox 98.2 F 101 H 22 100/66 100 10/31/18 08:00 10/31/18 11:00 10/31/18 11:00 10/31/18 11:00 10/31/18 11:00 Intake and Output: 10/31/18 10/31/18 06:59 18:59 Intake Total 204 310 Output Total 800 150 Balance -596 160 - Medications Medications: Current Medications Acetaminophen (Tylenol 325mg Tab) 650 mg PO Q6H PRN PRN Reason: Pain, moderate (4-7) Acetaminophen (Tylenol 325mg Tab) 650 mg PO Q6H PRN PRN Reason: Fever >100.4 F Albuterol Sulfate (Albuterol 0.083% Inhal Mary (2.5 Mg/3 Ml) Ud) 2.5 mg IH RQ2 PRN PRN Reason: Shortness of Breath Dextrose (Dextrose 50% Inj) 0 ml IV STAT PRN; Protocol PRN Reason: Hypoglycemia Protocol Dextrose (Glutose 15) 0 gm PO ONCE PRN; Protocol PRN Reason: Hypoglycemia Protocol Gabapentin (Neurontin) 300 mg PO HS NOVA Last Admin: 10/30/18 21:50 Dose: 300 mg Glucagon (Glucagen Diagnostic Kit) 0 mg IM STAT PRN; Protocol PRN Reason: Hypoglycemia Protocol Guaifenesin/Dextromethorphan (Robitussin Dm) 10 ml PO TID PRN PRN Reason: Cough Stop: 11/02/18 22:47 Last Admin: 10/29/18 13:01 Dose: 10 ml Heparin Sodium (Porcine) (Heparin) 5,000 units SC Q12 [facility]; Protocol Last Admin: 10/26/18 21:11 Dose: Not Given Piperacillin Sod/Tazobactam (Sod 2.25 gm/ Sodium Chloride) 100 mls @ 100 mls/hr IVPB Q6 [facility]; Protocol Last Admin: 10/31/18 09:00 Dose: 100 mls/hr Lactated Ringer's (Lactated Ringer's) 1,000 mls @ 100 mls/hr IV .Q10H [facility] Last Admin: 10/29/18 08:10 Dose: 100 mls/hr Norepinephrine Bitartrate 16 (mg/ Dextrose) 266 mls @ 2.49 mls/hr IV .Q24H ONE Stop: 10/31/18 21:55 Last Admin: 10/31/18 00:38 Dose: 2.49 mls/hr Insulin Human Lispro (Humalog) 0 units SC Q6H [facility]; Protocol Morphine Sulfate (Morphine) 2 mg IVP Q4H PRN PRN Reason: Pain, severe (8-10) Last Admin: 10/31/18 01:00 Dose: 2 mg Ondansetron HCl (Zofran Inj) 4 mg IVP Q6H PRN PRN Reason: Nausea/Vomiting Pantoprazole Sodium (Protonix Inj) 40 mg IVP DAILY [facility] Last Admin: 10/31/18 10:27 Dose: 40 mg Sennosides (Senokot Tab) 8.6 mg PO HS PRN PRN Reason: Constipation Tamsulosin HCl (Flomax) 0.4 mg PO DAILY [facility] Last Admin: 10/31/18 10:27 Dose: 0.4 mg - Labs Labs: 10/31/18 05:31 10/31/18 05:31 PT 28.2 Seconds (9.8-13.1) H 10/27/18 08:10 INR 2.5 10/27/18 08:10 APTT 30.8 Seconds (25.6-37.1) 10/27/18 08:10 Assessment and Plan - Assessment and Plan (Free Text) Assessment: All medical record entries made by the resident were at my direction. I have reviewed the chart and agree that the record accurately reflects my personal performance of the history, physical exam, and medical decision making.
[2018-10-31 07:13] LABS: ALB/GLOB RATIO 0.9 (1.0-2.1); ALBUMIN 2.3 g/dL (3.5-5.0); CALCIUM 7.5 mg/dL (8.4-10.2)
--- NOTE | 2018-10-31 07:27 | PN ---
DATE: 10/31/2018 SUBJECTIVE: The patient seen and examined. Interim events noted. Consults noted appreciated. Surgery followup and limb driver intervention noted and appreciated. The patient remains in the intensive care unit, awake and responsive. Complains of substernal pain but much better than before. No specific issue reported by nursing staff. PHYSICAL EXAMINATION: GENERAL: The patient is in no acute distress. VITAL SIGNS: Stable. HEART: S1, S2 normal, regular. LUNGS: Good bilateral air exchange. ABDOMEN: Soft. The patient has right upper quadrant tenderness. No sign of acute abdomen. No guarding. No rigidity. No rebound. Bowel sounds are present and normal. EXTREMITIES: No calf swelling. No tenderness. No acute ischemia. CENTRAL NERVOUS SYSTEM: Essentially unchanged. Cholecystostomy tube is draining well. LABORATORY DATA: Blood culture, initial ones were positive but recent ones negative. ASSESSMENT AND PLAN: Overall, the patient feels very improved. The patient remains in the ICU. Plan as ordered. Other diagnostic data reviewed. residential monitor does note reveal significant arrhythmias. Vicente Jacobo MD
--- NOTE | 2018-10-31 11:58 | CP.PCM.PN ---
Subjective - Date & Time of Evaluation Date of Evaluation: 10/31/18 Time of Evaluation: 11:57 - Subjective Subjective: Nephrology Consultation Note Assessment: critical Acute Kidney Injury (N17.9) likely due to ATN/pre-renal state/sepsis [FeNa <1%] Diabetic chronic Kidney Disease (E11.22) Hypertensive Chronic Kidney Disease (I12.9) Chronic Kidney Disease (N18.3) Stage 3 with baseline cr 1.3 E coli sepsis with acute cholecystitis lactic acidosis Plan No acute need for renal replacement therapy at this time. renal function stable Hypertension control with meds as ordered. Maintain hemodynamics stable. Avoid hypotension. Patient not on ACEI/ARB due to recent SOO Monitor Input/Output, daily weights and renal function with basic metabolic pa jewels can continue with IVF surgery following Dose meds/antibiotics for reduced GFR. Avoid nephrotoxins/NSAIDs/ iodinated contrast (unless needed emergently) Glycemic control Further work up for as per primary team Thanks for allowing me to participate in care of your patient. Will follow patient with you. Please call if any Qs. had d/w team Dr Bryant Velez Office: [phone] Subjective: Noted events overnight. Patients feels okay. Denies chest pain, palpitation, shortness of breath, leg swelling. All other negative except c/o pain at RUQ on low dose levophed. planned for repeat CT abdomen Physical Examination: General Appearance: Comfortable, in no acute respiratory distress, co-operative . Vitals reviewed and noted as below Head; Atraumatic, normocephalic ENT: no ulcers no thrush. Tongue is midline. Oropharynx: no rash or ulcers. EYES: Pupils are equal, round and reactive to light accommodation. Eye muscles and extraocular movement intact. Sclera is icteric. Neck; supple no lymphadenopathy, no thyromegaly or bruit Lungs: Normal respiratory rate/effort. Breath sounds bilateral equal and clearer Heart: Normal rate. s1s2 normal. No rub or gallop. Extremities: no edema. No varicose veins Neurological: Patient is alert, awake and oriented to person, place and time. No focal deficit. Strength bilateral appropriate and equal Skin: Warm and dry. Normal turgor. No rash. Palpitation: Normal elasticity for age Abdomen: Abdomen is soft but distended. Bowel sounds +. There is RUQ abdominal tenderness, no guarding/rigidity no organomegaly. has cholecystotomy tube Psych: normal insight and normal affect/mood MSK: no joint tenderness or swelling. Digits and nails normal, no deformity : kidney or bladder not palpable Labs/imaging reviewed. Past medical history, past surgical history, family history, social history, allergy reviewed and noted as below Family hx: no hx of CKD. Rest non-contributory Objective - Vital Signs/Intake and Output Vital Signs (last 24 hours): Temp Pulse Resp BP Pulse Ox 98.2 F 101 H 22 100/66 100 10/31/18 08:00 10/31/18 11:00 10/31/18 11:00 10/31/18 11:00 10/31/18 11:00 Intake and Output: 10/31/18 10/31/18 06:59 18:59 Intake Total 204 310 Output Total 800 150 Balance -596 160 - Medications Medications: Current Medications Acetaminophen (Tylenol 325mg Tab) 650 mg PO Q6H PRN PRN Reason: Pain, moderate (4-7) Acetaminophen (Tylenol 325mg Tab) 650 mg PO Q6H PRN PRN Reason: Fever >100.4 F Albuterol Sulfate (Albuterol 0.083% Inhal Mary (2.5 Mg/3 Ml) Ud) 2.5 mg IH RQ2 PRN PRN Reason: Shortness of Breath Dextrose (Dextrose 50% Inj) 0 ml IV STAT PRN; Protocol PRN Reason: Hypoglycemia Protocol Dextrose (Glutose 15) 0 gm PO ONCE PRN; Protocol PRN Reason: Hypoglycemia Protocol Gabapentin (Neurontin) 300 mg PO HS [facility] Last Admin: 10/30/18 21:50 Dose: 300 mg Glucagon (Glucagen Diagnostic Kit) 0 mg IM STAT PRN; Protocol PRN Reason: Hypoglycemia Protocol Guaifenesin/Dextromethorphan (Robitussin Dm) 10 ml PO TID PRN PRN Reason: Cough Stop: 11/02/18 22:47 Last Admin: 10/29/18 13:01 Dose: 10 ml Heparin Sodium (Porcine) (Heparin) 5,000 units SC Q12 [facility]; Protocol Last Admin: 10/26/18 21:11 Dose: Not Given Piperacillin Sod/Tazobactam (Sod 2.25 gm/ Sodium Chloride) 100 mls @ 100 mls/hr IVPB Q6 [facility]; Protocol Last Admin: 10/31/18 09:00 Dose: 100 mls/hr Lactated Ringer's (Lactated Ringer's) 1,000 mls @ 100 mls/hr IV .Q10H [facility] Last Admin: 10/29/18 08:10 Dose: 100 mls/hr Norepinephrine Bitartrate 16 (mg/ Dextrose) 266 mls @ 2.49 mls/hr IV .Q24H ONE Stop: 10/31/18 21:55 Last Admin: 10/31/18 00:38 Dose: 2.49 mls/hr Insulin Human Lispro (Humalog) 0 units SC Q6H [facility]; Protocol Morphine Sulfate (Morphine) 2 mg IVP Q4H PRN PRN Reason: Pain, severe (8-10) Last Admin: 10/31/18 01:00 Dose: 2 mg Ondansetron HCl (Zofran Inj) 4 mg IVP Q6H PRN PRN Reason: Nausea/Vomiting Pantoprazole Sodium (Protonix Inj) 40 mg IVP DAILY [facility] Last Admin: 10/31/18 10:27 Dose: 40 mg Sennosides (Senokot Tab) 8.6 mg PO HS PRN PRN Reason: Constipation Tamsulosin HCl (Flomax) 0.4 mg PO DAILY [facility] Last Admin: 10/31/18 10:27 Dose: 0.4 mg - Labs Labs: 10/31/18 05:31 10/31/18 05:31 PT 28.2 Seconds (9.8-13.1) H 10/27/18 08:10 INR 2.5 10/27/18 08:10 APTT 30.8 Seconds (25.6-37.1) 10/27/18 08:10
--- NOTE | 2018-10-31 13:09 | CT ---
Date of service: 10/31/2018 PROCEDURE: CT Abdomen and Pelvis without intravenous contrast HISTORY: hyperbilirubinemia, s/p joshua tube COMPARISON: 10/26/2018 TECHNIQUE: Without contrast.. Contrast dose: 0 Radiation dose: Total exam DLP = 807.14 mGy-cm. This CT exam was performed using one or more of the following dose reduction techniques: Automated exposure control, adjustment of the mA and/or kV according to patient size, and/or use of iterative reconstruction technique. FINDINGS: LOWER THORAX: Small bilateral pleural effusion. Bilateral lower lobe compressive atelectasis. LIVER: Unremarkable. No gross lesion or ductal dilatation. GALLBLADDER AND BILE DUCTS: Status post percutaneous cholecystostomy. Cholecystostomy catheter appreciated within the gallbladder. Small amount of air is seen within the gallbladder lumen. There is thickening of the gallbladder wall. There is mild pericholecystic stranding. No calcified stones are appreciated. PANCREAS: Unremarkable. No gross lesion or ductal dilatation. SPLEEN: Unremarkable. ADRENALS: Unremarkable. No mass. KIDNEYS AND URETERS: Right lower pole renal cortical cyst, 4.0 cm. This measures 11 Hounsfield units in attenuation. No renal calculus or hydronephrosis. VASCULATURE: Unremarkable. No aortic aneurysm. There is atherosclerotic calcification of the abdominal aorta. BOWEL: Unremarkable. No obstruction. No gross mural thickening. APPENDIX: Unremarkable. Normal appendix. PERITONEUM: There is very mild ascites. This represents interval change from the prior examination. Nonspecific. LYMPH NODES: Unremarkable. No enlarged lymph nodes. BLADDER: Poorly distended REPRODUCTIVE: Normal prostate BONES: No acute fracture. OTHER FINDINGS: None. IMPRESSION: Status post percutaneous cholecystostomy. Mild thickening of gallbladder wall and pericholecystic stranding. Mild ascites new since prior examination. Small amount of air within gallbladder lumen, consistent with recent percutaneous procedure. Small bilateral pleural effusion and bilateral lower lobe compressive atelectasis. Minor findings as above.
[2018-10-31] MEDS: Insulin Lispro (humaLOG) 100 Units/ml Inj SC SCH ×3 (13:17→23:27)
--- NOTE | 2018-10-31 14:13 | CP.CCUPN ---
CCU Subjective - Physician Review Events Since Last Encounter (Free Text): 10/31/18 14:10 alert and no complaints. CCU Objective - Vital Signs / Intake & Output Vital Signs (Last 4 hours): Vital Signs Temp Pulse Resp BP Pulse Ox 10/31/18 13:00 97 H 23 110/68 97 10/31/18 12:55 99.4 F 99 H 26 H 112/70 99 10/31/18 11:00 101 H 22 100/66 100 Intake and Output (Last 8hrs): Intake & Output 10/30/18 10/31/18 10/31/18 22:59 06:59 14:59 Intake Total 250 104 555 Output Total 550 700 350 Balance -300 -596 205 Weight 163 lb Intake: IV 4 15 Intake, Piggyback 100 100 100 Oral 150 440 Output: Drainage 50 100 Right Lower Abdomen 50 100 Urine 500 600 350 Urine, Voided 500 600 350 Other: # Voids Urine, Voided 1 - Physical Exam Head: Positive for: Atraumatic Pupils: Positive for: PERRL Mouth: Positive for: Moist Mucous Membranes Nose (External): Positive for: Atraumatic Respiratory/Chest: Positive for: Clear to Auscultation Cardiovascular: Positive for: Regular Rate and Rhythm Abdomen: Positive for: Distention (mild), Normal Bowel Sounds. Negative for: Tenderness Upper Extremity: Positive for: Normal Inspection Lower Extremity: Negative for: Edema Neurological: Positive for: Speech Normal Skin: Positive for: Normal Color Psychiatric: Positive for: Alert - Medications Active Medications: Active Medications Generic Name Dose Route Start Last Admin Trade Name Freq PRN Reason Stop Dose Admin Acetaminophen 650 mg 10/27/18 06:41 Tylenol 325mg Tab PO Q6H PRN Pain, moderate (4-7) Acetaminophen 650 mg 10/27/18 06:41 Tylenol 325mg Tab PO Q6H PRN Fever >100.4 F Albuterol Sulfate 2.5 mg 10/27/18 06:41 Albuterol 0.083% Inhal Mary (2.5 Mg/3 Ml) Ud IH RQ2 PRN Shortness of Breath Dextrose 0 ml 10/27/18 06:44 Dextrose 50% Inj IV STAT PRN Hypoglycemia Protocol Protocol Dextrose 0 gm 10/27/18 06:44 Glutose 15 PO ONCE PRN Hypoglycemia Protocol Protocol Gabapentin 300 mg 10/27/18 22:00 10/30/18 21:50 Neurontin PO 300 mg HS NOVA Administration Glucagon 0 mg 10/27/18 06:44 Glucagen Diagnostic Kit IM STAT PRN Hypoglycemia Protocol Protocol Guaifenesin/Dextromethorphan 10 ml 10/28/18 22:48 10/29/18 13:01 Robitussin Dm PO 11/02/18 22:47 10 ml TID PRN Administration Cough Heparin Sodium (Porcine) 5,000 units 10/26/18 21:00 10/26/18 21:11 Heparin SC Not Given Q12 NOVA Protocol Piperacillin Sod/Tazobactam 100 mls @ 100 mls/hr 10/26/18 22:00 10/31/18 09:00 Sod 2.25 gm/ Sodium Chloride IVPB 100 mls/hr Q6 N[facility] Administration Protocol Lactated Ringer's 1,000 mls @ 100 mls/hr 10/29/18 07:30 10/29/18 08:10 Lactated Ringer's IV 100 mls/hr .Q10H [facility] Administration Norepinephrine Bitartrate 16 266 mls @ 2.49 mls/hr 10/30/18 21:56 10/31/18 00:38 mg/ Dextrose IV 10/31/18 21:55 2.49 mls/hr .Q24H ONE Administration 2.5 MCG/MIN Insulin Human Lispro 0 units 10/31/18 12:00 10/31/18 13:17 Humalog SC 8 unit Q6H N[facility] Administration Protocol Morphine Sulfate 2 mg 10/27/18 06:41 10/31/18 01:00 Morphine IVP 2 mg Q4H PRN Administration Pain, severe (8-10) Ondansetron HCl 4 mg 10/27/18 06:41 Zofran Inj IVP Q6H PRN Nausea/Vomiting Pantoprazole Sodium 40 mg 10/27/18 09:00 10/31/18 10:27 Protonix Inj IVP 40 mg DAILY [facility] Administration Sennosides 8.6 mg 10/27/18 06:41 Senokot Tab PO HS PRN Constipation Tamsulosin HCl 0.4 mg 10/29/18 11:30 10/31/18 10:27 Flomax PO 0.4 mg DAILY NOVA Administration - Patient Studies Lab Studies: Microbiology Studies 10/30/18 04:30 Blood Culture - Preliminary Blood NO GROWTH AFTER 24 HOURS 10/30/18 04:20 Blood Culture - Preliminary Blood NO GROWTH AFTER 24 HOURS Lab Studies 10/31/18 10/31/18 10/31/18 Range/Units 06:17 05:31 05:31 WBC 15.9 H (4.8-10.8) K/uL RBC 4.32 L (4.40-5.90) Mil/uL Hgb 12.7 (12.0-18.0) g/dL Hct 38.2 (35.0-51.0) % MCV 88.4 (80.0-94.0) fl MCH 29.3 (27.0-31.0) pg MCHC 33.2 (33.0-37.0) g/dL RDW 14.9 H (11.5-14.5) % Plt Count 128 L D (130-400) K/uL Sodium 135 (132-148) mmol/l Potassium 3.7 (3.6-5.0) MMOL/L Chloride 102 (98-107) mmol/L Carbon Dioxide 24 (22-30) mmol/L Anion Gap 13 (10-20) BUN 34 H (9-20) mg/dl Creatinine 1.5 (0.8-1.5) mg/dl Est GFR ( Amer) 54 Est GFR (Non-Af Amer) 45 POC Glucose (mg/dL) 312 H (65-110) mg/dL Random Glucose 246 H (75-110) mg/dL Calcium 7.5 L (8.4-10.2) mg/dL Phosphorus 2.4 L (2.5-4.5) mg/dl Magnesium 1.9 (1.6-2.3) MG/DL Total Bilirubin 5.4 H (0.2-1.3) mg/dl AST 37 (17-59) U/L ALT 34 (21-72) U/L Alkaline Phosphatase 208 H D (38-126) U/L Total Protein 5.0 L (6.3-8.2) G/DL Albumin 2.3 L (3.5-5.0) g/dL Globulin 2.6 (2.2-3.9) gm/dL Albumin/Globulin Ratio 0.9 L (1.0-2.1) 10/31/18 10/30/18 10/30/18 Range/Units 00:42 16:18 08:29 WBC (4.8-10.8) K/uL RBC (4.40-5.90) Mil/uL Hgb (12.0-18.0) g/dL Hct (35.0-51.0) % MCV (80.0-94.0) fl MCH (27.0-31.0) pg MCHC (33.0-37.0) g/dL RDW (11.5-14.5) % Plt Count (130-400) K/uL Sodium (132-148) mmol/l Potassium (3.6-5.0) MMOL/L Chloride (98-107) mmol/L Carbon Dioxide (22-30) mmol/L Anion Gap (10-20) BUN (9-20) mg/dl Creatinine (0.8-1.5) mg/dl Est GFR ( Amer) Est GFR (Non-Af Amer) POC Glucose (mg/dL) 226 H 403 H* 292 H (65-110) mg/dL Random Glucose (75-110) mg/dL Calcium (8.4-10.2) mg/dL Phosphorus (2.5-4.5) mg/dl Magnesium (1.6-2.3) MG/DL Total Bilirubin (0.2-1.3) mg/dl AST (17-59) U/L ALT (21-72) U/L Alkaline Phosphatase (38-126) U/L Total Protein (6.3-8.2) G/DL Albumin (3.5-5.0) g/dL Globulin (2.2-3.9) gm/dL Albumin/Globulin Ratio (1.0-2.1) Laboratory Results - last 24 hr 10/30/18 10/30/18 10/31/18 08:29 16:18 00:42 WBC RBC Hgb Hct MCV MCH MCHC RDW Plt Count Sodium Potassium Chloride Carbon Dioxide Anion Gap BUN Creatinine Est GFR ( Amer) Est GFR (Non-Af Amer) POC Glucose (mg/dL) 292 H 403 H* 226 H Random Glucose Calcium Phosphorus Magnesium Total Bilirubin AST ALT Alkaline Phosphatase Total Protein Albumin Globulin Albumin/Globulin Ratio 10/31/18 10/31/18 10/31/18 05:31 05:31 06:17 WBC 15.9 H RBC 4.32 L Hgb 12.7 Hct 38.2 MCV 88.4 MCH 29.3 MCHC 33.2 RDW 14.9 H Plt Count 128 L D Sodium 135 Potassium 3.7 Chloride 102 Carbon Dioxide 24 Anion Gap 13 BUN 34 H Creatinine 1.5 Est GFR ( Amer) 54 Est GFR (Non-Af Amer) 45 POC Glucose (mg/dL) 312 H Random Glucose 246 H Calcium 7.5 L Phosphorus 2.4 L Magnesium 1.9 Total Bilirubin 5.4 H AST 37 ALT 34 Alkaline Phosphatase 208 H D Total Protein 5.0 L Albumin 2.3 L Globulin 2.6 Albumin/Globulin Ratio 0.9 L Radiology Impressions: Radiology Impressions Abdomen/Pelvis CT 10/31/18 07:48 IMPRESSION: Status post percutaneous cholecystostomy. Mild thickening of gallbladder wall and pericholecystic stranding. Mild ascites new since prior examination. Small amount of air within gallbladder lumen, consistent with recent percutaneous procedure. Small bilateral pleural effusion and bilateral lower lobe compressive atelectasis. Minor findings as above. Fingerstick Blood Sugar Results: 320 Review of Systems - Review of Systems All systems: reviewed and no additional remarkable complaints except (no complaints) Critical Care Progress Note - Nutrition Nutrition: Nutrition Category Date Time Status Cardiac [Heart Healthy Diet] [DIET] Diets 10/29/18 Breakfast Active Assessment/Plan (1) Cholecystitis Assessment and plan: 83yo M. PMHx HTN, DM type 2, BPH. admitted for gram negative sepsis secondary to ascending cholangitis with acalcuolous cholecystitis. s/p IR perc cholecystostomy (10/27). Neuro: alert and oriented x 3 Pulm: no acute issues, breathing spontaneously on room air CV: septic shock on low dose levophed, titrating down. Hem: thrombocytopenia improving. Renal: SOO on CKD, improving. LR@75 Endo: dm type 2, on SISS for coverage, increasing coverage for worsening hyperglycemia. GI: heart healthy diet. Cholecystostomy draining. Patient may need further evaluation of biliary tree via ID: gram negative sepsis from acalculous cholecystitis, switching to Meropenem. ID - Dr. Mcintyre DVT proph - heparin sq GI proph - protonix Code status - full code Critical Care time spent 35 minutes Multi-disciplinary rounds were performed with house staff, nursing, speech therapy, respiratory therapy, pharmacy and nutrition with integrated input from the primary team/attending and other consulting services. The documented time is cumulative and includes review of patient data/exams/labs/chart review and examination of the patient on rounds and throughout the day; time is exclusive of any procedures or teaching time. Current Visit: Yes Status: Acute Priority: High
[2018-10-31] MEDS: Lactated Ringer's 1,000 ML IV SCH (16:28)
[2018-10-31] MEDS: Meropenem 1 GM in Sodium Chloride 0.9% 100 ML IVPB SCH (16:29)
[2018-11-01] MEDS: Meropenem 1 GM in Sodium Chloride 0.9% 100 ML IVPB SCH ×2 (05:00→15:50)
[2018-11-01 05:35] LABS: MEAN CELL VOLUME 87.7 fl (80.0-94.0); MEAN CORPUSCULAR HEMOGLOBIN 29.4 pg (27.0-31.0); MEAN CORPUSCULAR HGB CONC 33.5 g/dL (33.0-37.0); RBC 4.08 Mil/uL (4.40-5.90); RED CELL DISTRIBUTION WIDTH 15.2 % (11.5-14.5)
[2018-11-01 05:48] LABS: ALB/GLOB RATIO 0.9 (1.0-2.1); ALBUMIN 2.3 g/dL (3.5-5.0); CALCIUM 7.5 mg/dL (8.4-10.2)
[2018-11-01] MEDS: Insulin Lispro (humaLOG) 100 Units/ml Inj SC SCH ×4 (05:52→23:22)
--- NOTE | 2018-11-01 07:26 | CP.PCM.PN ---
<Erlin Velez - Last Filed: 11/01/18 07:24> Subjective - Date & Time of Evaluation Date of Evaluation: 11/01/18 Time of Evaluation: 07:26 - Subjective Subjective: Surgery Progress Note for Dr. Marquez 83M seen and evaluated at bedside this morning. No acute events overnight. No complaints this morning. Patient having BM, no nausea/vomiting. No abdominal pain. Levo at 2.3. Denies f/c, diarrhea, SOB, CP, or urinary symptoms. Objective - Vital Signs/Intake and Output Vital Signs (last 24 hours): Temp Pulse Resp BP Pulse Ox 98.6 F 84 29 H 90/55 L 96 11/01/18 04:00 11/01/18 06:59 11/01/18 06:59 11/01/18 06:59 11/01/18 06:59 Intake and Output: 11/01/18 11/01/18 06:59 18:59 Intake Total 975 Output Total 350 Balance 625 - Medications Medications: Current Medications Acetaminophen (Tylenol 325mg Tab) 650 mg PO Q6H PRN PRN Reason: Pain, moderate (4-7) Acetaminophen (Tylenol 325mg Tab) 650 mg PO Q6H PRN PRN Reason: Fever >100.4 F Albuterol Sulfate (Albuterol 0.083% Inhal Mary (2.5 Mg/3 Ml) Ud) 2.5 mg IH RQ2 PRN PRN Reason: Shortness of Breath Dextrose (Dextrose 50% Inj) 0 ml IV STAT PRN; Protocol PRN Reason: Hypoglycemia Protocol Dextrose (Glutose 15) 0 gm PO ONCE PRN; Protocol PRN Reason: Hypoglycemia Protocol Gabapentin (Neurontin) 300 mg PO HS NOVA Last Admin: 10/31/18 22:33 Dose: 300 mg Glucagon (Glucagen Diagnostic Kit) 0 mg IM STAT PRN; Protocol PRN Reason: Hypoglycemia Protocol Guaifenesin/Dextromethorphan (Robitussin Dm) 10 ml PO TID PRN PRN Reason: Cough Stop: 11/02/18 22:47 Last Admin: 10/29/18 13:01 Dose: 10 ml Heparin Sodium (Porcine) (Heparin) 5,000 units SC Q12 [facility]; Protocol Last Admin: 10/26/18 21:11 Dose: Not Given Meropenem 1 gm/ Sodium (Chloride) 100 mls @ 100 mls/hr IVPB Q12H [facility]; Protocol Last Admin: 11/01/18 05:00 Dose: 100 mls/hr Lactated Ringer's (Lactated Ringer's) 1,000 mls @ 75 mls/hr IV .[id number] [facility] Last Admin: 10/31/18 16:28 Dose: 75 mls/hr Insulin Human Lispro (Humalog) 0 units SC Q6H [facility]; Protocol Last Admin: 11/01/18 05:52 Dose: 2 unit Morphine Sulfate (Morphine) 2 mg IVP Q4H PRN PRN Reason: Pain, severe (8-10) Last Admin: 10/31/18 01:00 Dose: 2 mg Ondansetron HCl (Zofran Inj) 4 mg IVP Q6H PRN PRN Reason: Nausea/Vomiting Pantoprazole Sodium (Protonix Inj) 40 mg IVP DAILY [facility] Last Admin: 10/31/18 10:27 Dose: 40 mg Sennosides (Senokot Tab) 8.6 mg PO HS PRN PRN Reason: Constipation Tamsulosin HCl (Flomax) 0.4 mg PO DAILY [facility] Last Admin: 10/31/18 10:27 Dose: 0.4 mg - Labs Labs: 11/01/18 04:25 11/01/18 04:25 PT 28.2 Seconds (9.8-13.1) H 10/27/18 08:10 INR 2.5 10/27/18 08:10 APTT 30.8 Seconds (25.6-37.1) 10/27/18 08:10 - Constitutional Appears: Well, Non-toxic, No Acute Distress - Head Exam Head Exam: ATRAUMATIC, NORMAL INSPECTION, NORMOCEPHALIC - Eye Exam Eye Exam: EOMI - ENT Exam ENT Exam: Mucous Membranes Moist - Respiratory Exam Respiratory Exam: NORMAL BREATHING PATTERN. absent: Wheezes, Respiratory Distress - GI/Abdominal Exam GI & Abdominal Exam: Soft, Normal Bowel Sounds. absent: Distended, Guarding, Tenderness, Rebound Additional comments: joshua tube - 50cc bilious output over 12 hours - Neurological Exam Neurological Exam: Alert, Awake, Oriented x3 - Psychiatric Exam Psychiatric exam: Normal Affect, Normal Mood - Skin Skin Exam: Dry, Intact, Normal Color, Warm Assessment and Plan - Assessment and Plan (Free Text) Assessment: 83M s/p joshua tube for cholecystitis POD5 with hyperbilirubinemia, downtrending Plan: CTAP shows joshua tube with mild gallbladder wall thickening/edema, mild ascites Trend WBC Wean levophed Monitor liver enzymes Hepatitis panel negative FU GI recommendations Medical management as per ICU Further recommendations per Dr. Roberson PGY1 <Ruben Campbell - Last Filed: 11/07/18 04:07> Objective - Vital Signs/Intake and Output Vital Signs (last 24 hours): Temp Pulse Resp BP Pulse Ox 98.8 F 81 18 124/79 98 11/07/18 00:40 11/07/18 00:40 11/07/18 00:40 11/07/18 00:40 11/07/18 00:40 Intake and Output: 11/06/18 11/07/18 18:59 06:59 Intake Total 1050 Output Total 650 Balance 400 - Medications Medications: Current Medications Acetaminophen (Tylenol 325mg Tab) 650 mg PO Q6H PRN PRN Reason: Pain, moderate (4-7) Acetaminophen (Tylenol 325mg Tab) 650 mg PO Q6H PRN PRN Reason: Fever >100.4 F Albuterol Sulfate (Albuterol 0.083% Inhal Mary (2.5 Mg/3 Ml) Ud) 2.5 mg IH RQ2 PRN PRN Reason: Shortness of Breath Last Admin: 11/04/18 05:54 Dose: 2.5 mg Dextrose (Dextrose 50% Inj) 0 ml IV STAT PRN; Protocol PRN Reason: Hypoglycemia Protocol Dextrose (Glutose 15) 0 gm PO ONCE PRN; Protocol PRN Reason: Hypoglycemia Protocol Gabapentin (Neurontin) 300 mg PO HS NOVA Last Admin: 11/06/18 22:02 Dose: 300 mg Glucagon (Glucagen Diagnostic Kit) 0 mg IM STAT PRN; Protocol PRN Reason: Hypoglycemia Protocol Guaifenesin/Dextromethorphan (Mucinex-Dm 600-30 Mg) 1 tab PO BID NOVA Last Admin: 11/06/18 16:40 Dose: 1 tab Heparin Sodium (Porcine) (Heparin) 5,000 units SC Q12 [facility]; Protocol Last Admin: 11/06/18 21:23 Dose: 5,000 units Meropenem 1 gm/ Sodium (Chloride) 100 mls @ 100 mls/hr IVPB Q12H [facility]; Protocol Last Admin: 11/06/18 16:38 Dose: 100 mls/hr Insulin Detemir (Levemir) 8 units SC HS [facility] Insulin Human Lispro (Humalog) 0 units SC Q6H [facility]; Protocol Last Admin: 11/06/18 23:01 Dose: Not Given Ondansetron HCl (Zofran Inj) 4 mg IVP Q6H PRN PRN Reason: Nausea/Vomiting Pantoprazole Sodium (Protonix Inj) 40 mg IVP DAILY [facility] Last Admin: 11/06/18 09:39 Dose: 40 mg Sennosides (Senokot Tab) 8.6 mg PO HS [facility] Last Admin: 11/06/18 22:02 Dose: 8.6 mg Tamsulosin HCl (Flomax) 0.4 mg PO DAILY [facility] Last Admin: 11/06/18 09:38 Dose: 0.4 mg - Labs Labs: 11/06/18 04:39 11/06/18 04:39 PT 28.2 Seconds (9.8-13.1) H 10/27/18 08:10 INR 2.5 10/27/18 08:10 APTT 30.8 Seconds (25.6-37.1) 10/27/18 08:10 Assessment and Plan - Assessment and Plan (Free Text) Plan: All medical record entries made by the resident were at my direction. I have reviewed the chart and agree that the record accurately reflects my personal performance of the history, physical exam, and medical decision making
--- NOTE | 2018-11-01 08:59 | PN ---
DATE: 10/30/2018 SUBJECTIVE: The patient is seen and examined. Interim events noted. Consults noted and appreciated. Surgery, stave block roller's intervention noted and appreciated. The patient remains in Intensive care unit. She remains on vasopressor for blood pressure support. Has become hypertensive without it. The patient denies any specific complaint other then hypertension. No specific issue reported by nursing staff. The patient is awake and responsive in intensive care unit. Denies any specific complaint. PHYSICAL EXAMINATION: GENERAL: The patient today is in intensive care unit, in no acute distress. VITAL SIGNS: Stable with vasopressor support. Blood pressure is maintained. HEART: S1, S2, normal and regular. LUNGS: Good bilateral air exchange. ABDOMEN: Still distended. Soft. Minimal tenderness on deep palpation. No sign of acute peritonitis. No guarding. No rigidity. No rebound. Bowel sounds are present. EXTREMITIES: No edema. No calf swelling. No tenderness. No acute ischemia. CENTRAL NERVOUS SYSTEM: Essentially unchanged. DIAGNOSTIC DATA: Available diagnostic data reviewed. Telemetry monitoring does not show significant arrhythmias. ASSESSMENT AND PLAN: Overall, the patient's medical condition is still critically sick. The patient does require vasopressor support. Plan as ordered. Case and plan discussed with the patient. Vicente Jacobo MD
[2018-11-01] MEDS: Lactated Ringer's 1,000 ML IV SCH ×2 (09:01→23:18)
[2018-11-01] MEDS ORDERED: Potassium Chloride 20 mEq ER Tab PO ONE (09:30)
--- NOTE | 2018-11-01 09:41 | CP.PCM.PN ---
Subjective - Date & Time of Evaluation Date of Evaluation: 11/01/18 Time of Evaluation: 09:40 - Subjective Subjective: Patient sitting up in bed awake and conscious Vital signs noted to be stable Patient reported that he is taken oral intake Objective - Vital Signs/Intake and Output Vital Signs (last 24 hours): Temp Pulse Resp BP Pulse Ox 98.4 F 97 H 30 H 99/59 L 97 11/01/18 08:00 11/01/18 08:00 11/01/18 08:00 11/01/18 08:00 11/01/18 08:00 Intake and Output: 11/01/18 11/01/18 06:59 18:59 Intake Total 975 Output Total 350 Balance 625 - Medications Medications: Current Medications Acetaminophen (Tylenol 325mg Tab) 650 mg PO Q6H PRN PRN Reason: Pain, moderate (4-7) Acetaminophen (Tylenol 325mg Tab) 650 mg PO Q6H PRN PRN Reason: Fever >100.4 F Albumin Human (Albumin Human 25% (12.5 Gm/50 Ml)) 12.5 gm IV Q1H [facility] Stop: 11/01/18 13:31 Albuterol Sulfate (Albuterol 0.083% Inhal Mary (2.5 Mg/3 Ml) Ud) 2.5 mg IH RQ2 PRN PRN Reason: Shortness of Breath Dextrose (Dextrose 50% Inj) 0 ml IV STAT PRN; Protocol PRN Reason: Hypoglycemia Protocol Dextrose (Glutose 15) 0 gm PO ONCE PRN; Protocol PRN Reason: Hypoglycemia Protocol Gabapentin (Neurontin) 300 mg PO HS [facility] Last Admin: 10/31/18 22:33 Dose: 300 mg Glucagon (Glucagen Diagnostic Kit) 0 mg IM STAT PRN; Protocol PRN Reason: Hypoglycemia Protocol Guaifenesin/Dextromethorphan (Robitussin Dm) 10 ml PO TID PRN PRN Reason: Cough Stop: 11/02/18 22:47 Last Admin: 10/29/18 13:01 Dose: 10 ml Heparin Sodium (Porcine) (Heparin) 5,000 units SC Q12 [facility]; Protocol Last Admin: 10/26/18 21:11 Dose: Not Given Meropenem 1 gm/ Sodium (Chloride) 100 mls @ 100 mls/hr IVPB Q12H [facility]; Protocol Last Admin: 11/01/18 05:00 Dose: 100 mls/hr Lactated Ringer's (Lactated Ringer's) 1,000 mls @ 75 mls/hr IV .[id number] [facility] Last Admin: 11/01/18 09:01 Dose: 75 mls/hr Insulin Human Lispro (Humalog) 0 units SC Q6H [facility]; Protocol Last Admin: 11/01/18 05:52 Dose: 2 unit Morphine Sulfate (Morphine) 2 mg IVP Q4H PRN PRN Reason: Pain, severe (8-10) Last Admin: 10/31/18 01:00 Dose: 2 mg Ondansetron HCl (Zofran Inj) 4 mg IVP Q6H PRN PRN Reason: Nausea/Vomiting Pantoprazole Sodium (Protonix Inj) 40 mg IVP DAILY [facility] Last Admin: 11/01/18 09:02 Dose: 40 mg Sennosides (Senokot Tab) 8.6 mg PO HS PRN PRN Reason: Constipation Tamsulosin HCl (Flomax) 0.4 mg PO DAILY [facility] Last Admin: 11/01/18 09:01 Dose: 0.4 mg - Labs Labs: 11/01/18 04:25 11/01/18 04:25 PT 28.2 Seconds (9.8-13.1) H 10/27/18 08:10 INR 2.5 10/27/18 08:10 APTT 30.8 Seconds (25.6-37.1) 10/27/18 08:10 - Constitutional Appears: No Acute Distress - Eye Exam Eye Exam: Conjunctival injection - ENT Exam ENT Exam: Mucous Membranes Moist - Respiratory Exam Respiratory Exam: NORMAL BREATHING PATTERN - Cardiovascular Exam Cardiovascular Exam: absent: Gallop, JVD, Rubs - GI/Abdominal Exam GI & Abdominal Exam: Soft, Normal Bowel Sounds - Extremities Exam Extremities Exam: absent: Calf Tenderness - Back Exam Back Exam: absent: CVA tenderness (L), CVA tenderness (R) - Neurological Exam Neurological Exam: Alert - Psychiatric Exam Psychiatric exam: Normal Affect - Skin Skin Exam: absent: Cyanosis Assessment and Plan (1) SOO (acute kidney injury) Assessment & Plan: Oligoanuric Acute Kidney Injury (N17.9) likely due to ATN 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 hx of CAD s/p CABG, DM/HTN/COPD, sys CHF, A fib Plan Antibiotics as per renal dose considering GFR Patient reported that he is eating okay and urine output reported to be adequate Kidney function continued to improve Surgical follow-up and as per primary team Status: Acute (2) Cholecystitis Status: Acute (3) Severe sepsis Status: Acute (4) Uncontrolled diabetes mellitus Status: Acute
[2018-11-01] MEDS: Albumin Human 25% (12.5 gm/50 ml) IV SCH ×4 (10:33→14:32)
--- NOTE | 2018-11-01 12:15 | PN ---
DATE: 11/01/2018 SUBJECTIVE: The patient seen and examined. Interim events noted. Consults noted and appreciated, encyclopedia research worker intervention noted and appreciated. The patient remains in intensive care unit. Case discussed with the encyclopedia research worker. The patient feels okay. Abdominal pain is controlled. No chest pain. No shortness of breath. PHYSICAL EXAMINATION: GENERAL: The patient is in no acute distress. VITAL SIGNS: Stable. HEART: S1 and S2, normal and regular. LUNGS: Good bilateral air exchange. ABDOMEN: The patient still has a little distended abdomen, but it is soft. No sign of acute abdomen. No guarding. No rigidity. No rebound. Tenderness also is much better. The patient has cholecystostomy drain which is draining minimal bile. No sign of acute complication. EXTREMITIES: No edema. No calf swelling. No tenderness. No acute ischemia. ASSISTANT SIGNAL MAINTAINER: Exam is essentially unchanged. DIAGNOSTIC DATA: Available diagnostic data reviewed. Surgical followup noted and appreciated. Overall, the patient is slowly improving. Plan as ordered. Telemetry monitoring does not show significant arrhythmias. Plan as ordered. Vicente Jacobo MD
--- NOTE | 2018-11-01 12:24 | CP.PCM.CON ---
History of Present Illness - History of Present Illness History of Present Illness: 83 y/o M with PMH of HTN, DM-II and urinary retention admitted to [facility] for evaluation and treatment of sepsis/Cholecystitis. Abd CT with evidence of a distended GB and sludge. Abd US with evidence of GB wall thickening. Seen by surgery and taken for cholecystotomy IV antibiotics adjusted based on persistent septic picture PMH: DM-II, HTN, Urinary retention PSH: Denies Allg: NKDA SH: Denies alcohol, smoking or drug use FH: Denies Past Patient History - Infectious Disease Hx of Infectious Diseases: None - Past Medical History & Family History Past Medical History?: Yes - Past Social History Smoking Status: Never Smoked - CARDIAC Hx Hypertension: Yes - ENDOCRINE/METABOLIC Hx Endocrine Disorders: Yes - MUSCULOSKELETAL/RHEUMATOLOGICAL Hx Falls: Yes - PSYCHIATRIC Hx Substance Use: No - SURGICAL HISTORY Hx Surgeries: No - ANESTHESIA Hx Anesthesia: No Meds Allergies/Adverse Reactions: Allergies Allergy/AdvReac Type Severity Reaction Status Date / Time No Known Allergies Allergy Verified 10/26/18 10:07 - Medications Medications: Current Medications Acetaminophen (Tylenol 325mg Tab) 650 mg PO Q6H PRN PRN Reason: Pain, moderate (4-7) Acetaminophen (Tylenol 325mg Tab) 650 mg PO Q6H PRN PRN Reason: Fever >100.4 F Albuterol Sulfate (Albuterol 0.083% Inhal Mary (2.5 Mg/3 Ml) Ud) 2.5 mg IH RQ2 PRN PRN Reason: Shortness of Breath Dextrose (Dextrose 50% Inj) 0 ml IV STAT PRN; Protocol PRN Reason: Hypoglycemia Protocol Dextrose (Glutose 15) 0 gm PO ONCE PRN; Protocol PRN Reason: Hypoglycemia Protocol Gabapentin (Neurontin) 300 mg PO HS NOVA Last Admin: 10/30/18 21:50 Dose: 300 mg Glucagon (Glucagen Diagnostic Kit) 0 mg IM STAT PRN; Protocol PRN Reason: Hypoglycemia Protocol Guaifenesin/Dextromethorphan (Robitussin Dm) 10 ml PO TID PRN PRN Reason: Cough Stop: 11/02/18 22:47 Last Admin: 10/29/18 13:01 Dose: 10 ml Heparin Sodium (Porcine) (Heparin) 5,000 units SC Q12 [facility]; Protocol Last Admin: 10/26/18 21:11 Dose: Not Given Meropenem 1 gm/ Sodium (Chloride) 100 mls @ 100 mls/hr IVPB Q12H [facility]; Protocol Last Admin: 10/31/18 16:29 Dose: 100 mls/hr Lactated Ringer's (Lactated Ringer's) 1,000 mls @ 75 mls/hr IV .[id number] [facility] Last Admin: 10/31/18 16:28 Dose: 75 mls/hr Norepinephrine Bitartrate 16 (mg/ Dextrose) 266 mls @ 2.49 mls/hr IV .Q24H [facility]; Protocol Stop: 10/31/18 21:55 Last Admin: 10/31/18 15:05 Dose: 5 mcg/min, 4.99 mls/hr Insulin Human Lispro (Humalog) 0 units SC Q6H [facility]; Protocol Last Admin: 10/31/18 18:04 Dose: 10 unit Morphine Sulfate (Morphine) 2 mg IVP Q4H PRN PRN Reason: Pain, severe (8-10) Last Admin: 10/31/18 01:00 Dose: 2 mg Ondansetron HCl (Zofran Inj) 4 mg IVP Q6H PRN PRN Reason: Nausea/Vomiting Pantoprazole Sodium (Protonix Inj) 40 mg IVP DAILY [facility] Last Admin: 10/31/18 10:27 Dose: 40 mg Sennosides (Senokot Tab) 8.6 mg PO HS PRN PRN Reason: Constipation Tamsulosin HCl (Flomax) 0.4 mg PO DAILY [facility] Last Admin: 10/31/18 10:27 Dose: 0.4 mg Results - Vital Signs Recent Vital Signs: Last Vital Signs Temp 99.9 F H 10/31/18 20:00 Pulse 105 H 10/31/18 20:00 Resp 27 H 10/31/18 20:00 BP 101/61 10/31/18 20:00 Pulse Ox 97 10/31/18 20:00 - Labs Result Diagrams: 11/01/18 04:25 11/01/18 04:25 Labs: Laboratory Results - last 24 hr 10/30/18 10/30/18 10/31/18 08:29 16:18 00:42 WBC RBC Hgb Hct MCV MCH MCHC RDW Plt Count Sodium Potassium Chloride Carbon Dioxide Anion Gap BUN Creatinine Est GFR ( Amer) Est GFR (Non-Af Amer) POC Glucose (mg/dL) 292 H 403 H* 226 H Random Glucose Calcium Phosphorus Magnesium Total Bilirubin AST ALT Alkaline Phosphatase Total Protein Albumin Globulin Albumin/Globulin Ratio 10/31/18 10/31/18 10/31/18 05:31 05:31 06:17 WBC 15.9 H RBC 4.32 L Hgb 12.7 Hct 38.2 MCV 88.4 MCH 29.3 MCHC 33.2 RDW 14.9 H Plt Count 128 L D Sodium 135 Potassium 3.7 Chloride 102 Carbon Dioxide 24 Anion Gap 13 BUN 34 H Creatinine 1.5 Est GFR ( Amer) 54 Est GFR (Non-Af Amer) 45 POC Glucose (mg/dL) 312 H Random Glucose 246 H Calcium 7.5 L Phosphorus 2.4 L Magnesium 1.9 Total Bilirubin 5.4 H AST 37 ALT 34 Alkaline Phosphatase 208 H D Total Protein 5.0 L Albumin 2.3 L Globulin 2.6 Albumin/Globulin Ratio 0.9 L
--- NOTE | 2018-11-01 12:25 | CP.PCM.CON ---
History of Present Illness - History of Present Illness History of Present Illness: 83 y/o M with PMH of HTN, DM-II and urinary retention admitted to [facility] for evaluation and treatment of sepsis/Cholecystitis. Abd CT with evidence of a distended GB and sludge. Abd US with evidence of GB wall thickening. Seen by surgery and taken for cholecystotomy IV antibiotics adjusted based on persistent septic picture afebrile denies pain cholecystotomy tube in place discussed with GI PMH: DM-II, HTN, Urinary retention PSH: Denies Allg: NKDA SH: Denies alcohol, smoking or drug use FH: Denies Review of Systems - Review of Systems All systems: reviewed and no additional remarkable complaints except - Constitutional Constitutional: As Per HPI - EENT Eyes: absent: As Per HPI, Blind Spots, Blurred Vision, Change in Vision, Decreased Night Vision, Diplopia, Discharge, Dry Eye, Exophthalmos, Floaters, Irritation, Itchy Eyes, Loss of Peripheral Vision, Pain, Photophobia, Requires Corrective Lenses, Sees Flashes, Spots in Vision, Tunnel Vision, Other Visual Disturbances, Loss of Vision, Other Ears: absent: As Per HPI, Decreased Hearing, Ear Discharge, Ear Pain, Tinnitus, Abnormal Hearing, Disequilibrium, Dizziness, Other Nose/Mouth/Throat: absent: As Per HPI, Epistaxis, Nasal Congestion, Nasal Discharge, Nasal Obstruction, Nasal Trauma, Nose Pain, Post Nasal Drip, Sinus Pain, Sinus Pressure, Bleeding Gums, Change in Voice, Dental Pain, Dry Mouth, Dysphagia, Halitosis, Hoarsness, Lip Swelling, Mouth Lesions, Mouth Pain, Odynophagia, Sore Throat, Throat Swelling, Tongue Swelling, Facial Pain, Neck Pain, Neck Mass, Other - Cardiovascular Cardiovascular: absent: As Per HPI, Acrocyanosis, Chest Pain, Chest Pain at Rest, Chest Pain with Activity, Claudication, Diaphoresis, Dyspnea, Dyspnea on Exertion, Edema, Irregular Heart Rhythm, Pain Radiating to Arm/Neck/Jaw, Leg Gallo ma, Leg Ulcers, Lightheadedness, Orthopnea, Palpitations, Paroxysmal Nocturnal Dyspnea, Pedal Edema, Radiating Pain, Rapid Heart Rate, Slow Heart Rate, Syncope, Other - Respiratory Respiratory: absent: As Per HPI, Cough, Dyspnea, Hemoptysis, Dyspnea on Exertion , Wheezing, Snoring, Stridor, Pain on Inspiration, Chest Congestion, Excessive Mucous Production, Change in Mucous Color, Pain with Coughing, Other - Gastrointestinal Gastrointestinal: As Per HPI, Abdominal Pain - Genitourinary Genitourinary: absent: As Per HPI, Change in Urinary Stream, Difficulty Urinating, Dysuria, Flank Pain, Hematuria, Pyuria, Nocturia, Urinary Incontinence, Urinary Frequency, Urinary Hesitance, Urinary Urgency, Voiding Freq/Small Amts, Freq UTI, Hx Renal/Bladder Calculi, Hx /Renal Surgery, Bl adder Distension, Other - Musculoskeletal Musculoskeletal: absent: As Per HPI, Abnormal Gait, Arthralgias, Atrophy, Back Pain, Deformity, Joint Swelling, Limited Range of Motion, Loss of Height, Muscle Cramps, Muscle Weakness, Myalgias, Neck Pain, Numbness, Radiating Pain into Limb, Stiffness, Tingling, Other - Integumentary Integumentary: absent: As Per HPI, Acne, Alopecia, Bleeding Lesions, Change in Hair, Change in Nails, Change in Pigmentation, Changing Lesions, Dry Skin, Erythema, Furuncle, Hirsutism, Lesions, New Lesions, Non-Healing Lesions, Photosensitivity, Pruritus, Rash, Skin Pain, Skin Ulcer, Sores, Striae, Swelling, Unusual Bruising, Wounds, Jaundice, Other - Neurological Neurological: absent: As Per HPI, Abnormal Gait, Abnormal Hearing, Abnormal Movements, Abnormal Speech, Behavioral Changes, Burning Sensations, Confusion, Convulsions, Disequilibrium, Dizziness, Numbness, Focal Weakness, Frequent Falls, Headaches, Lack of Coordination, Loss of Vision, Memory Loss, Paresthesias, Radicular Pain, Restless Legs, Sensory Deficit, Syncope, Tingling, Tremor, Vertigo, Weakness, Other Visual Disturbances, Other - Psychiatric Psychiatric: absent: As Per HPI, Abnormal Sleep Pattern, Anhedonia, Anxiety, Auditory Hallucinations, Behavioral Changes, Change in Appetite, Change in Libido, Confusion, Depression, Difficulty Concentrating, Hallucinations, Homicidal Ideation, Hopelessness, Irritability, Memory Loss, Mood Swings, Panic Attacks, Paranoia, Suicidal Ideation, Visual Hallucinations, Tactile Hallucinations, Other - Endocrine Endocrine: absent: As Per HPI, Change in Body Appearance, Change in Libido, Cold Intolorance, Deepening of Voice, Excessive Sweating, Fatigue, Flushing, Heat Intolorance, Increase in Ring/Shoe/Hat Size, Palpitations, Polydipsia, Polyphagia, Polyuria, Other - Hematologic/Lymphatic Hematologic: absent: As Per HPI, Easy Bleeding, Easy Bruising, Lymphadenopathy, Other Past Patient History - Infectious Disease Hx of Infectious Diseases: None - Past Medical History & Family History Past Medical History?: Yes - Past Social History Smoking Status: Never Smoked - CARDIAC Hx Hypertension: Yes - ENDOCRINE/METABOLIC Hx Endocrine Disorders: Yes - MUSCULOSKELETAL/RHEUMATOLOGICAL Hx Falls: Yes - PSYCHIATRIC Hx Substance Use: No - SURGICAL HISTORY Hx Surgeries: No - ANESTHESIA Hx Anesthesia: No Meds Allergies/Adverse Reactions: Allergies Allergy/AdvReac Type Severity Reaction Status Date / Time No Known Allergies Allergy Verified 10/26/18 10:07 - Medications Medications: Current Medications Acetaminophen (Tylenol 325mg Tab) 650 mg PO Q6H PRN PRN Reason: Pain, moderate (4-7) Acetaminophen (Tylenol 325mg Tab) 650 mg PO Q6H PRN PRN Reason: Fever >100.4 F Albumin Human (Albumin Human 25% (12.5 Gm/50 Ml)) 12.5 gm IV Q1H [facility]OVA Stop: 11/01/18 13:31 Last Admin: 11/01/18 12:21 Dose: 12.5 gm Albuterol Sulfate (Albuterol 0.083% Inhal Mary (2.5 Mg/3 Ml) Ud) 2.5 mg IH RQ2 PRN PRN Reason: Shortness of Breath Dextrose (Dextrose 50% Inj) 0 ml IV STAT PRN; Protocol PRN Reason: Hypoglycemia Protocol Dextrose (Glutose 15) 0 gm PO ONCE PRN; Protocol PRN Reason: Hypoglycemia Protocol Gabapentin (Neurontin) 300 mg PO HS NOVA Last Admin: 10/31/18 22:33 Dose: 300 mg Glucagon (Glucagen Diagnostic Kit) 0 mg IM STAT PRN; Protocol PRN Reason: Hypoglycemia Protocol Guaifenesin/Dextromethorphan (Robitussin Dm) 10 ml PO TID PRN PRN Reason: Cough Stop: 11/02/18 22:47 Last Admin: 10/29/18 13:01 Dose: 10 ml Heparin Sodium (Porcine) (Heparin) 5,000 units SC Q12 [facility]; Protocol Last Admin: 10/26/18 21:11 Dose: Not Given Meropenem 1 gm/ Sodium (Chloride) 100 mls @ 100 mls/hr IVPB Q12H [facility]; Protocol Last Admin: 11/01/18 05:00 Dose: 100 mls/hr Lactated Ringer's (Lactated Ringer's) 1,000 mls @ 75 mls/hr IV .[id number] [facility] Last Admin: 11/01/18 09:01 Dose: 75 mls/hr Insulin Human Lispro (Humalog) 0 units SC Q6H [facility]; Protocol Last Admin: 11/01/18 05:52 Dose: 2 unit Ondansetron HCl (Zofran Inj) 4 mg IVP Q6H PRN PRN Reason: Nausea/Vomiting Pantoprazole Sodium (Protonix Inj) 40 mg IVP DAILY [facility] Last Admin: 11/01/18 09:02 Dose: 40 mg Sennosides (Senokot Tab) 8.6 mg PO HS PRN PRN Reason: Constipation Tamsulosin HCl (Flomax) 0.4 mg PO DAILY [facility] Last Admin: 11/01/18 09:01 Dose: 0.4 mg Physical Exam - Constitutional Appears: Non-toxic, No Acute Distress, Chronically Ill - Head Exam Head Exam: NORMOCEPHALIC - Eye Exam Eye Exam: absent: Scleral icterus Pupil Exam: NORMAL ACCOMODATION - ENT Exam ENT Exam: Mucous Membranes Dry - Neck Exam Neck exam: Negative for: Lymphadenopathy - Respiratory Exam Respiratory Exam: Decreased Breath Sounds, Rhonchi - Cardiovascular Exam Cardiovascular Exam: REGULAR RHYTHM, +S1, +S2 - GI/Abdominal Exam GI & Abdominal Exam: Diminished Bowel Sounds, Distended, Guarding, Tenderness. absent: Rebound, Rigid - Rectal Exam Rectal Exam: Deferred - Exam Exam: NORMAL INSPECTION - Extremities Exam Extremities exam: Negative for: pedal edema - Back Exam Back exam: absent: CVA tenderness (L), CVA tenderness (R), paraspinal tenderness - Neurological Exam Neurological exam: Alert, CN II-XII Intact, Oriented x3, Reflexes Normal - Psychiatric Exam Psychiatric exam: Depressed - Skin Skin Exam: Dry, Intact Results - Vital Signs Recent Vital Signs: Last Vital Signs Temp 97.9 F 11/01/18 12:00 Pulse 76 11/01/18 12:00 Resp 25 H 11/01/18 12:00 BP 83/55 L 11/01/18 12:00 Pulse Ox 96 11/01/18 12:00 - Labs Result Diagrams: 11/01/18 04:25 11/01/18 04:25 Labs: Laboratory Results - last 24 hr 10/31/18 10/31/18 10/31/18 11:27 16:27 20:43 WBC RBC Hgb Hct MCV MCH MCHC RDW Plt Count Sodium Potassium Chloride Carbon Dioxide Anion Gap BUN Creatinine Est GFR ( Amer) Est GFR (Non-Af Amer) POC Glucose (mg/dL) 320 H 368 H 350 H Random Glucose Calcium Total Bilirubin AST ALT Alkaline Phosphatase Total Protein Albumin Globulin Albumin/Globulin Ratio 11/01/18 11/01/18 11/01/18 04:15 04:25 04:25 WBC 16.0 H RBC 4.08 L Hgb 12.0 Hct 35.7 MCV 87.7 MCH 29.4 MCHC 33.5 RDW 15.2 H Plt Count 150 Sodium 133 Potassium 3.4 L Chloride 104 Carbon Dioxide 22 Anion Gap 10 BUN 30 H Creatinine 1.5 Est GFR ( Amer) 54 Est GFR (Non-Af Amer) 45 POC Glucose (mg/dL) 177 H Random Glucose 164 H Calcium 7.5 L Total Bilirubin 4.2 H AST 25 ALT 34 Alkaline Phosphatase 246 H Total Protein 4.9 L Albumin 2.3 L Globulin 2.6 Albumin/Globulin Ratio 0.9 L Assessment & Plan (1) SOO (acute kidney injury) Status: Acute (2) Cholecystitis Status: Acute Priority: High (3) Severe sepsis Status: Acute Priority: High (4) Uncontrolled diabetes mellitus Status: Acute Priority: High - Assessment and Plan (Free Text) Assessment: E Coli from blood and cholecystotomy fluid IV Merrem added to cover for complicated intra-abdominal infection GI and surgery on board cont IV rx for min 7 days
--- NOTE | 2018-11-01 12:32 | CP.CCUPN ---
CCU Subjective - Physician Review Events Since Last Encounter (Free Text): 11/01/18 12:05 no complaints. CCU Objective - Vital Signs / Intake & Output Vital Signs (Last 4 hours): Vital Signs Pulse Resp BP Pulse Ox 11/01/18 09:00 96 H 25 H 122/66 97 Intake and Output (Last 8hrs): Intake & Output 10/31/18 11/01/18 11/01/18 22:59 06:59 14:59 Intake Total 870 625 270 Output Total 310 275 100 Balance 560 350 170 Weight 171 lb 8 oz Intake: IV 600 525 150 Intake, Piggyback 100 100 Oral 170 120 Output: Drainage 35 50 Right Lower Abdomen 35 50 Urine 275 225 100 Urine, Voided 275 225 100 Other: # Voids Urine, Voided 1 1 # Bowel Movements 1 - Physical Exam Head: Positive for: Atraumatic Pupils: Positive for: PERRL Mouth: Positive for: Moist Mucous Membranes Nose (External): Positive for: Atraumatic Respiratory/Chest: Positive for: Clear to Auscultation Cardiovascular: Positive for: Regular Rate and Rhythm Abdomen: Positive for: Distention (mild), Normal Bowel Sounds. Negative for: Tenderness Upper Extremity: Positive for: Normal Inspection Lower Extremity: Negative for: Edema Neurological: Positive for: Speech Normal Skin: Positive for: Normal Color Psychiatric: Positive for: Alert - Medications Active Medications: Active Medications Generic Name Dose Route Start Last Admin Trade Name Freq PRN Reason Stop Dose Admin Acetaminophen 650 mg 10/27/18 06:41 Tylenol 325mg Tab PO Q6H PRN Pain, moderate (4-7) Acetaminophen 650 mg 10/27/18 06:41 Tylenol 325mg Tab PO Q6H PRN Fever >100.4 F Albumin Human 12.5 gm 11/01/18 09:30 11/01/18 10:33 Albumin Human 25% (12.5 Gm/50 Ml) IV 11/01/18 13:31 12.5 gm Q1H NOVA Administration Albuterol Sulfate 2.5 mg 10/27/18 06:41 Albuterol 0.083% Inhal Mary (2.5 Mg/3 Ml) Ud IH RQ2 PRN Shortness of Breath Dextrose 0 ml 10/27/18 06:44 Dextrose 50% Inj IV STAT PRN Hypoglycemia Protocol Protocol Dextrose 0 gm 10/27/18 06:44 Glutose 15 PO ONCE PRN Hypoglycemia Protocol Protocol Gabapentin 300 mg 10/27/18 22:00 10/31/18 22:33 Neurontin PO 300 mg HS NOVA Administration Glucagon 0 mg 10/27/18 06:44 Glucagen Diagnostic Kit IM STAT PRN Hypoglycemia Protocol Protocol Guaifenesin/Dextromethorphan 10 ml 10/28/18 22:48 10/29/18 13:01 Robitussin Dm PO 11/02/18 22:47 10 ml TID PRN Administration Cough Heparin Sodium (Porcine) 5,000 units 10/26/18 21:00 10/26/18 21:11 Heparin SC Not Given Q12 NOVA Protocol Meropenem 1 gm/ Sodium 100 mls @ 100 mls/hr 10/31/18 16:15 11/01/18 05:00 Chloride IVPB 100 mls/hr Q12H [facility] Administration Protocol Lactated Ringer's 1,000 mls @ 75 mls/hr 10/31/18 16:15 11/01/18 09:01 Lactated Ringer's IV 75 mls/hr .[id number] [facility] Administration Insulin Human Lispro 0 units 10/31/18 12:00 11/01/18 05:52 Humalog SC 2 unit Q6H [facility] Administration Protocol Ondansetron HCl 4 mg 10/27/18 06:41 Zofran Inj IVP Q6H PRN Nausea/Vomiting Pantoprazole Sodium 40 mg 10/27/18 09:00 11/01/18 09:02 Protonix Inj IVP 40 mg DAILY [facility] Administration Sennosides 8.6 mg 10/27/18 06:41 Senokot Tab PO HS PRN Constipation Tamsulosin HCl 0.4 mg 10/29/18 11:30 11/01/18 09:01 Flomax PO 0.4 mg DAILY [facility] Administration - Patient Studies Lab Studies: Microbiology Studies 10/30/18 04:30 Blood Culture - Preliminary Blood NO GROWTH AFTER 48 HOURS 10/30/18 04:20 Blood Culture - Preliminary Blood NO GROWTH AFTER 48 HOURS Lab Studies 11/01/18 11/01/18 11/01/18 Range/Units 04:25 04:25 04:15 WBC 16.0 H (4.8-10.8) K/uL RBC 4.08 L (4.40-5.90) Mil/uL Hgb 12.0 (12.0-18.0) g/dL Hct 35.7 (35.0-51.0) % MCV 87.7 (80.0-94.0) fl MCH 29.4 (27.0-31.0) pg MCHC 33.5 (33.0-37.0) g/dL RDW 15.2 H (11.5-14.5) % Plt Count 150 (130-400) K/uL Sodium 133 (132-148) mmol/l Potassium 3.4 L (3.6-5.0) MMOL/L Chloride 104 (98-107) mmol/L Carbon Dioxide 22 (22-30) mmol/L Anion Gap 10 (10-20) BUN 30 H (9-20) mg/dl Creatinine 1.5 (0.8-1.5) mg/dl Est GFR ( Amer) 54 Est GFR (Non-Af Amer) 45 POC Glucose (mg/dL) 177 H (65-110) mg/dL Random Glucose 164 H (75-110) mg/dL Calcium 7.5 L (8.4-10.2) mg/dL Total Bilirubin 4.2 H (0.2-1.3) mg/dl AST 25 (17-59) U/L ALT 34 (21-72) U/L Alkaline Phosphatase 246 H (38-126) U/L Total Protein 4.9 L (6.3-8.2) G/DL Albumin 2.3 L (3.5-5.0) g/dL Globulin 2.6 (2.2-3.9) gm/dL Albumin/Globulin Ratio 0.9 L (1.0-2.1) 10/31/18 10/31/18 10/31/18 Range/Units 20:43 16:27 11:27 WBC (4.8-10.8) K/uL RBC (4.40-5.90) Mil/uL Hgb (12.0-18.0) g/dL Hct (35.0-51.0) % MCV (80.0-94.0) fl MCH (27.0-31.0) pg MCHC (33.0-37.0) g/dL RDW (11.5-14.5) % Plt Count (130-400) K/uL Sodium (132-148) mmol/l Potassium (3.6-5.0) MMOL/L Chloride (98-107) mmol/L Carbon Dioxide (22-30) mmol/L Anion Gap (10-20) BUN (9-20) mg/dl Creatinine (0.8-1.5) mg/dl Est GFR ( Amer) Est GFR (Non-Af Amer) POC Glucose (mg/dL) 350 H 368 H 320 H (65-110) mg/dL Random Glucose (75-110) mg/dL Calcium (8.4-10.2) mg/dL Total Bilirubin (0.2-1.3) mg/dl AST (17-59) U/L ALT (21-72) U/L Alkaline Phosphatase (38-126) U/L Total Protein (6.3-8.2) G/DL Albumin (3.5-5.0) g/dL Globulin (2.2-3.9) gm/dL Albumin/Globulin Ratio (1.0-2.1) Laboratory Results - last 24 hr 10/31/18 10/31/18 10/31/18 11:27 16:27 20:43 WBC RBC Hgb Hct MCV MCH MCHC RDW Plt Count Sodium Potassium Chloride Carbon Dioxide Anion Gap BUN Creatinine Est GFR ( Amer) Est GFR (Non-Af Amer) POC Glucose (mg/dL) 320 H 368 H 350 H Random Glucose Calcium Total Bilirubin AST ALT Alkaline Phosphatase Total Protein Albumin Globulin Albumin/Globulin Ratio 11/01/18 11/01/18 11/01/18 04:15 04:25 04:25 WBC 16.0 H RBC 4.08 L Hgb 12.0 Hct 35.7 MCV 87.7 MCH 29.4 MCHC 33.5 RDW 15.2 H Plt Count 150 Sodium 133 Potassium 3.4 L Chloride 104 Carbon Dioxide 22 Anion Gap 10 BUN 30 H Creatinine 1.5 Est GFR ( Amer) 54 Est GFR (Non-Af Amer) 45 POC Glucose (mg/dL) 177 H Random Glucose 164 H Calcium 7.5 L Total Bilirubin 4.2 H AST 25 ALT 34 Alkaline Phosphatase 246 H Total Protein 4.9 L Albumin 2.3 L Globulin 2.6 Albumin/Globulin Ratio 0.9 L Radiology Impressions: Radiology Impressions Abdomen/Pelvis CT 10/31/18 07:48 IMPRESSION: Status post percutaneous cholecystostomy. Mild thickening of gallbladder wall and pericholecystic stranding. Mild ascites new since prior examination. Small amount of air within gallbladder lumen, consistent with recent percutaneous procedure. Small bilateral pleural effusion and bilateral lower lobe compressive atelectasis. Minor findings as above. Fingerstick Blood Sugar Results: 177 Review of Systems - Review of Systems All systems: reviewed and no additional remarkable complaints except (no c omplaints) Critical Care Progress Note - Nutrition Nutrition: Nutrition Category Date Time Status Cardiac [Heart Healthy Diet] [DIET] Diets 10/29/18 Breakfast Active Assessment/Plan (1) Cholecystitis Assessment and plan: 83yo M. PMHx HTN, DM type 2, BPH. admitted for gram negative sepsis secondary to ascending cholangitis with acalcuolous cholecystitis. s/p IR perc cholecystostomy (10/27). Neuro: alert and oriented x 3 Pulm: no acute issues, breathing spontaneously on room air CV: septic shock on low dose levophed, titrating down, adding albumin drip to help titration. Hem: thrombocytopenia improving. leucytosis from sepsis increasing, despite broadening of abx regimen. Renal: SOO on CKD, improving. LR@75, borderline oliguria Endo: DM type 2, on SISS for coverage. Hyperglycemia improved. GI: heart healthy diet. Cholecystostomy draining well, t. bili downtrending. ID: gram negative sepsis from acalculous cholecystitis, Meropenem. ID - Dr. Mcintyre DVT proph - heparin sq GI proph - protonix Code status - full code Critical Care time spent 35 minutes Multi-disciplinary rounds were performed with house staff, nursing, speech therapy, respiratory therapy, pharmacy and nutrition with integrated input from the primary team/attending and other consulting services. The documented time is cumulative and includes review of patient data/exams/labs/chart review and examination of the patient on rounds and throughout the day; time is exclusive of any procedures or teaching time. Current Visit: Yes Status: Acute Priority: High
[2018-11-01] MEDS ORDERED: Chlorhexidine Gluconate 1 APPL/PKT TP ONE (22:52)
[2018-11-02] MEDS: Meropenem 1 GM in Sodium Chloride 0.9% 100 ML IVPB SCH ×2 (05:24→16:24)
[2018-11-02] MEDS: Insulin Lispro (humaLOG) 100 Units/ml Inj SC SCH ×4 (05:26→23:19)
[2018-11-02] MEDS: Albuterol 0.083% Inhal Sol (2.5 mg/3 mL) UD IH PRN (05:29)
[2018-11-02 05:44] LABS: HEMOGLOBIN 11.2 g/dL (12.0-18.0); MEAN CELL VOLUME 88.7 fl (80.0-94.0); MEAN CORPUSCULAR HEMOGLOBIN 29.6 pg (27.0-31.0); MEAN CORPUSCULAR HGB CONC 33.4 g/dL (33.0-37.0); RBC 3.78 Mil/uL (4.40-5.90); RED CELL DISTRIBUTION WIDTH 15.1 % (11.5-14.5); WHITE BLOOD COUNT 10.5 K/uL (4.8-10.8)
[2018-11-02 06:05] LABS: ALB/GLOB RATIO 1.1 (1.0-2.1); ALBUMIN 2.9 g/dL (3.5-5.0)
--- NOTE | 2018-11-02 07:33 | CP.PCM.PN ---
<Randy Hughes - Last Filed: 11/02/18 10:29> Subjective - Date & Time of Evaluation Date of Evaluation: 11/02/18 Time of Evaluation: 07:33 - Subjective Subjective: Patient seen and examined this morning with Dr Jacobo, no overnight events Patient reports feeling better, tolerating PO, denies fever, chilss,nausea, vomiting or abdominal pain at this time Objective - Vital Signs/Intake and Output Vital Signs (last 24 hours): Temp Pulse Resp BP Pulse Ox 98.8 F 94 H 29 H 123/65 96 11/02/18 07:26 11/02/18 07:26 11/02/18 07:26 11/02/18 07:26 11/02/18 07:26 Intake and Output: 11/02/18 11/02/18 06:59 18:59 Intake Total 975 Output Total 420 Balance 555 - Medications Medications: Current Medications Acetaminophen (Tylenol 325mg Tab) 650 mg PO Q6H PRN PRN Reason: Pain, moderate (4-7) Acetaminophen (Tylenol 325mg Tab) 650 mg PO Q6H PRN PRN Reason: Fever >100.4 F Albuterol Sulfate (Albuterol 0.083% Inhal Mary (2.5 Mg/3 Ml) Ud) 2.5 mg IH RQ2 PRN PRN Reason: Shortness of Breath Last Admin: 11/02/18 05:29 Dose: 2.5 mg Dextrose (Dextrose 50% Inj) 0 ml IV STAT PRN; Protocol PRN Reason: Hypoglycemia Protocol Dextrose (Glutose 15) 0 gm PO ONCE PRN; Protocol PRN Reason: Hypoglycemia Protocol Gabapentin (Neurontin) 300 mg PO HS [facility] Last Admin: 11/01/18 22:48 Dose: 300 mg Glucagon (Glucagen Diagnostic Kit) 0 mg IM STAT PRN; Protocol PRN Reason: Hypoglycemia Protocol Guaifenesin/Dextromethorphan (Robitussin Dm) 10 ml PO TID PRN PRN Reason: Cough Stop: 11/02/18 22:47 Last Admin: 10/29/18 13:01 Dose: 10 ml Heparin Sodium (Porcine) (Heparin) 5,000 units SC Q12 [facility]; Protocol Last Admin: 11/01/18 23:21 Dose: 5,000 units Meropenem 1 gm/ Sodium (Chloride) 100 mls @ 100 mls/hr IVPB Q12H [facility]; Protocol Last Admin: 11/02/18 05:24 Dose: 100 mls/hr Lactated Ringer's (Lactated Ringer's) 1,000 mls @ 75 mls/hr IV .[id number] [facility] Last Admin: 11/01/18 23:18 Dose: 75 mls/hr Insulin Human Lispro (Humalog) 0 units SC Q6H [facility]; Protocol Last Admin: 11/02/18 05:26 Dose: 8 unit Ondansetron HCl (Zofran Inj) 4 mg IVP Q6H PRN PRN Reason: Nausea/Vomiting Pantoprazole Sodium (Protonix Inj) 40 mg IVP DAILY [facility] Last Admin: 11/01/18 09:02 Dose: 40 mg Sennosides (Senokot Tab) 8.6 mg PO HS PRN PRN Reason: Constipation Tamsulosin HCl (Flomax) 0.4 mg PO DAILY [facility] Last Admin: 11/01/18 09:01 Dose: 0.4 mg - Labs Labs: 11/02/18 04:40 11/02/18 04:40 PT 28.2 Seconds (9.8-13.1) H 10/27/18 08:10 INR 2.5 10/27/18 08:10 APTT 30.8 Seconds (25.6-37.1) 10/27/18 08:10 - Constitutional Appears: Non-toxic, No Acute Distress - Head Exam Head Exam: NORMAL INSPECTION - Eye Exam Eye Exam: EOMI, PERRL - ENT Exam ENT Exam: Mucous Membranes Moist - Respiratory Exam Respiratory Exam: Clear to Ausculation Bilateral, NORMAL BREATHING PATTERN. absent: Chest Wall Tenderness - Cardiovascular Exam Cardiovascular Exam: REGULAR RHYTHM, +S1, +S2 - GI/Abdominal Exam GI & Abdominal Exam: Distended (mild), Soft, Normal Bowel Sounds. absent: Tenderness Additional comments: COLTEN drain with scant serosanguineous out - Extremities Exam Extremities Exam: absent: Calf Tenderness, Pedal Edema - Neurological Exam Neurological Exam: Alert, Awake, CN II-XII Intact, Oriented x3 - Psychiatric Exam Psychiatric exam: Normal Mood - Skin Skin Exam: Dry, Warm Assessment and Plan - Assessment and Plan (Free Text) Assessment: 83 y/o M with PMH of HTN, DM-II and urinary retention admitted to [facility] for evaluation and treatment of sepsis/Cholecystitis. Gram negative septicemia/ cholecystitis, criteria met by fever, tachycardia, leukocytosis, elevated lactic acid and cholecystitis - bile and blood cx positive for E coli - s/p Perc. cholecystostomy tube placement - Elevated Bili - leukocytosis resolved - Abd CT with evidence of a distended GB and sludge - General surgery and GI on board, input appreciated - C/w IVF, zofran and pain management - C/w IV Zosyn day 4 - F/u blood work - Rest of plan as ordered HTN, chronic, controlled - C/w home meds as ordered DM-II, chronic, uncontrolled - C/w Slididng scale insulin/hypoglycemic protocol - Accu checks Q8H DVT PPX - Heparin q12 Case discussed and patient seen with Dr. Jacobo. <Vicente Jacobo - Last Filed: 11/02/18 19:52> Objective - Vital Signs/Intake and Output Vital Signs (last 24 hours): Temp Pulse Resp BP Pulse Ox 98.2 F 96 H 28 H 117/76 99 11/02/18 16:00 11/02/18 18:00 11/02/18 18:00 11/02/18 18:00 11/02/18 18:00 Intake and Output: 11/02/18 11/02/18 11:59 23:59 Intake Total 745 1240 Output Total 570 680 Balance 175 560 - Medications Medications: Current Medications Acetaminophen (Tylenol 325mg Tab) 650 mg PO Q6H PRN PRN Reason: Pain, moderate (4-7) Acetaminophen (Tylenol 325mg Tab) 650 mg PO Q6H PRN PRN Reason: Fever >100.4 F Albuterol Sulfate (Albuterol 0.083% Inhal Mary (2.5 Mg/3 Ml) Ud) 2.5 mg IH RQ2 PRN PRN Reason: Shortness of Breath Last Admin: 11/02/18 05:29 Dose: 2.5 mg Dextrose (Dextrose 50% Inj) 0 ml IV STAT PRN; Protocol PRN Reason: Hypoglycemia Protocol Dextrose (Glutose 15) 0 gm PO ONCE PRN; Protocol PRN Reason: Hypoglycemia Protocol Gabapentin (Neurontin) 300 mg PO HS [facility] Last Admin: 11/01/18 22:48 Dose: 300 mg Glucagon (Glucagen Diagnostic Kit) 0 mg IM STAT PRN; Protocol PRN Reason: Hypoglycemia Protocol Guaifenesin/Dextromethorphan (Robitussin Dm) 10 ml PO TID PRN PRN Reason: Cough Stop: 11/02/18 22:47 Last Admin: 10/29/18 13:01 Dose: 10 ml Heparin Sodium (Porcine) (Heparin) 5,000 units SC Q12 [facility]; Protocol Last Admin: 11/02/18 08:27 Dose: 5,000 units Meropenem 1 gm/ Sodium (Chloride) 100 mls @ 100 mls/hr IVPB Q12H [facility]; Protocol Last Admin: 11/02/18 16:24 Dose: 100 mls/hr Lactated Ringer's (Lactated Ringer's) 1,000 mls @ 75 mls/hr IV .[id number] [facility] Last Admin: 11/02/18 08:28 Dose: 75 mls/hr Insulin Human Lispro (Humalog) 0 units SC Q6H [facility]; Protocol Last Admin: 11/02/18 17:00 Dose: 8 unit Ondansetron HCl (Zofran Inj) 4 mg IVP Q6H PRN PRN Reason: Nausea/Vomiting Pantoprazole Sodium (Protonix Inj) 40 mg IVP DAILY [facility] Last Admin: 11/02/18 08:29 Dose: 40 mg Sennosides (Senokot Tab) 8.6 mg PO HS PRN PRN Reason: Constipation Tamsulosin HCl (Flomax) 0.4 mg PO DAILY [facility] Last Admin: 11/02/18 08:27 Dose: 0.4 mg - Labs Labs: 11/02/18 04:40 11/02/18 04:40 PT 28.2 Seconds (9.8-13.1) H 10/27/18 08:10 INR 2.5 10/27/18 08:10 APTT 30.8 Seconds (25.6-37.1) 10/27/18 08:10 Assessment and Plan - Assessment and Plan (Free Text) Assessment: Patient was personally seen and examined by me in rounds with residents. Available labs and diagnostic data reviewed. Case, Patient's condition and management plan discussed with residents in rou nds. Agree with resident's progress note. Plan: As ordered.
--- NOTE | 2018-11-02 07:50 | CP.CCUPN ---
CCU Subjective - Physician Review Subjective (Free Text): 11/02/18 07:50 The patient was Seen/interviewed and examined by me at the bedside during ICU round, Medical records reviewed and Management issues were discussed and formulated with the house staff. Events reviewed Mr Angel is a 83 years old male with past medical history of hypertension and diabetes who was transferred to the emergency room with complaint of abdominal pain, also the patient neighbor state that the patient had an episode of unwitnessed loss of consciousness Abdominal CAT scan shows distended gallbladder with evidence of acute cholecystitis Labs noted for elevated lactate and code sepsis was called Blood culture was sent and empiric antibiotic with IV vancomycin and Zosyn he started Also aggressive IV hydration Patient was also evaluated by surgery in the emergency room, he is to be n.p.o. for OR in the morning Left femoral central line was placed for borderline blood pressure Patient admitted to the ICU for further management of severe sepsis from Cholecystitis 10/27/18, He underwent 8 Fr Perc. cholecystostomy tube placement Patient clinically improving hemodynamically improving, has been off levophed over the last 24 hours Patient awake comfortable, in no apparent distress Adequate saturation of 98-99% Patient sitting comfortable in a chair NG tube with removed Peripheral IV placed and central line was removed today Afebrile, NSR on the monitor, Cardiology consulted for Tachycardia what seems on the monitor to be PAF Last 24H I&O 2585/920 This morning labs revealed Leucocytosis trending down, renal function continued to improve BUN/Cr up to 32/1.4 CCU Objective - Vital Signs / Intake & Output Vital Signs (Last 4 hours): Vital Signs Temp Pulse Resp BP Pulse Ox 11/02/18 07:26 98.8 F 94 H 29 H 123/65 96 11/02/18 06:15 93 H 33 H 127/71 98 11/02/18 05:31 90 41 H 134/81 97 11/02/18 04:00 99.1 F 90 31 H 120/67 96 Intake and Output (Last 8hrs): Intake & Output 11/01/18 11/02/18 11/02/18 22:59 06:59 14:59 Intake Total 750 625 Output Total 200 370 Balance 550 255 Weight 175 lb 4.8 oz Intake: IV 600 525 Intake, Piggyback 100 100 Oral 50 Output: Drainage 45 Right Upper Abdomen 45 Urine 200 325 Urine, Voided 200 325 Other: # Voids Urine, Voided 1 - Physical Exam Head: Positive for: Atraumatic Pupils: Positive for: PERRL Mouth: Positive for: Moist Mucous Membranes Nose (External): Positive for: Atraumatic Respiratory/Chest: Positive for: Clear to Auscultation Cardiovascular: Positive for: Regular Rate and Rhythm Abdomen: Positive for: Distention (mild), Normal Bowel Sounds. Negative for: Tenderness Upper Extremity: Positive for: Normal Inspection Lower Extremity: Negative for: Edema Neurological: Positive for: Speech Normal Skin: Positive for: Normal Color Psychiatric: Positive for: Alert - Medications Active Medications: Active Medications Generic Name Dose Route Start Last Admin Trade Name Freq PRN Reason Stop Dose Admin Acetaminophen 650 mg 10/27/18 06:41 Tylenol 325mg Tab PO Q6H PRN Pain, moderate (4-7) Acetaminophen 650 mg 10/27/18 06:41 Tylenol 325mg Tab PO Q6H PRN Fever >100.4 F Albuterol Sulfate 2.5 mg 10/27/18 06:41 11/02/18 05:29 Albuterol 0.083% Inhal Mary (2.5 Mg/3 Ml) Ud IH 2.5 mg RQ2 PRN Administration Shortness of Breath Dextrose 0 ml 10/27/18 06:44 Dextrose 50% Inj IV STAT PRN Hypoglycemia Protocol Protocol Dextrose 0 gm 10/27/18 06:44 Glutose 15 PO ONCE PRN Hypoglycemia Protocol Protocol Gabapentin 300 mg 10/27/18 22:00 11/01/18 22:48 Neurontin PO 300 mg HS NOVA Administration Glucagon 0 mg 10/27/18 06:44 Glucagen Diagnostic Kit IM STAT PRN Hypoglycemia Protocol Protocol Guaifenesin/Dextromethorphan 10 ml 10/28/18 22:48 10/29/18 13:01 Robitussin Dm PO 11/02/18 22:47 10 ml TID PRN Administration Cough Heparin Sodium (Porcine) 5,000 units 10/26/18 21:00 11/01/18 23:21 Heparin SC 5,000 units Q12 [facility] Administration Protocol Meropenem 1 gm/ Sodium 100 mls @ 100 mls/hr 10/31/18 16:15 11/02/18 05:24 Chloride IVPB 100 mls/hr Q12H [facility] Administration Protocol Lactated Ringer's 1,000 mls @ 75 mls/hr 10/31/18 16:15 11/01/18 23:18 Lactated Ringer's IV 75 mls/hr .[id number] [facility] Administration Insulin Human Lispro 0 units 10/31/18 12:00 11/02/18 05:26 Humalog SC 8 unit Q6H [facility] Administration Protocol Ondansetron HCl 4 mg 10/27/18 06:41 Zofran Inj IVP Q6H PRN Nausea/Vomiting Pantoprazole Sodium 40 mg 10/27/18 09:00 11/01/18 09:02 Protonix Inj IVP 40 mg DAILY [facility] Administration Sennosides 8.6 mg 10/27/18 06:41 Senokot Tab PO HS PRN Constipation Tamsulosin HCl 0.4 mg 10/29/18 11:30 11/01/18 09:01 Flomax PO 0.4 mg DAILY [facility] Administration - Patient Studies Lab Studies: Microbiology Studies 10/30/18 04:30 Blood Culture - Preliminary Blood NO GROWTH AFTER 3 DAYS 10/30/18 04:20 Blood Culture - Preliminary Blood NO GROWTH AFTER 3 DAYS Lab Studies 11/02/18 11/02/18 10/29/18 Range/Units 04:40 04:40 13:44 WBC 10.5 (4.8-10.8) K/uL RBC 3.78 L (4.40-5.90) Mil/uL Hgb 11.2 L (12.0-18.0) g/dL Hct 33.6 L (35.0-51.0) % MCV 88.7 (80.0-94.0) fl MCH 29.6 (27.0-31.0) pg MCHC 33.4 (33.0-37.0) g/dL RDW 15.1 H (11.5-14.5) % Plt Count 179 (130-400) K/uL Sodium 135 (132-148) mmol/l Potassium 4.3 (3.6-5.0) MMOL/L Chloride 103 (98-107) mmol/L Carbon Dioxide 20 L (22-30) mmol/L Anion Gap 16 (10-20) BUN 32 H (9-20) mg/dl Creatinine 1.4 (0.8-1.5) mg/dl Est GFR ( Amer) 59 Est GFR (Non-Af Amer) 48 Random Glucose 269 H (75-110) mg/dL Calcium 8.0 L (8.4-10.2) mg/dL Total Bilirubin 4.4 H (0.2-1.3) mg/dl AST 32 (17-59) U/L ALT 26 (21-72) U/L Alkaline Phosphatase 306 H D (38-126) U/L Total Protein 5.5 L (6.3-8.2) G/DL Albumin 2.9 L D (3.5-5.0) g/dL Globulin 2.6 (2.2-3.9) gm/dL Albumin/Globulin Ratio 1.1 (1.0-2.1) PTH Intact Whole Molec 52 (14-64) pg/mL Laboratory Results - last 24 hr 10/29/18 11/02/18 11/02/18 13:44 04:40 04:40 WBC 10.5 RBC 3.78 L Hgb 11.2 L Hct 33.6 L MCV 88.7 MCH 29.6 MCHC 33.4 RDW 15.1 H Plt Count 179 Sodium 135 Potassium 4.3 Chloride 103 Carbon Dioxide 20 L Anion Gap 16 BUN 32 H Creatinine 1.4 Est GFR ( Amer) 59 Est GFR (Non-Af Amer) 48 Random Glucose 269 H Calcium 8.0 L Total Bilirubin 4.4 H AST 32 ALT 26 Alkaline Phosphatase 306 H D Total Protein 5.5 L Albumin 2.9 L D Globulin 2.6 Albumin/Globulin Ratio 1.1 PTH Intact Whole Molec 52 Fingerstick Blood Sugar Results: 317 Review of Systems - Constitutional Constitutional: absent: Fever, Chills, Sweats, Weakness - Cardiovascular Cardiovascular: absent: Chest Pain, Chest Pain at Rest, Chest Pain with Activity, Claudication, Diaphoresis - Respiratory Respiratory: absent: Cough, Dyspnea, Hemoptysis, Dyspnea on Exertion - Gastrointestinal Gastrointestinal: Abdominal Pain, Nausea. absent: Coffee Ground Emesis, Hematemesis, Melena, Vomiting Critical Care Progress Note - Extremities/Vascular Does the Patient have a Central Venous Catheter?: No Does the Patient need a Central Venous Catheter?: No Does the Patient have a Contreras Catheter?: No Does the Patient need a Contreras Catheter?: No - Nutrition Nutrition: Nutrition Category Date Time Status Consistent Carbohydrate [DIET] Diets 11/01/18 Dinner Active Assessment/Plan (1) Acalculous cholecystitis Current Visit: Yes Status: Acute Priority: High Comment: US showed distended GB with wall thickening. Cholangiogram showed patent cystic duct. 10/27 underwent Perc. cholecystostomy tube placement Continue ntibiotics with Meropenem 1 gm IVPB Q12H [facility] Pain control with PRN Tylenol OOB to chair (2) Severe sepsis Current Visit: Yes Status: Acute Priority: High (3) Cholecystitis Current Visit: Yes Status: Acute Priority: High (4) Uncontrolled diabetes mellitus Current Visit: Yes Status: Acute Priority: High
--- NOTE | 2018-11-02 07:55 | CP.PCM.PN ---
<Erlin Velez - Last Filed: 11/02/18 08:51> Subjective - Date & Time of Evaluation Date of Evaluation: 11/02/18 Time of Evaluation: 07:54 - Subjective Subjective: Surgery Progress Note for Dr. Marquez 83M seen and evaluated at bedside this morning. NGT was placed overnight for decompression as patient states he feels more distended, bloated than before. Patient off pressors. 45cc bilious fluid from joshua tube over 12 hours. Denies f/c, n/v/d, SOB, CP, or urinary symptoms. Objective - Vital Signs/Intake and Output Vital Signs (last 24 hours): Temp Pulse Resp BP Pulse Ox 98.8 F 94 H 29 H 123/65 96 11/02/18 07:26 11/02/18 07:26 11/02/18 07:26 11/02/18 07:26 11/02/18 07:26 Intake and Output: 11/02/18 11/02/18 06:59 18:59 Intake Total 975 Output Total 420 Balance 555 - Medications Medications: Current Medications Acetaminophen (Tylenol 325mg Tab) 650 mg PO Q6H PRN PRN Reason: Pain, moderate (4-7) Acetaminophen (Tylenol 325mg Tab) 650 mg PO Q6H PRN PRN Reason: Fever >100.4 F Albuterol Sulfate (Albuterol 0.083% Inhal Mary (2.5 Mg/3 Ml) Ud) 2.5 mg IH RQ2 PRN PRN Reason: Shortness of Breath Last Admin: 11/02/18 05:29 Dose: 2.5 mg Dextrose (Dextrose 50% Inj) 0 ml IV STAT PRN; Protocol PRN Reason: Hypoglycemia Protocol Dextrose (Glutose 15) 0 gm PO ONCE PRN; Protocol PRN Reason: Hypoglycemia Protocol Gabapentin (Neurontin) 300 mg PO HS [facility] Last Admin: 11/01/18 22:48 Dose: 300 mg Glucagon (Glucagen Diagnostic Kit) 0 mg IM STAT PRN; Protocol PRN Reason: Hypoglycemia Protocol Guaifenesin/Dextromethorphan (Robitussin Dm) 10 ml PO TID PRN PRN Reason: Cough Stop: 11/02/18 22:47 Last Admin: 10/29/18 13:01 Dose: 10 ml Heparin Sodium (Porcine) (Heparin) 5,000 units SC Q12 [facility]; Protocol Last Admin: 11/01/18 23:21 Dose: 5,000 units Meropenem 1 gm/ Sodium (Chloride) 100 mls @ 100 mls/hr IVPB Q12H [facility]; Protocol Last Admin: 11/02/18 05:24 Dose: 100 mls/hr Lactated Ringer's (Lactated Ringer's) 1,000 mls @ 75 mls/hr IV .[id number] [facility] Last Admin: 11/01/18 23:18 Dose: 75 mls/hr Insulin Human Lispro (Humalog) 0 units SC Q6H [facility]; Protocol Last Admin: 11/02/18 05:26 Dose: 8 unit Ondansetron HCl (Zofran Inj) 4 mg IVP Q6H PRN PRN Reason: Nausea/Vomiting Pantoprazole Sodium (Protonix Inj) 40 mg IVP DAILY [facility] Last Admin: 11/01/18 09:02 Dose: 40 mg Sennosides (Senokot Tab) 8.6 mg PO HS PRN PRN Reason: Constipation Tamsulosin HCl (Flomax) 0.4 mg PO DAILY [facility] Last Admin: 11/01/18 09:01 Dose: 0.4 mg - Labs Labs: 11/02/18 04:40 11/02/18 04:40 PT 28.2 Seconds (9.8-13.1) H 10/27/18 08:10 INR 2.5 10/27/18 08:10 APTT 30.8 Seconds (25.6-37.1) 10/27/18 08:10 - Constitutional Appears: Well, Non-toxic, No Acute Distress - Head Exam Head Exam: ATRAUMATIC, NORMAL INSPECTION, NORMOCEPHALIC - Eye Exam Eye Exam: EOMI - ENT Exam ENT Exam: Mucous Membranes Moist - Respiratory Exam Respiratory Exam: NORMAL BREATHING PATTERN. absent: Wheezes, Respiratory Distress - GI/Abdominal Exam GI & Abdominal Exam: Distended, Soft, Normal Bowel Sounds. absent: Guarding, Rigid, Tenderness, Rebound - Neurological Exam Neurological Exam: Alert, Awake, Oriented x3 - Psychiatric Exam Psychiatric exam: Normal Affect, Normal Mood - Skin Skin Exam: Dry, Intact, Normal Color, Warm Assessment and Plan - Assessment and Plan (Free Text) Assessment: 83M w/ acute cholecystitis and sepsis s/p joshua tube per IR POD6 Plan: NPO NGT - monitor output FU KUB May remove NGT if no signs of obstruction, no output Monitor IR drain output AM labs show tbili uptrending, will continue to monitor Further recs per Dr. Roberson PGY1 <Ruben Campbell - Last Filed: 11/07/18 04:03> Objective - Vital Signs/Intake and Output Vital Signs (last 24 hours): Temp Pulse Resp BP Pulse Ox 98.8 F 81 18 124/79 98 11/07/18 00:40 11/07/18 00:40 11/07/18 00:40 11/07/18 00:40 11/07/18 00:40 Intake and Output: 11/06/18 11/07/18 18:59 06:59 Intake Total 1050 Output Total 650 Balance 400 - Medications Medications: Current Medications Acetaminophen (Tylenol 325mg Tab) 650 mg PO Q6H PRN PRN Reason: Pain, moderate (4-7) Acetaminophen (Tylenol 325mg Tab) 650 mg PO Q6H PRN PRN Reason: Fever >100.4 F Albuterol Sulfate (Albuterol 0.083% Inhal Mary (2.5 Mg/3 Ml) Ud) 2.5 mg IH RQ2 PRN PRN Reason: Shortness of Breath Last Admin: 11/04/18 05:54 Dose: 2.5 mg Dextrose (Dextrose 50% Inj) 0 ml IV STAT PRN; Protocol PRN Reason: Hypoglycemia Protocol Dextrose (Glutose 15) 0 gm PO ONCE PRN; Protocol PRN Reason: Hypoglycemia Protocol Gabapentin (Neurontin) 300 mg PO HS [facility] Last Admin: 11/06/18 22:02 Dose: 300 mg Glucagon (Glucagen Diagnostic Kit) 0 mg IM STAT PRN; Protocol PRN Reason: Hypoglycemia Protocol Guaifenesin/Dextromethorphan (Mucinex-Dm 600-30 Mg) 1 tab PO BID [facility] Last Admin: 11/06/18 16:40 Dose: 1 tab Heparin Sodium (Porcine) (Heparin) 5,000 units SC Q12 [facility]; Protocol Last Admin: 11/06/18 21:23 Dose: 5,000 units Meropenem 1 gm/ Sodium (Chloride) 100 mls @ 100 mls/hr IVPB Q12H [facility]; Protocol Last Admin: 11/06/18 16:38 Dose: 100 mls/hr Insulin Detemir (Levemir) 8 units SC HS [facility] Insulin Human Lispro (Humalog) 0 units SC Q6H [facility]; Protocol Last Admin: 11/06/18 23:01 Dose: Not Given Ondansetron HCl (Zofran Inj) 4 mg IVP Q6H PRN PRN Reason: Nausea/Vomiting Pantoprazole Sodium (Protonix Inj) 40 mg IVP DAILY [facility] Last Admin: 11/06/18 09:39 Dose: 40 mg Sennosides (Senokot Tab) 8.6 mg PO HS [facility] Last Admin: 11/06/18 22:02 Dose: 8.6 mg Tamsulosin HCl (Flomax) 0.4 mg PO DAILY [facility] Last Admin: 11/06/18 09:38 Dose: 0.4 mg - Labs Labs: 11/06/18 04:39 11/06/18 04:39 PT 28.2 Seconds (9.8-13.1) H 10/27/18 08:10 INR 2.5 10/27/18 08:10 APTT 30.8 Seconds (25.6-37.1) 10/27/18 08:10 Assessment and Plan - Assessment and Plan (Free Text) Plan: All medical record entries made by the resident were at my direction. I have reviewed the chart and agree that the record accurately reflects my personal performance of the history, physical exam, and medical decision making
[2018-11-02] MEDS: Lactated Ringer's 1,000 ML IV SCH (08:28)
--- NOTE | 2018-11-02 09:58 | RAD ---
Date of service: 11/02/2018 HISTORY: SOB on minimal exertion COMPARISON: 10/29/2018 TECHNIQUE: 1 view obtained. FINDINGS: LUNGS: No active pulmonary disease. PLEURA: Small bilateral pleural effusion, right greater than left. No pneumothorax. CARDIOVASCULAR: No aortic atherosclerotic calcification present. Normal cardiac size. NG tube extends to upper abdomen. OSSEOUS STRUCTURES: No significant abnormalities. VISUALIZED UPPER ABDOMEN: Normal. OTHER FINDINGS: None. IMPRESSION: Small bilateral pleural effusion, right greater than left. Nasogastric tube.
--- NOTE | 2018-11-02 10:03 | CP.PCM.PN ---
Subjective - Date & Time of Evaluation Date of Evaluation: 11/02/18 Time of Evaluation: 10:08 - Subjective Subjective: Patient awake and conscious not in acute distress. Vital signs noted to be stable. Objective - Vital Signs/Intake and Output Vital Signs (last 24 hours): Temp Pulse Resp BP Pulse Ox 98.8 F 94 H 29 H 123/65 96 11/02/18 07:26 11/02/18 07:26 11/02/18 07:26 11/02/18 07:26 11/02/18 07:26 Intake and Output: 11/02/18 11/02/18 06:59 18:59 Intake Total 975 120 Output Total 420 200 Balance 555 -80 - Medications Medications: Current Medications Acetaminophen (Tylenol 325mg Tab) 650 mg PO Q6H PRN PRN Reason: Pain, moderate (4-7) Acetaminophen (Tylenol 325mg Tab) 650 mg PO Q6H PRN PRN Reason: Fever >100.4 F Albuterol Sulfate (Albuterol 0.083% Inhal Mary (2.5 Mg/3 Ml) Ud) 2.5 mg IH RQ2 PRN PRN Reason: Shortness of Breath Last Admin: 11/02/18 05:29 Dose: 2.5 mg Dextrose (Dextrose 50% Inj) 0 ml IV STAT PRN; Protocol PRN Reason: Hypoglycemia Protocol Dextrose (Glutose 15) 0 gm PO ONCE PRN; Protocol PRN Reason: Hypoglycemia Protocol Gabapentin (Neurontin) 300 mg PO HS NOVA Last Admin: 11/01/18 22:48 Dose: 300 mg Glucagon (Glucagen Diagnostic Kit) 0 mg IM STAT PRN; Protocol PRN Reason: Hypoglycemia Protocol Guaifenesin/Dextromethorphan (Robitussin Dm) 10 ml PO TID PRN PRN Reason: Cough Stop: 11/02/18 22:47 Last Admin: 10/29/18 13:01 Dose: 10 ml Heparin Sodium (Porcine) (Heparin) 5,000 units SC Q12 [facility]; Protocol Last Admin: 11/02/18 08:27 Dose: 5,000 units Meropenem 1 gm/ Sodium (Chloride) 100 mls @ 100 mls/hr IVPB Q12H [facility]; Protocol Last Admin: 11/02/18 05:24 Dose: 100 mls/hr Lactated Ringer's (Lactated Ringer's) 1,000 mls @ 75 mls/hr IV .[id number] [facility] Last Admin: 11/02/18 08:28 Dose: 75 mls/hr Insulin Human Lispro (Humalog) 0 units SC Q6H [facility]; Protocol Last Admin: 11/02/18 05:26 Dose: 8 unit Ondansetron HCl (Zofran Inj) 4 mg IVP Q6H PRN PRN Reason: Nausea/Vomiting Pantoprazole Sodium (Protonix Inj) 40 mg IVP DAILY [facility] Last Admin: 11/02/18 08:29 Dose: 40 mg Sennosides (Senokot Tab) 8.6 mg PO HS PRN PRN Reason: Constipation Tamsulosin HCl (Flomax) 0.4 mg PO DAILY [facility] Last Admin: 11/02/18 08:27 Dose: 0.4 mg - Labs Labs: 11/02/18 04:40 11/02/18 04:40 PT 28.2 Seconds (9.8-13.1) H 10/27/18 08:10 INR 2.5 10/27/18 08:10 APTT 30.8 Seconds (25.6-37.1) 10/27/18 08:10 - Constitutional Appears: No Acute Distress - Eye Exam Eye Exam: Conjunctival injection - ENT Exam ENT Exam: Mucous Membranes Moist - Neck Exam Neck Exam: absent: Lymphadenopathy - Respiratory Exam Respiratory Exam: absent: Chest Wall Tenderness, Rales, Rhonchi - Cardiovascular Exam Cardiovascular Exam: absent: Gallop, JVD, Rubs - GI/Abdominal Exam GI & Abdominal Exam: Distended, Normal Bowel Sounds - Extremities Exam Extremities Exam: absent: Calf Tenderness - Back Exam Back Exam: absent: CVA tenderness (L), CVA tenderness (R) - Neurological Exam Neurological Exam: Alert - Skin Skin Exam: absent: Cyanosis Assessment and Plan (1) SOO (acute kidney injury) Assessment & Plan: Oligoanuric Acute Kidney Injury (N17.9) likely due to ATN 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 hx of CAD s/p CABG, DM/HTN/COPD, sys CHF, A fib Plan Antibiotics as noted IT for the bacteremia and infection Kidney function continued to improve serum creatinine trending down Patient required to have NG tube for decompression apparently Status: Acute (2) Cholecystitis Status: Acute (3) Severe sepsis Status: Acute (4) Uncontrolled diabetes mellitus Status: Acute
--- NOTE | 2018-11-02 10:57 | CP.PCM.PN ---
Subjective - Date & Time of Evaluation Date of Evaluation: 11/02/18 Time of Evaluation: 09:00 - Subjective Subjective: improving ' Objective - Vital Signs/Intake and Output Vital Signs (last 24 hours): Temp Pulse Resp BP Pulse Ox 98.8 F 94 H 29 H 123/65 96 11/02/18 07:26 11/02/18 07:26 11/02/18 07:26 11/02/18 07:26 11/02/18 07:26 Intake and Output: 11/02/18 11/02/18 06:59 18:59 Intake Total 975 120 Output Total 420 200 Balance 555 -80 - Medications Medications: Current Medications Acetaminophen (Tylenol 325mg Tab) 650 mg PO Q6H PRN PRN Reason: Pain, moderate (4-7) Acetaminophen (Tylenol 325mg Tab) 650 mg PO Q6H PRN PRN Reason: Fever >100.4 F Albuterol Sulfate (Albuterol 0.083% Inhal Mary (2.5 Mg/3 Ml) Ud) 2.5 mg IH RQ2 PRN PRN Reason: Shortness of Breath Last Admin: 11/02/18 05:29 Dose: 2.5 mg Dextrose (Dextrose 50% Inj) 0 ml IV STAT PRN; Protocol PRN Reason: Hypoglycemia Protocol Dextrose (Glutose 15) 0 gm PO ONCE PRN; Protocol PRN Reason: Hypoglycemia Protocol Gabapentin (Neurontin) 300 mg PO HS NOVA Last Admin: 11/01/18 22:48 Dose: 300 mg Glucagon (Glucagen Diagnostic Kit) 0 mg IM STAT PRN; Protocol PRN Reason: Hypoglycemia Protocol Guaifenesin/Dextromethorphan (Robitussin Dm) 10 ml PO TID PRN PRN Reason: Cough Stop: 11/02/18 22:47 Last Admin: 10/29/18 13:01 Dose: 10 ml Heparin Sodium (Porcine) (Heparin) 5,000 units SC Q12 [facility]; Protocol Last Admin: 11/02/18 08:27 Dose: 5,000 units Meropenem 1 gm/ Sodium (Chloride) 100 mls @ 100 mls/hr IVPB Q12H [facility]; Protocol Last Admin: 11/02/18 05:24 Dose: 100 mls/hr Lactated Ringer's (Lactated Ringer's) 1,000 mls @ 75 mls/hr IV .[id number] [facility] Last Admin: 11/02/18 08:28 Dose: 75 mls/hr Insulin Human Lispro (Humalog) 0 units SC Q6H [facility]; Protocol Last Admin: 11/02/18 05:26 Dose: 8 unit Ondansetron HCl (Zofran Inj) 4 mg IVP Q6H PRN PRN Reason: Nausea/Vomiting Pantoprazole Sodium (Protonix Inj) 40 mg IVP DAILY [facility] Last Admin: 11/02/18 08:29 Dose: 40 mg Sennosides (Senokot Tab) 8.6 mg PO HS PRN PRN Reason: Constipation Tamsulosin HCl (Flomax) 0.4 mg PO DAILY [facility] Last Admin: 11/02/18 08:27 Dose: 0.4 mg - Labs Labs: 11/02/18 04:40 11/02/18 04:40 PT 28.2 Seconds (9.8-13.1) H 10/27/18 08:10 INR 2.5 10/27/18 08:10 APTT 30.8 Seconds (25.6-37.1) 10/27/18 08:10 - Constitutional Appears: Non-toxic, Chronically Ill - Head Exam Head Exam: ATRAUMATIC, NORMAL INSPECTION, NORMOCEPHALIC - Eye Exam Eye Exam: EOMI, Normal appearance, PERRL Pupil Exam: NORMAL ACCOMODATION, PERRL - ENT Exam ENT Exam: Mucous Membranes Moist, Normal Exam - Neck Exam Neck Exam: Full ROM, Normal Inspection. absent: Lymphadenopathy - Respiratory Exam Respiratory Exam: Clear to Ausculation Bilateral, NORMAL BREATHING PATTERN - Cardiovascular Exam Cardiovascular Exam: REGULAR RHYTHM, +S1, +S2. absent: Murmur - GI/Abdominal Exam GI & Abdominal Exam: Soft, Normal Bowel Sounds. absent: Tenderness - Rectal Exam Rectal Exam: Deferred - Exam Exam: NORMAL INSPECTION - Extremities Exam Extremities Exam: Full ROM, Normal Capillary Refill, Normal Inspection. absent: Joint Swelling, Pedal Edema - Back Exam Back Exam: NORMAL INSPECTION - Neurological Exam Neurological Exam: Alert, Awake, CN II-XII Intact, Normal Gait, Oriented x3 - Psychiatric Exam Psychiatric exam: Normal Affect, Normal Mood - Skin Skin Exam: Dry, Intact, Normal Color, Warm Assessment and Plan (1) SOO (acute kidney injury) Status: Acute (2) Cholecystitis Status: Acute (3) Severe sepsis Status: Acute (4) Uncontrolled diabetes mellitus Status: Acute - Assessment and Plan (Free Text) Assessment: cont iv antibiotics for min 7 days
--- NOTE | 2018-11-02 11:19 | CP.PCM.CON ---
History of Present Illness - History of Present Illness History of Present Illness: This 83-year-old hypertensive man with dyslipidemia and diabetes mellitus was hospitalized with acute cholecystitis and recently underwent cholecystostomy has been demonstrating relief brief periods of junctional tachycardia at rates of 80 to 85 bpm. He remains hemodynamically stable during these episodes. He denies prior history of chest pain or myocardial infarction or any symptoms of congestive cardiac failure. Physical examination shows an elderly man who is sitting up comfortably in the chair and can carry on a conversation. He breathes at 16 breaths/min and has a heart rate of 90 bpm and a blood pressure of 134/74 mmHg. His jugular venous pressure was not elevated there was no edema over his lower extremity. His pedal pulses were feeble but distinctly present. There were no carotid bruits. The apex was in the fifth space the first and second heart sounds were normal. No murmur or gallop were audible. There were no rales. His electrocardiogram at admission showed sinus rhythm at 82 bpm with a pattern suggestive of left atrial enlargement. His recent electrocardiogram taken today shows accelerated junctional rhythm at 92 bpm. 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 Patient's labs were noted. Impression: Brief periods of ritu tachycardia. Status post cholecystostomy for acute cholecystitis. History of hypertension dyslipidemia and diabetes mellitus. This rhythm has a fairly benign significance and no further interventions are recommended at this juncture. Past Patient History - Infectious Disease Hx of Infectious Diseases: None - Past Medical History & Family History Past Medical History?: Yes - Past Social History Smoking Status: Never Smoked - CARDIAC Hx Hypertension: Yes - ENDOCRINE/METABOLIC Hx Endocrine Disorders: Yes - MUSCULOSKELETAL/RHEUMATOLOGICAL Hx Falls: Yes - PSYCHIATRIC Hx Substance Use: No - SURGICAL HISTORY Hx Surgeries: No - ANESTHESIA Hx Anesthesia: No Meds Allergies/Adverse Reactions: Allergies Allergy/AdvReac Type Severity Reaction Status Date / Time No Known Allergies Allergy Verified 10/26/18 10:07 - Medications Medications: Current Medications Acetaminophen (Tylenol 325mg Tab) 650 mg PO Q6H PRN PRN Reason: Pain, moderate (4-7) Acetaminophen (Tylenol 325mg Tab) 650 mg PO Q6H PRN PRN Reason: Fever >100.4 F Albuterol Sulfate (Albuterol 0.083% Inhal Mary (2.5 Mg/3 Ml) Ud) 2.5 mg IH RQ2 PRN PRN Reason: Shortness of Breath Last Admin: 11/02/18 05:29 Dose: 2.5 mg Dextrose (Dextrose 50% Inj) 0 ml IV STAT PRN; Protocol PRN Reason: Hypoglycemia Protocol Dextrose (Glutose 15) 0 gm PO ONCE PRN; Protocol PRN Reason: Hypoglycemia Protocol Gabapentin (Neurontin) 300 mg PO HS NOVA Last Admin: 11/01/18 22:48 Dose: 300 mg Glucagon (Glucagen Diagnostic Kit) 0 mg IM STAT PRN; Protocol PRN Reason: Hypoglycemia Protocol Guaifenesin/Dextromethorphan (Robitussin Dm) 10 ml PO TID PRN PRN Reason: Cough Stop: 11/02/18 22:47 Last Admin: 10/29/18 13:01 Dose: 10 ml Heparin Sodium (Porcine) (Heparin) 5,000 units SC Q12 [facility]; Protocol Last Admin: 11/02/18 08:27 Dose: 5,000 units Meropenem 1 gm/ Sodium (Chloride) 100 mls @ 100 mls/hr IVPB Q12H [facility]; Protocol Last Admin: 11/02/18 05:24 Dose: 100 mls/hr Lactated Ringer's (Lactated Ringer's) 1,000 mls @ 75 mls/hr IV .[id number] [facility] Last Admin: 11/02/18 08:28 Dose: 75 mls/hr Insulin Human Lispro (Humalog) 0 units SC Q6H [facility]; Protocol Last Admin: 11/02/18 05:26 Dose: 8 unit Ondansetron HCl (Zofran Inj) 4 mg IVP Q6H PRN PRN Reason: Nausea/Vomiting Pantoprazole Sodium (Protonix Inj) 40 mg IVP DAILY [facility] Last Admin: 11/02/18 08:29 Dose: 40 mg Sennosides (Senokot Tab) 8.6 mg PO HS PRN PRN Reason: Constipation Tamsulosin HCl (Flomax) 0.4 mg PO DAILY [facility] Last Admin: 11/02/18 08:27 Dose: 0.4 mg Results - Vital Signs Recent Vital Signs: Last Vital Signs Temp 98.8 F 11/02/18 07:26 Pulse 94 H 11/02/18 07:26 Resp 29 H 11/02/18 07:26 BP 123/65 11/02/18 07:26 Pulse Ox 96 11/02/18 07:26 - Labs Result Diagrams: 11/02/18 04:40 11/02/18 04:40 Labs: Laboratory Results - last 24 hr 10/29/18 11/02/18 11/02/18 13:44 04:40 04:40 WBC 10.5 RBC 3.78 L Hgb 11.2 L Hct 33.6 L MCV 88.7 MCH 29.6 MCHC 33.4 RDW 15.1 H Plt Count 179 Sodium 135 Potassium 4.3 Chloride 103 Carbon Dioxide 20 L Anion Gap 16 BUN 32 H Creatinine 1.4 Est GFR ( Amer) 59 Est GFR (Non-Af Amer) 48 Random Glucose 269 H Calcium 8.0 L Total Bilirubin 4.4 H AST 32 ALT 26 Alkaline Phosphatase 306 H D Total Protein 5.5 L Albumin 2.9 L D Globulin 2.6 Albumin/Globulin Ratio 1.1 PTH Intact Whole Molec 52
--- NOTE | 2018-11-02 12:27 | RAD ---
Date of service: 11/02/2018 HISTORY: abdominal distension, s/p NGT COMPARISON: 10/29/2018. TECHNIQUE: 1 view obtained. FINDINGS: BOWEL: Normal. No obstruction. No free air. BONES: Normal. OTHER FINDINGS: Right upper quadrant percutaneous cholecystotomy catheter unchanged. Venous access catheter left hemipelvis unchanged. IMPRESSION: No acute or significant findings related to/ accounting for the clinical presentation. Additional benign and/or incidental findings described above. No significant interval change compared to the prior examination(s).
--- NOTE | 2018-11-02 17:28 | CARD ---
APPROVED REPORT Date of service: 11/02/2018 EKG Measurement Heart [id number] <Conclusion> Accelerated Junctional rhythm Prolonged QT Abnormal ECG
--- NOTE | 2018-11-02 18:01 | CP.PCM.PN ---
Subjective - Date & Time of Evaluation Date of Evaluation: 11/01/18 Time of Evaluation: 12:00 - Subjective Subjective: no overnight events Objective - Vital Signs/Intake and Output Vital Signs (last 24 hours): Temp Pulse Resp BP Pulse Ox 98.2 F 100 H 25 H 132/76 96 11/02/18 16:00 11/02/18 16:00 11/02/18 16:00 11/02/18 16:00 11/02/18 16:00 Intake and Output: 11/02/18 11/02/18 06:59 18:59 Intake Total 975 1360 Output Total 420 880 Balance 555 480 - Medications Medications: Current Medications Acetaminophen (Tylenol 325mg Tab) 650 mg PO Q6H PRN PRN Reason: Pain, moderate (4-7) Acetaminophen (Tylenol 325mg Tab) 650 mg PO Q6H PRN PRN Reason: Fever >100.4 F Albuterol Sulfate (Albuterol 0.083% Inhal Mary (2.5 Mg/3 Ml) Ud) 2.5 mg IH RQ2 PRN PRN Reason: Shortness of Breath Last Admin: 11/02/18 05:29 Dose: 2.5 mg Dextrose (Dextrose 50% Inj) 0 ml IV STAT PRN; Protocol PRN Reason: Hypoglycemia Protocol Dextrose (Glutose 15) 0 gm PO ONCE PRN; Protocol PRN Reason: Hypoglycemia Protocol Gabapentin (Neurontin) 300 mg PO HS [facility] Last Admin: 11/01/18 22:48 Dose: 300 mg Glucagon (Glucagen Diagnostic Kit) 0 mg IM STAT PRN; Protocol PRN Reason: Hypoglycemia Protocol Guaifenesin/Dextromethorphan (Robitussin Dm) 10 ml PO TID PRN PRN Reason: Cough Stop: 11/02/18 22:47 Last Admin: 10/29/18 13:01 Dose: 10 ml Heparin Sodium (Porcine) (Heparin) 5,000 units SC Q12 [facility]; Protocol Last Admin: 11/02/18 08:27 Dose: 5,000 units Meropenem 1 gm/ Sodium (Chloride) 100 mls @ 100 mls/hr IVPB Q12H [facility]; Protocol Last Admin: 11/02/18 16:24 Dose: 100 mls/hr Lactated Ringer's (Lactated Ringer's) 1,000 mls @ 75 mls/hr IV .[id number] [facility] Last Admin: 11/02/18 08:28 Dose: 75 mls/hr Insulin Human Lispro (Humalog) 0 units SC Q6H [facility]; Protocol Last Admin: 11/02/18 17:00 Dose: 8 unit Ondansetron HCl (Zofran Inj) 4 mg IVP Q6H PRN PRN Reason: Nausea/Vomiting Pantoprazole Sodium (Protonix Inj) 40 mg IVP DAILY [facility] Last Admin: 11/02/18 08:29 Dose: 40 mg Sennosides (Senokot Tab) 8.6 mg PO HS PRN PRN Reason: Constipation Tamsulosin HCl (Flomax) 0.4 mg PO DAILY [facility] Last Admin: 11/02/18 08:27 Dose: 0.4 mg - Labs Labs: 11/02/18 04:40 11/02/18 04:40 PT 28.2 Seconds (9.8-13.1) H 10/27/18 08:10 INR 2.5 10/27/18 08:10 APTT 30.8 Seconds (25.6-37.1) 10/27/18 08:10 - Head Exam Head Exam: NORMOCEPHALIC - Neck Exam Neck Exam: Normal Inspection - Respiratory Exam Respiratory Exam: Clear to Ausculation Bilateral, NORMAL BREATHING PATTERN - Cardiovascular Exam Cardiovascular Exam: REGULAR RHYTHM - GI/Abdominal Exam GI & Abdominal Exam: Soft, Normal Bowel Sounds Assessment and Plan - Assessment and Plan (Free Text) Assessment: 83 yo male with cholecystitis s/p perc hol lft normalizing
[2018-11-03] MEDS: Meropenem 1 GM in Sodium Chloride 0.9% 100 ML IVPB SCH ×2 (03:22→16:40)
[2018-11-03] MEDS: Lactated Ringer's 1,000 ML IV SCH ×2 (03:26→11:48)
[2018-11-03 04:48] LABS: HEMOGLOBIN 11.3 g/dL (12.0-18.0); MEAN CELL VOLUME 89.1 fl (80.0-94.0); MEAN CORPUSCULAR HEMOGLOBIN 29.7 pg (27.0-31.0); MEAN CORPUSCULAR HGB CONC 33.3 g/dL (33.0-37.0); RBC 3.8 Mil/uL (4.40-5.90); WHITE BLOOD COUNT 10.6 K/uL (4.8-10.8)
[2018-11-03 04:58] LABS: CALCIUM 7.8 mg/dL (8.4-10.2)
[2018-11-03] MEDS: Insulin Lispro (humaLOG) 100 Units/ml Inj SC SCH ×4 (06:30→23:36)
--- NOTE | 2018-11-03 06:47 | CP.PCM.PN ---
<Randy Hughes - Last Filed: 11/03/18 09:59> Subjective - Date & Time of Evaluation Date of Evaluation: 11/03/18 Time of Evaluation: 06:47 - Subjective Subjective: Patient seen and examined this morning with Dr Jacobo, no overnight events, reports feeling better, tolerating PO, denies nausea, vomiting or abdominal pain at this time. Afebrile Patient clinically and hemodynamically improving, off levophed NG tube with removed Peripheral IV I&O 2485/1260 Objective - Vital Signs/Intake and Output Vital Signs (last 24 hours): Temp Pulse Resp BP Pulse Ox 98.7 F 87 26 H 109/64 100 11/03/18 04:00 11/03/18 06:00 11/03/18 06:00 11/03/18 06:00 11/03/18 06:00 Intake and Output: 11/02/18 11/03/18 18:59 06:59 Intake Total 1360 1125 Output Total 880 380 Balance 480 745 - Medications Medications: Current Medications Acetaminophen (Tylenol 325mg Tab) 650 mg PO Q6H PRN PRN Reason: Pain, moderate (4-7) Acetaminophen (Tylenol 325mg Tab) 650 mg PO Q6H PRN PRN Reason: Fever >100.4 F Albuterol Sulfate (Albuterol 0.083% Inhal Mary (2.5 Mg/3 Ml) Ud) 2.5 mg IH RQ2 PRN PRN Reason: Shortness of Breath Last Admin: 11/02/18 05:29 Dose: 2.5 mg Dextrose (Dextrose 50% Inj) 0 ml IV STAT PRN; Protocol PRN Reason: Hypoglycemia Protocol Dextrose (Glutose 15) 0 gm PO ONCE PRN; Protocol PRN Reason: Hypoglycemia Protocol Gabapentin (Neurontin) 300 mg PO HS [facility] Last Admin: 11/02/18 21:05 Dose: 300 mg Glucagon (Glucagen Diagnostic Kit) 0 mg IM STAT PRN; Protocol PRN Reason: Hypoglycemia Protocol Heparin Sodium (Porcine) (Heparin) 5,000 units SC Q12 [facility]; Protocol Last Admin: 11/02/18 20:37 Dose: 5,000 units Meropenem 1 gm/ Sodium (Chloride) 100 mls @ 100 mls/hr IVPB Q12H [facility]; Protocol Last Admin: 11/03/18 03:22 Dose: 100 mls/hr Lactated Ringer's (Lactated Ringer's) 1,000 mls @ 75 mls/hr IV .[id number] [facility] Last Admin: 11/03/18 03:26 Dose: 75 mls/hr Insulin Human Lispro (Humalog) 0 units SC Q6H [facility]; Protocol Last Admin: 11/03/18 06:30 Dose: 4 unit Ondansetron HCl (Zofran Inj) 4 mg IVP Q6H PRN PRN Reason: Nausea/Vomiting Pantoprazole Sodium (Protonix Inj) 40 mg IVP DAILY [facility] Last Admin: 11/02/18 08:29 Dose: 40 mg Sennosides (Senokot Tab) 8.6 mg PO HS PRN PRN Reason: Constipation Tamsulosin HCl (Flomax) 0.4 mg PO DAILY [facility] Last Admin: 11/02/18 08:27 Dose: 0.4 mg - Labs Labs: 11/03/18 04:25 11/03/18 04:25 PT 28.2 Seconds (9.8-13.1) H 10/27/18 08:10 INR 2.5 10/27/18 08:10 APTT 30.8 Seconds (25.6-37.1) 10/27/18 08:10 - Constitutional Appears: Non-toxic, No Acute Distress - Head Exam Head Exam: NORMAL INSPECTION - Eye Exam Eye Exam: EOMI, PERRL. absent: Nystagmus - ENT Exam ENT Exam: Mucous Membranes Moist - Neck Exam Neck Exam: Full ROM. absent: Lymphadenopathy, Tenderness, Thyromegaly - Respiratory Exam Respiratory Exam: Clear to Ausculation Bilateral, NORMAL BREATHING PATTERN. absent: Chest Wall Tenderness - Cardiovascular Exam Cardiovascular Exam: REGULAR RHYTHM, +S1, +S2. absent: Tachycardia - GI/Abdominal Exam GI & Abdominal Exam: Distended, Soft, Normal Bowel Sounds. absent: Tenderness - Neurological Exam Neurological Exam: Alert, Awake, CN II-XII Intact, Oriented x3 - Psychiatric Exam Psychiatric exam: Normal Mood - Skin Skin Exam: Dry, Warm Assessment and Plan - Assessment and Plan (Free Text) Assessment: 83 y/o M with PMH of HTN, DM-II and urinary retention admitted to [facility] for evaluation and treatment of Sepsis/Cholecystitis. Gram negative septicemia/cholecystitis - KUB yesterday negative for obstruction or free air - improving - VSS - blood cx negative for 76 hrs - Leucocytosis resolved - renal function continued to improve BUN/Cr up to 28/1.4 - Elevated Bili - General surgery and GI on board, input appreciated - C/w IVF, zofran and pain management - C/w IV Zosyn day 5 - F/u blood work HTN, chronic, controlled - BP held due to hypotension - Cardiology consulted for tachycardia noted on the monitor, recs appreciated DM-II, chronic, uncontrolled - C/w Slididng scale insulin/hypoglycemic protocol - Accu checks Q8H DVT PPX - Heparin q12 Rest of plan as ordered Case discussed and patient seen with Dr. Jacobo. <Vicente Jacobo - Last Filed: 11/05/18 08:08> Objective - Vital Signs/Intake and Output Vital Signs (last 24 hours): Temp Pulse Resp BP Pulse Ox 97.8 F 77 19 91/67 L 100 11/05/18 00:47 11/05/18 05:00 11/05/18 05:00 11/05/18 05:00 11/05/18 05:00 Intake and Output: 11/04/18 11/05/18 23:59 11:59 Intake Total 350 100 Output Total 290 260 Balance 60 -160 - Medications Medications: Current Medications Acetaminophen (Tylenol 325mg Tab) 650 mg PO Q6H PRN PRN Reason: Pain, moderate (4-7) Acetaminophen (Tylenol 325mg Tab) 650 mg PO Q6H PRN PRN Reason: Fever >100.4 F Albuterol Sulfate (Albuterol 0.083% Inhal Mary (2.5 Mg/3 Ml) Ud) 2.5 mg IH RQ2 PRN PRN Reason: Shortness of Breath Last Admin: 11/04/18 05:54 Dose: 2.5 mg Dextrose (Dextrose 50% Inj) 0 ml IV STAT PRN; Protocol PRN Reason: Hypoglycemia Protocol Dextrose (Glutose 15) 0 gm PO ONCE PRN; Protocol PRN Reason: Hypoglycemia Protocol Gabapentin (Neurontin) 300 mg PO HS [facility] Last Admin: 11/04/18 21:58 Dose: 300 mg Glucagon (Glucagen Diagnostic Kit) 0 mg IM STAT PRN; Protocol PRN Reason: Hypoglycemia Protocol Guaifenesin/Dextromethorphan (Mucinex-Dm 600-30 Mg) 1 tab PO BID [facility] Last Admin: 11/04/18 16:29 Dose: 1 tab Heparin Sodium (Porcine) (Heparin) 5,000 units SC Q12 [facility]; Protocol Last Admin: 11/04/18 21:57 Dose: 5,000 units Meropenem 1 gm/ Sodium (Chloride) 100 mls @ 100 mls/hr IVPB Q12H [facility]; Protocol Last Admin: 11/05/18 04:54 Dose: 100 mls/hr Insulin Detemir (Levemir) 6 units SC [facility] Insulin Human Lispro (Humalog) 0 units SC Q6H [facility]; Protocol Last Admin: 11/05/18 06:28 Dose: 4 unit Ondansetron HCl (Zofran Inj) 4 mg IVP Q6H PRN PRN Reason: Nausea/Vomiting Pantoprazole Sodium (Protonix Inj) 40 mg IVP DAILY [facility] Last Admin: 11/04/18 08:57 Dose: 40 mg Sennosides (Senokot Tab) 8.6 mg PO [facility] Last Admin: 11/04/18 21:57 Dose: 8.6 mg Tamsulosin HCl (Flomax) 0.4 mg PO DAILY [facility] Last Admin: 11/04/18 08:53 Dose: 0.4 mg - Labs Labs: 11/05/18 04:00 11/05/18 04:25 PT 28.2 Seconds (9.8-13.1) H 10/27/18 08:10 INR 2.5 10/27/18 08:10 APTT 30.8 Seconds (25.6-37.1) 10/27/18 08:10 Assessment and Plan - Assessment and Plan (Free Text) Assessment: Patient was personally seen and examined by me in rounds with residents. Available labs and diagnostic data reviewed. Case, Patient's condition and management plan discussed with residents in rounds. Agree with resident's progress note. Plan: As ordered.
--- NOTE | 2018-11-03 09:23 | CP.PCM.PN ---
Subjective - Date & Time of Evaluation Date of Evaluation: 11/03/18 Time of Evaluation: 09:21 - Subjective Subjective: Nephrology Consultation Note Assessment: critical Acute Kidney Injury (N17.9) likely due to ATN/pre-renal state/sepsis Diabetic chronic Kidney Disease (E11.22) Hypertensive Chronic Kidney Disease (I12.9) Chronic Kidney Disease (N18.3) Stage 3 with baseline cr 1.3 E coli sepsis with acute cholecystitis lactic acidosis Plan renal function improved likely now at baseline bp controlled on just flomax Monitor Input/Output, daily weights and renal function with basic metabolic panel f/u surgery Dose meds/antibiotics for reduced GFR. Avoid nephrotoxins/NSAIDs/ iodinated contrast (unless needed emergently) Glycemic control per primary team Further work up for as per primary team Subjective: seen and examined denies n/v still w/ abdominal distension Physical Examination: General Appearance: Comfortable, in no acute respiratory distress, co-operative . Vitals reviewed and noted as below Head; Atraumatic, normocephalic ENT: no ulcers no thrush. Tongue is midline. Oropharynx: no rash or ulcers. EYES: Pupils are equal, round and reactive to light accommodation. Eye muscles and extraocular movement intact. Sclera is icteric. Neck; supple no lymphadenopathy, no thyromegaly or bruit Lungs: Normal respiratory rate/effort. Breath sounds bilateral equal and clearer Heart: Normal rate. s1s2 normal. No rub or gallop. Extremities: no edema. No varicose veins Neurological: Patient is alert, awake and oriented to person, place and time. No focal deficit. Strength bilateral appropriate and equal Skin: Warm and dry. Normal turgor. No rash. Palpitation: Normal elasticity for age Abdomen: Abdomen is soft but distended. Bowel sounds +. Psych: normal insight and normal affect/mood MSK: no joint tenderness or swelling. Digits and nails normal, no deformity : kidney or bladder not palpable Labs/imaging reviewed. Past medical history, past surgical history, family history, social history, allergy reviewed and noted as below Family hx: no hx of CKD. Rest non-contributory Objective - Vital Signs/Intake and Output Vital Signs (last 24 hours): Temp Pulse Resp BP Pulse Ox 98.6 F 86 24 110/62 100 11/03/18 07:38 11/03/18 07:38 11/03/18 07:38 11/03/18 07:38 11/03/18 07:38 Intake and Output: 11/03/18 11/03/18 06:59 18:59 Intake Total 1125 Output Total 380 Balance 745 - Medications Medications: Current Medications Acetaminophen (Tylenol 325mg Tab) 650 mg PO Q6H PRN PRN Reason: Pain, moderate (4-7) Acetaminophen (Tylenol 325mg Tab) 650 mg PO Q6H PRN PRN Reason: Fever >100.4 F Albuterol Sulfate (Albuterol 0.083% Inhal Mary (2.5 Mg/3 Ml) Ud) 2.5 mg IH RQ2 PRN PRN Reason: Shortness of Breath Last Admin: 11/02/18 05:29 Dose: 2.5 mg Dextrose (Dextrose 50% Inj) 0 ml IV STAT PRN; Protocol PRN Reason: Hypoglycemia Protocol Dextrose (Glutose 15) 0 gm PO ONCE PRN; Protocol PRN Reason: Hypoglycemia Protocol Gabapentin (Neurontin) 300 mg PO HS NOVA Last Admin: 11/02/18 21:05 Dose: 300 mg Glucagon (Glucagen Diagnostic Kit) 0 mg IM STAT PRN; Protocol PRN Reason: Hypoglycemia Protocol Heparin Sodium (Porcine) (Heparin) 5,000 units SC Q12 NOVA; Protocol Last Admin: 11/03/18 09:19 Dose: 5,000 units Meropenem 1 gm/ Sodium (Chloride) 100 mls @ 100 mls/hr IVPB Q12H NOVA; Protocol Last Admin: 11/03/18 03:22 Dose: 100 mls/hr Lactated Ringer's (Lactated Ringer's) 1,000 mls @ 75 mls/hr IV .[id number] NOVA Last Admin: 11/03/18 03:26 Dose: 75 mls/hr Insulin Human Lispro (Humalog) 0 units SC Q6H NOVA; Protocol Last Admin: 11/03/18 06:30 Dose: 4 unit Ondansetron HCl (Zofran Inj) 4 mg IVP Q6H PRN PRN Reason: Nausea/Vomiting Pantoprazole Sodium (Protonix Inj) 40 mg IVP DAILY NOVA Last Admin: 11/03/18 09:20 Dose: 40 mg Sennosides (Senokot Tab) 8.6 mg PO HS PRN PRN Reason: Constipation Tamsulosin HCl (Flomax) 0.4 mg PO DAILY NOVA Last Admin: 11/03/18 09:19 Dose: 0.4 mg - Labs Labs: 11/03/18 04:25 11/03/18 04:25 PT 28.2 Seconds (9.8-13.1) H 10/27/18 08:10 INR 2.5 10/27/18 08:10 APTT 30.8 Seconds (25.6-37.1) 10/27/18 08:10
--- NOTE | 2018-11-03 11:16 | CP.CCUPN ---
CCU Subjective - Physician Review Subjective (Free Text): 11/03/18 11:15 The patient was Seen/interviewed and examined by me at the bedside during ICU round, Medical records reviewed and Management issues were discussed and formulated with the house staff. Events reviewed Mr Angel is a 83 years old male with past medical history of hypertension and diabetes who was transferred to the emergency room with complaint of abdominal pain, also the patient neighbor state that the patient had an episode of unwitnessed loss of consciousness Abdominal CAT scan shows distended gallbladder with evidence of acute cholecystitis Labs noted for elevated lactate and code sepsis was called Blood culture was sent and empiric antibiotic with IV vancomycin and Zosyn he started Also aggressive IV hydration Patient was also evaluated by surgery in the emergency room, he is to be n.p.o. for OR in the morning Left femoral central line was placed for borderline blood pressure Patient admitted to the ICU for further management of severe sepsis from Cholecystitis 10/27/18, He underwent 8 Fr Perc. cholecystostomy tube placement Patient clinically improving hemodynamically improving, has been off levophed over the last 48 hours Patient awake comfortable, in no apparent distress Adequate saturation of 98-99% Patient sitting comfortable in a chair NG tube was removed Peripheral IV placed and central line was removed yesterday Afebrile, NSR on the monitor, Cardiology consulted for Tachycardia what seems on the monitor to be PAF Last 24H I&O 2585/920 This morning labs revealed Leucocytosis trending down, renal function continued to improve BUN/Cr up to 32/1.4-->28/1.4 CCU Objective - Vital Signs / Intake & Output Vital Signs (Last 4 hours): Vital Signs Temp Pulse Resp BP Pulse Ox 11/03/18 07:38 98.6 F 86 24 110/62 100 Intake and Output (Last 8hrs): Intake & Output 11/02/18 11/03/18 11/03/18 22:59 06:59 14:59 Intake Total 1615 750 Output Total 780 280 Balance 835 470 Weight 180 lb Intake: IV 1125 600 Intake, Piggyback 100 100 Oral 390 0 Tube Feeding 50 Output: Gastric Amount 50 Nares 50 Drainage 30 30 Right Lower Abdomen 30 Right Upper Abdomen 30 Urine 700 250 Urine, Voided 700 250 Other: # Voids Urine, Voided 1 1 - Physical Exam Head: Positive for: Atraumatic Pupils: Positive for: PERRL Mouth: Positive for: Moist Mucous Membranes Nose (External): Positive for: Atraumatic Respiratory/Chest: Positive for: Clear to Auscultation Cardiovascular: Positive for: Regular Rate and Rhythm Abdomen: Positive for: Distention (mild), Normal Bowel Sounds. Negative for: Tenderness Upper Extremity: Positive for: Normal Inspection Lower Extremity: Negative for: Edema Neurological: Positive for: Speech Normal Skin: Positive for: Normal Color Psychiatric: Positive for: Alert - Medications Active Medications: Active Medications Generic Name Dose Route Start Last Admin Trade Name Freq PRN Reason Stop Dose Admin Acetaminophen 650 mg 10/27/18 06:41 Tylenol 325mg Tab PO Q6H PRN Pain, moderate (4-7) Acetaminophen 650 mg 10/27/18 06:41 Tylenol 325mg Tab PO Q6H PRN Fever >100.4 F Albuterol Sulfate 2.5 mg 10/27/18 06:41 11/02/18 05:29 Albuterol 0.083% Inhal Mary (2.5 Mg/3 Ml) Ud IH 2.5 mg RQ2 PRN Administration Shortness of Breath Dextrose 0 ml 10/27/18 06:44 Dextrose 50% Inj IV STAT PRN Hypoglycemia Protocol Protocol Dextrose 0 gm 10/27/18 06:44 Glutose 15 PO ONCE PRN Hypoglycemia Protocol Protocol Gabapentin 300 mg 10/27/18 22:00 11/02/18 21:05 Neurontin PO 300 mg HS NOVA Administration Glucagon 0 mg 10/27/18 06:44 Glucagen Diagnostic Kit IM STAT PRN Hypoglycemia Protocol Protocol Heparin Sodium (Porcine) 5,000 units 10/26/18 21:00 11/03/18 09:19 Heparin SC 5,000 units Q12 NOVA Administration Protocol Meropenem 1 gm/ Sodium 100 mls @ 100 mls/hr 10/31/18 16:15 11/03/18 03:22 Chloride IVPB 100 mls/hr Q12H NOVA Administration Protocol Lactated Ringer's 1,000 mls @ 75 mls/hr 10/31/18 16:15 11/03/18 03:26 Lactated Ringer's IV 75 mls/hr .[id number] NOVA Administration Insulin Human Lispro 0 units 10/31/18 12:00 11/03/18 06:30 Humalog SC 4 unit Q6H NOVA Administration Protocol Ondansetron HCl 4 mg 10/27/18 06:41 Zofran Inj IVP Q6H PRN Nausea/Vomiting Pantoprazole Sodium 40 mg 10/27/18 09:00 11/03/18 09:20 Protonix Inj IVP 40 mg DAILY NOVA Administration Sennosides 8.6 mg 10/27/18 06:41 Senokot Tab PO HS PRN Constipation Tamsulosin HCl 0.4 mg 10/29/18 11:30 11/03/18 09:19 Flomax PO 0.4 mg DAILY NOVA Administration - Patient Studies Lab Studies: Microbiology Studies 10/30/18 04:30 Blood Culture - Preliminary Blood NO GROWTH AFTER 4 DAYS 10/30/18 04:20 Blood Culture - Preliminary Blood NO GROWTH AFTER 4 DAYS Lab Studies 11/03/18 11/03/18 Range/Units 04:25 04:25 WBC 10.6 (4.8-10.8) K/uL RBC 3.80 L (4.40-5.90) Mil/uL Hgb 11.3 L (12.0-18.0) g/dL Hct 33.8 L (35.0-51.0) % MCV 89.1 (80.0-94.0) fl MCH 29.7 (27.0-31.0) pg MCHC 33.3 (33.0-37.0) g/dL RDW 15.0 H (11.5-14.5) % Plt Count 219 (130-400) K/uL Sodium 136 (132-148) mmol/l Potassium 4.6 (3.6-5.0) MMOL/L Chloride 103 (98-107) mmol/L Carbon Dioxide 26 (22-30) mmol/L Anion Gap 12 (10-20) BUN 28 H (9-20) mg/dl Creatinine 1.4 (0.8-1.5) mg/dl Est GFR ( Amer) 59 Est GFR (Non-Af Amer) 48 Random Glucose 237 H (75-110) mg/dL Calcium 7.8 L (8.4-10.2) mg/dL Laboratory Results - last 24 hr 11/03/18 11/03/18 04:25 04:25 WBC 10.6 RBC 3.80 L Hgb 11.3 L Hct 33.8 L MCV 89.1 MCH 29.7 MCHC 33.3 RDW 15.0 H Plt Count 219 Sodium 136 Potassium 4.6 Chloride 103 Carbon Dioxide 26 Anion Gap 12 BUN 28 H Creatinine 1.4 Est GFR ( Amer) 59 Est GFR (Non-Af Amer) 48 Random Glucose 237 H Calcium 7.8 L Radiology Impressions: Radiology Impressions Abdomen X-Ray 11/02/18 08:51 IMPRESSION: No acute or significant findings related to/ accounting for the clinical presentation. Additional benign and/or incidental findings described above. No significant interval change compared to the prior examination(s). Fingerstick Blood Sugar Results: 246 Critical Care Progress Note - Nutrition Nutrition: Nutrition Category Date Time Status Consistent Carbohydrate [DIET] Diets 11/01/18 Dinner Active Assessment/Plan (1) Acalculous cholecystitis Current Visit: Yes Status: Acute Priority: High Comment: US showed distended GB with wall thickening. Cholangiogram showed patent cystic duct. 10/27 underwent Perc. cholecystostomy tube placement Continue ntibiotics with Meropenem 1 gm IVPB Q12H NOVA Pain control with PRN Tylenol OOB to chair (2) Severe sepsis Current Visit: Yes Status: Acute Priority: High (3) Cholecystitis Current Visit: Yes Status: Acute Priority: High (4) Uncontrolled diabetes mellitus Current Visit: Yes Status: Acute Priority: High
--- NOTE | 2018-11-03 11:44 | CP.PCM.PN ---
Subjective - Date & Time of Evaluation Date of Evaluation: 10/28/18 Time of Evaluation: 13:00 - Subjective Subjective: no overnight events Objective - Vital Signs/Intake and Output Vital Signs (last 24 hours): Temp Pulse Resp BP Pulse Ox 98.6 F 86 24 110/62 100 11/03/18 07:38 11/03/18 07:38 11/03/18 07:38 11/03/18 07:38 11/03/18 07:38 Intake and Output: 11/03/18 11/03/18 06:59 18:59 Intake Total 1125 Output Total 380 Balance 745 - Medications Medications: Current Medications Acetaminophen (Tylenol 325mg Tab) 650 mg PO Q6H PRN PRN Reason: Pain, moderate (4-7) Acetaminophen (Tylenol 325mg Tab) 650 mg PO Q6H PRN PRN Reason: Fever >100.4 F Albuterol Sulfate (Albuterol 0.083% Inhal Mary (2.5 Mg/3 Ml) Ud) 2.5 mg IH RQ2 PRN PRN Reason: Shortness of Breath Last Admin: 11/02/18 05:29 Dose: 2.5 mg Dextrose (Dextrose 50% Inj) 0 ml IV STAT PRN; Protocol PRN Reason: Hypoglycemia Protocol Dextrose (Glutose 15) 0 gm PO ONCE PRN; Protocol PRN Reason: Hypoglycemia Protocol Gabapentin (Neurontin) 300 mg PO HS NOVA Last Admin: 11/02/18 21:05 Dose: 300 mg Glucagon (Glucagen Diagnostic Kit) 0 mg IM STAT PRN; Protocol PRN Reason: Hypoglycemia Protocol Heparin Sodium (Porcine) (Heparin) 5,000 units SC Q12 NOVA; Protocol Last Admin: 11/03/18 09:19 Dose: 5,000 units Meropenem 1 gm/ Sodium (Chloride) 100 mls @ 100 mls/hr IVPB Q12H NOVA; Protocol Last Admin: 11/03/18 03:22 Dose: 100 mls/hr Lactated Ringer's (Lactated Ringer's) 1,000 mls @ 75 mls/hr IV .[id number] NOVA Last Admin: 11/03/18 03:26 Dose: 75 mls/hr Insulin Human Lispro (Humalog) 0 units SC Q6H NOVA; Protocol Last Admin: 11/03/18 06:30 Dose: 4 unit Ondansetron HCl (Zofran Inj) 4 mg IVP Q6H PRN PRN Reason: Nausea/Vomiting Pantoprazole Sodium (Protonix Inj) 40 mg IVP DAILY [facility] Last Admin: 11/03/18 09:20 Dose: 40 mg Sennosides (Senokot Tab) 8.6 mg PO HS PRN PRN Reason: Constipation Tamsulosin HCl (Flomax) 0.4 mg PO DAILY [facility] Last Admin: 11/03/18 09:19 Dose: 0.4 mg - Labs Labs: 11/03/18 04:25 11/03/18 04:25 PT 28.2 Seconds (9.8-13.1) H 10/27/18 08:10 INR 2.5 10/27/18 08:10 APTT 30.8 Seconds (25.6-37.1) 10/27/18 08:10 - Neck Exam Neck Exam: Normal Inspection - Respiratory Exam Respiratory Exam: Clear to Ausculation Bilateral, NORMAL BREATHING PATTERN - Cardiovascular Exam Cardiovascular Exam: REGULAR RHYTHM - GI/Abdominal Exam GI & Abdominal Exam: Soft, Tenderness, Normal Bowel Sounds Assessment and Plan - Assessment and Plan (Free Text) Assessment: 83 yo male with cholecystitis perc joshua abx surgical evaluation
--- NOTE | 2018-11-03 13:15 | CP.PCM.PN ---
Subjective - Date & Time of Evaluation Date of Evaluation: 11/03/18 Time of Evaluation: 08:00 - Subjective Subjective: awake alert NAD denies fever or abdominal pain' no chest pain or SOB Objective - Vital Signs/Intake and Output Vital Signs (last 24 hours): Temp Pulse Resp BP Pulse Ox 98.1 F 86 26 H 114/69 100 11/03/18 11:44 11/03/18 11:44 11/03/18 11:44 11/03/18 11:44 11/03/18 11:44 Intake and Output: 11/03/18 11/03/18 06:59 18:59 Intake Total 1125 Output Total 380 Balance 745 - Medications Medications: Current Medications Acetaminophen (Tylenol 325mg Tab) 650 mg PO Q6H PRN PRN Reason: Pain, moderate (4-7) Acetaminophen (Tylenol 325mg Tab) 650 mg PO Q6H PRN PRN Reason: Fever >100.4 F Albuterol Sulfate (Albuterol 0.083% Inhal Mary (2.5 Mg/3 Ml) Ud) 2.5 mg IH RQ2 PRN PRN Reason: Shortness of Breath Last Admin: 11/02/18 05:29 Dose: 2.5 mg Dextrose (Dextrose 50% Inj) 0 ml IV STAT PRN; Protocol PRN Reason: Hypoglycemia Protocol Dextrose (Glutose 15) 0 gm PO ONCE PRN; Protocol PRN Reason: Hypoglycemia Protocol Gabapentin (Neurontin) 300 mg PO HS NOVA Last Admin: 11/02/18 21:05 Dose: 300 mg Glucagon (Glucagen Diagnostic Kit) 0 mg IM STAT PRN; Protocol PRN Reason: Hypoglycemia Protocol Heparin Sodium (Porcine) (Heparin) 5,000 units SC Q12 NOVA; Protocol Last Admin: 11/03/18 09:19 Dose: 5,000 units Meropenem 1 gm/ Sodium (Chloride) 100 mls @ 100 mls/hr IVPB Q12H NOVA; Protocol Last Admin: 11/03/18 03:22 Dose: 100 mls/hr Lactated Ringer's (Lactated Ringer's) 1,000 mls @ 75 mls/hr IV .[id number] NOVA Last Admin: 11/03/18 11:48 Dose: 75 mls/hr Insulin Human Lispro (Humalog) 0 units SC Q6H NOVA; Protocol Last Admin: 11/03/18 11:46 Dose: 8 unit Ondansetron HCl (Zofran Inj) 4 mg IVP Q6H PRN PRN Reason: Nausea/Vomiting Pantoprazole Sodium (Protonix Inj) 40 mg IVP DAILY [facility] Last Admin: 11/03/18 09:20 Dose: 40 mg Sennosides (Senokot Tab) 8.6 mg PO HS PRN PRN Reason: Constipation Tamsulosin HCl (Flomax) 0.4 mg PO DAILY [facility] Last Admin: 11/03/18 09:19 Dose: 0.4 mg - Labs Labs: 11/03/18 04:25 11/03/18 04:25 PT 28.2 Seconds (9.8-13.1) H 10/27/18 08:10 INR 2.5 10/27/18 08:10 APTT 30.8 Seconds (25.6-37.1) 10/27/18 08:10 - Constitutional Appears: Non-toxic, Chronically Ill - Head Exam Head Exam: ATRAUMATIC, NORMAL INSPECTION, NORMOCEPHALIC - Eye Exam Eye Exam: EOMI, Normal appearance, PERRL Pupil Exam: NORMAL ACCOMODATION, PERRL - ENT Exam ENT Exam: Mucous Membranes Moist, Normal Exam - Neck Exam Neck Exam: Full ROM, Normal Inspection. absent: Lymphadenopathy - Respiratory Exam Respiratory Exam: Clear to Ausculation Bilateral, NORMAL BREATHING PATTERN - Cardiovascular Exam Cardiovascular Exam: REGULAR RHYTHM, +S1, +S2. absent: Murmur - GI/Abdominal Exam GI & Abdominal Exam: Distended, Soft, Normal Bowel Sounds. absent: Tenderness - Rectal Exam Rectal Exam: Deferred - Exam Exam: NORMAL INSPECTION - Extremities Exam Extremities Exam: Full ROM, Normal Capillary Refill, Normal Inspection. absent: Joint Swelling, Pedal Edema - Back Exam Back Exam: NORMAL INSPECTION - Neurological Exam Neurological Exam: Alert, Awake, CN II-XII Intact, Normal Gait, Oriented x3 - Psychiatric Exam Psychiatric exam: Normal Affect, Normal Mood - Skin Skin Exam: Dry, Intact, Normal Color, Warm Assessment and Plan (1) SOO (acute kidney injury) Status: Acute (2) Cholecystitis Status: Acute (3) Severe sepsis Status: Acute (4) Uncontrolled diabetes mellitus Status: Acute - Assessment and Plan (Free Text) Assessment: s/p cholecystotomy E Coli in blood and fluid will need 14 days total rx
--- NOTE | 2018-11-03 23:14 | CON ---
DATE: 10/27/2018 REFERRING PHYSICIAN: Vicente Jacobo MD REASON FOR CONSULTATION: Abdominal pain and sepsis. HISTORY OF PRESENT ILLNESS: This is a pleasant 83-year-old male with history of diabetes, urinary retention, brought in for abdominal pain, suspect cholecystitis. The patient has had abdominal pain on and off for past four days in the right upper quadrant pain, radiation to the back, fevers, chills, and dizziness. Currently, the patient is just status post percutaneous cholecystostomy. Now currently lying in bed with minimal pain, some nausea, and no fevers. PAST MEDICAL HISTORY: As above. PAST SURGICAL HISTORY: As above. MEDICATIONS: Has been reviewed. REVIEW OF SYSTEMS: All other systems have been reviewed and negative apart from the HPI. PHYSICAL EXAMINATION: VITAL SIGNS: Here in the hospital are grossly unremarkable. GENERAL: A pleasant elderly appearing female, lying in bed comfortable, in no apparent distress. HEENT: Head: Normocephalic and atraumatic. Eyes: Pupils are equally reactive to light bilaterally. No conjunctival pallor or icterus. NECK: Supple. Normal range of motion. No lymphadenopathy appreciated. LUNGS: Coarse breath sounds bilaterally. HEART: S1 and S2. Regular rate and rhythm. No murmurs appreciated. ABDOMEN: Soft, nontender. Bowel sounds present. Some discomfort. No rebound. No guarding. RECTAL: Deferred. EXTREMITIES: Pulses felt bilaterally. SKIN: Warm, dry, and intact. NEUROLOGIC: Alert and oriented x3. LABORATORY DATA: Labs and radiology have been reviewed. WBC is 15.9, hemoglobin 12.7, hematocrit 38.2. Sugars are 315. Bilirubin is 5.4. Alk phos 208. AST and ALT within normal limits. Abdominal ultrasound shows distended gallbladder, thickened gallbladder wall sludge. ASSESSMENT AND PLAN: This is an 83-year-old man with what looks like cholecystitis. Percutaneous cholecystostomy is the plan. Surgical consult is appreciated. Antibiotics for now. Prognosis is guarded. We will follow the patient with you. Thank you for the consult. Dave Farias MD/ PhD cc: Vicente Jacobo MD
[2018-11-04] MEDS: Meropenem 1 GM in Sodium Chloride 0.9% 100 ML IVPB SCH ×2 (03:21→16:28)
[2018-11-04] MEDS: Albuterol 0.083% Inhal Sol (2.5 mg/3 mL) UD IH PRN (05:54)
[2018-11-04] MEDS: Insulin Lispro (humaLOG) 100 Units/ml Inj SC SCH ×4 (05:59→23:33)
--- NOTE | 2018-11-04 06:38 | CP.PCM.PN ---
<Randy Hughes - Last Filed: 11/04/18 10:14> Subjective - Date & Time of Evaluation Date of Evaluation: 11/04/18 Time of Evaluation: 06:38 - Subjective Subjective: Patient seen and examined this morning with Dr Jacobo, no overnight events, noted sleepy, denies abdominal pain at this time. Per nurse pt having frequent cough with white flegm and noted with mild sob. Afebrile Objective - Vital Signs/Intake and Output Vital Signs (last 24 hours): Temp Pulse Resp BP Pulse Ox 98.4 F 86 27 H 111/71 98 11/04/18 00:30 11/04/18 06:00 11/04/18 06:00 11/04/18 06:00 11/04/18 06:00 Intake and Output: 11/03/18 11/04/18 18:59 06:59 Intake Total 1360 1020 Output Total 435 390 Balance 925 630 - Medications Medications: Current Medications Acetaminophen (Tylenol 325mg Tab) 650 mg PO Q6H PRN PRN Reason: Pain, moderate (4-7) Acetaminophen (Tylenol 325mg Tab) 650 mg PO Q6H PRN PRN Reason: Fever >100.4 F Albuterol Sulfate (Albuterol 0.083% Inhal Mary (2.5 Mg/3 Ml) Ud) 2.5 mg IH RQ2 PRN PRN Reason: Shortness of Breath Last Admin: 11/04/18 05:54 Dose: 2.5 mg Dextrose (Dextrose 50% Inj) 0 ml IV STAT PRN; Protocol PRN Reason: Hypoglycemia Protocol Dextrose (Glutose 15) 0 gm PO ONCE PRN; Protocol PRN Reason: Hypoglycemia Protocol Gabapentin (Neurontin) 300 mg PO HS [facility] Last Admin: 11/03/18 21:03 Dose: 300 mg Glucagon (Glucagen Diagnostic Kit) 0 mg IM STAT PRN; Protocol PRN Reason: Hypoglycemia Protocol Heparin Sodium (Porcine) (Heparin) 5,000 units SC Q12 [facility]; Protocol Last Admin: 11/03/18 20:43 Dose: 5,000 units Meropenem 1 gm/ Sodium (Chloride) 100 mls @ 100 mls/hr IVPB Q12H [facility]; Protocol Last Admin: 11/04/18 03:21 Dose: 100 mls/hr Lactated Ringer's (Lactated Ringer's) 1,000 mls @ 75 mls/hr IV .[id number] [facility] Last Admin: 11/03/18 11:48 Dose: 75 mls/hr Insulin Human Lispro (Humalog) 0 units SC Q6H [facility]; Protocol Last Admin: 11/04/18 05:59 Dose: 8 unit Ondansetron HCl (Zofran Inj) 4 mg IVP Q6H PRN PRN Reason: Nausea/Vomiting Pantoprazole Sodium (Protonix Inj) 40 mg IVP DAILY [facility] Last Admin: 11/03/18 09:20 Dose: 40 mg Sennosides (Senokot Tab) 8.6 mg PO HS PRN PRN Reason: Constipation Tamsulosin HCl (Flomax) 0.4 mg PO DAILY [facility] Last Admin: 11/03/18 09:19 Dose: 0.4 mg - Labs Labs: 11/03/18 04:25 11/03/18 04:25 PT 28.2 Seconds (9.8-13.1) H 10/27/18 08:10 INR 2.5 10/27/18 08:10 APTT 30.8 Seconds (25.6-37.1) 10/27/18 08:10 - Constitutional Appears: Non-toxic, No Acute Distress - Head Exam Head Exam: NORMAL INSPECTION - Eye Exam Eye Exam: EOMI, PERRL - ENT Exam ENT Exam: Mucous Membranes Moist - Respiratory Exam Respiratory Exam: Decreased Breath Sounds, Rhonchi (scatered). absent: Accessory Muscle Use, Chest Wall Tenderness, Prolonged Expiratory Phase, Rales, Stridor - Cardiovascular Exam Cardiovascular Exam: REGULAR RHYTHM, +S1, +S2. absent: Murmur - GI/Abdominal Exam GI & Abdominal Exam: Distended, Soft, Normal Bowel Sounds. absent: Tenderness Additional comments: COLTEN drain noted with bilius like input - Exam Exam: Scrotal Swelling. absent: Testicular Tenderness, Uretheral Discharge - Extremities Exam Extremities Exam: absent: Calf Tenderness, Pedal Edema - Neurological Exam Neurological Exam: Alert, Awake, Oriented x3 - Psychiatric Exam Psychiatric exam: Normal Mood - Skin Skin Exam: Intact, Warm Assessment and Plan - Assessment and Plan (Free Text) Assessment: 83 y/o M with PMH of HTN, DM-II and urinary retention admitted to [facility] for evaluation and treatment of Sepsis/Cholecystitis. Stable waiting for transfer to the floor Plan: SOB/Cough - s/p duonebs - f/u CXR - afebrile - encouraged IS Gram negative septicemia/cholecystitis - blood cx negative for 76 hrs - Leucocytosis resolved - renal function continued to improve BUN/Cr up to 28/1.4 - Elevated Bili - General surgery and GI on board, input appreciated - C/w IVF, zofran and pain management - C/w IV abx, will need 14 days total per ID recs. HTN, chronic, controlled - BP held due to hypotension - Cardiology consulted for tachycardia noted on the monitor, recs appreciated DM-II, chronic, uncontrolled - C/w Slididng scale insulin/hypoglycemic protocol - Accu checks Q8H DVT PPX - Heparin q12 Rest of plan as ordered Case discussed with Dr. Jacobo. <Vicente Jacobo - Last Filed: 11/05/18 08:07> Objective - Vital Signs/Intake and Output Vital Signs (last 24 hours): Temp Pulse Resp BP Pulse Ox 97.8 F 77 19 91/67 L 100 11/05/18 00:47 11/05/18 05:00 11/05/18 05:00 11/05/18 05:00 11/05/18 05:00 Intake and Output: 11/04/18 11/05/18 23:59 11:59 Intake Total 350 100 Output Total 290 260 Balance 60 -160 - Medications Medications: Current Medications Acetaminophen (Tylenol 325mg Tab) 650 mg PO Q6H PRN PRN Reason: Pain, moderate (4-7) Acetaminophen (Tylenol 325mg Tab) 650 mg PO Q6H PRN PRN Reason: Fever >100.4 F Albuterol Sulfate (Albuterol 0.083% Inhal Mary (2.5 Mg/3 Ml) Ud) 2.5 mg IH RQ2 PRN PRN Reason: Shortness of Breath Last Admin: 11/04/18 05:54 Dose: 2.5 mg Dextrose (Dextrose 50% Inj) 0 ml IV STAT PRN; Protocol PRN Reason: Hypoglycemia Protocol Dextrose (Glutose 15) 0 gm PO ONCE PRN; Protocol PRN Reason: Hypoglycemia Protocol Gabapentin (Neurontin) 300 mg PO HS NOVA Last Admin: 11/04/18 21:58 Dose: 300 mg Glucagon (Glucagen Diagnostic Kit) 0 mg IM STAT PRN; Protocol PRN Reason: Hypoglycemia Protocol Guaifenesin/Dextromethorphan (Mucinex-Dm 600-30 Mg) 1 tab PO BID [facility] Last Admin: 11/04/18 16:29 Dose: 1 tab Heparin Sodium (Porcine) (Heparin) 5,000 units SC Q12 [facility]; Protocol Last Admin: 11/04/18 21:57 Dose: 5,000 units Meropenem 1 gm/ Sodium (Chloride) 100 mls @ 100 mls/hr IVPB Q12H [facility]; Protocol Last Admin: 11/05/18 04:54 Dose: 100 mls/hr Insulin Detemir (Levemir) 6 units SC HS [facility] Insulin Human Lispro (Humalog) 0 units SC Q6H [facility]; Protocol Last Admin: 11/05/18 06:28 Dose: 4 unit Ondansetron HCl (Zofran Inj) 4 mg IVP Q6H PRN PRN Reason: Nausea/Vomiting Pantoprazole Sodium (Protonix Inj) 40 mg IVP DAILY [facility] Last Admin: 11/04/18 08:57 Dose: 40 mg Sennosides (Senokot Tab) 8.6 mg PO HS [facility] Last Admin: 11/04/18 21:57 Dose: 8.6 mg Tamsulosin HCl (Flomax) 0.4 mg PO DAILY [facility] Last Admin: 11/04/18 08:53 Dose: 0.4 mg - Labs Labs: 11/05/18 04:00 11/05/18 04:25 PT 28.2 Seconds (9.8-13.1) H 10/27/18 08:10 INR 2.5 10/27/18 08:10 APTT 30.8 Seconds (25.6-37.1) 10/27/18 08:10 Assessment and Plan - Assessment and Plan (Free Text) Assessment: Patient was personally seen and examined by me in rounds with residents. Available labs and diagnostic data reviewed. Case, Patient's condition and management plan discussed with residents in rounds. Agree with resident's progress note. Plan: As ordered.
--- NOTE | 2018-11-04 10:57 | RAD ---
Date of service: 11/04/2018 PROCEDURE: CHEST RADIOGRAPH, 1 VIEW HISTORY: sob COMPARISON: 11/02/2018 FINDINGS: LUNGS: Clear. PLEURA: Small right pleural effusion. Trace left pleural effusion. No pneumothorax. CARDIOVASCULAR: No aortic atherosclerotic calcification present. Normal. OSSEOUS STRUCTURES: No significant abnormalities. VISUALIZED UPPER ABDOMEN: Normal. OTHER FINDINGS: None. IMPRESSION: Bilateral small pleural effusion, right greater than left. Nasogastric tube has been removed.
[2018-11-04] MEDS: guaiFENesin-DM 600-30 mg ER Tab PO SCH ×2 (11:45→16:29)
--- NOTE | 2018-11-04 15:40 | CP.PCM.PN ---
Subjective - Date & Time of Evaluation Date of Evaluation: 11/04/18 Time of Evaluation: 15:38 - Subjective Subjective: Nephrology Consultation Note Assessment: stbale Acute Kidney Injury (N17.9) likely due to ATN/pre-renal state/sepsis Diabetic chronic Kidney Disease (E11.22) Hypertensive Chronic Kidney Disease (I12.9) Chronic Kidney Disease (N18.3) Stage 3 with baseline cr 1.3 E coli sepsis with acute cholecystitis lactic acidosis Plan renal function improved likely now at baseline bp controlled agree with lasix 20 mg 1-2 times/day as tolerate dby BP Monitor Input/Output, daily weights and renal function with basic metabolic panel f/u surgery Dose meds/antibiotics for GFR Glycemic control per primary team Further work up for as per primary team. d/w ICU team and family Subjective: seen and examined denies n/v still w/ abdominal distension c/o legs swelling Physical Examination: General Appearance: Comfortable, in no acute respiratory distress, co-operative . Vitals reviewed and noted as below Head; Atraumatic, normocephalic ENT: no ulcers no thrush. Tongue is midline. Oropharynx: no rash or ulcers. EYES: Pupils are equal, round and reactive to light accommodation. Eye muscles and extraocular movement intact. Sclera is icteric. Neck; supple no lymphadenopathy, no thyromegaly or bruit Lungs: Normal respiratory rate/effort. Breath sounds bilateral reduced at bases with crackles Heart: Normal rate. s1s2 normal. No rub or gallop. Extremities: 1+ edema. No varicose veins Neurological: Patient is alert, awake and oriented to person, place and time. No focal deficit. Strength bilateral appropriate and equal Skin: Warm and dry. Normal turgor. No rash. Palpitation: Normal elasticity for age Abdomen: Abdomen is soft but distended. Bowel sounds +. Psych: normal insight and normal affect/mood MSK: no joint tenderness or swelling. Digits and nails normal, no deformity : kidney or bladder not palpable Labs/imaging reviewed. Past medical history, past surgical history, family history, social history, allergy reviewed and noted as below Family hx: no hx of CKD. Rest non-contributory Objective - Vital Signs/Intake and Output Vital Signs (last 24 hours): Temp Pulse Resp BP Pulse Ox 98 F 88 13 96/58 L 98 11/04/18 11:43 11/04/18 11:43 11/04/18 11:43 11/04/18 11:43 11/04/18 08:08 Intake and Output: 11/04/18 11/04/18 06:59 18:59 Intake Total 1020 100 Output Total 390 600 Balance 630 -500 - Medications Medications: Current Medications Acetaminophen (Tylenol 325mg Tab) 650 mg PO Q6H PRN PRN Reason: Pain, moderate (4-7) Acetaminophen (Tylenol 325mg Tab) 650 mg PO Q6H PRN PRN Reason: Fever >100.4 F Albuterol Sulfate (Albuterol 0.083% Inhal Mary (2.5 Mg/3 Ml) Ud) 2.5 mg IH RQ2 PRN PRN Reason: Shortness of Breath Last Admin: 11/04/18 05:54 Dose: 2.5 mg Dextrose (Dextrose 50% Inj) 0 ml IV STAT PRN; Protocol PRN Reason: Hypoglycemia Protocol Dextrose (Glutose 15) 0 gm PO ONCE PRN; Protocol PRN Reason: Hypoglycemia Protocol Gabapentin (Neurontin) 300 mg PO HS [facility] Last Admin: 11/03/18 21:03 Dose: 300 mg Glucagon (Glucagen Diagnostic Kit) 0 mg IM STAT PRN; Protocol PRN Reason: Hypoglycemia Protocol Guaifenesin/Dextromethorphan (Mucinex-Dm 600-30 Mg) 1 tab PO BID [facility] Last Admin: 11/04/18 11:45 Dose: 1 tab Heparin Sodium (Porcine) (Heparin) 5,000 units SC Q12 [facility]; Protocol Last Admin: 11/04/18 08:54 Dose: 5,000 units Meropenem 1 gm/ Sodium (Chloride) 100 mls @ 100 mls/hr IVPB Q12H [facility]; Protocol Last Admin: 11/04/18 03:21 Dose: 100 mls/hr Lactated Ringer's (Lactated Ringer's) 1,000 mls @ 75 mls/hr IV .[id number] [facility] Last Admin: 11/03/18 11:48 Dose: 75 mls/hr Insulin Detemir (Levemir) 4 units SC HS [facility] Insulin Human Lispro (Humalog) 0 units SC Q6H [facility]; Protocol Last Admin: 11/04/18 11:44 Dose: 6 unit Ondansetron HCl (Zofran Inj) 4 mg IVP Q6H PRN PRN Reason: Nausea/Vomiting Pantoprazole Sodium (Protonix Inj) 40 mg IVP DAILY [facility] Last Admin: 11/04/18 08:57 Dose: 40 mg Sennosides (Senokot Tab) 8.6 mg PO [facility] Tamsulosin HCl (Flomax) 0.4 mg PO DAILY [facility] Last Admin: 11/04/18 08:53 Dose: 0.4 mg - Labs Labs: 11/03/18 04:25 11/03/18 04:25 PT 28.2 Seconds (9.8-13.1) H 10/27/18 08:10 INR 2.5 10/27/18 08:10 APTT 30.8 Seconds (25.6-37.1) 10/27/18 08:10
[2018-11-04] MEDS ORDERED: Insulin Detemir 100 Units/ml Inj SC SCH (22:00)
[2018-11-05] MEDS: Meropenem 1 GM in Sodium Chloride 0.9% 100 ML IVPB SCH ×2 (04:54→16:15)
[2018-11-05 05:37] LABS: BASO % 0.4 % (0.0-2.0); EOS # 0.3 K/uL (0.0-0.7); HEMOGLOBIN 11.8 g/dL (12.0-18.0); LYMPH # 0.8 K/uL (1.0-4.3); LYMPH % 8.4 % (20.0-40.0); MEAN CORPUSCULAR HGB CONC 33.7 g/dL (33.0-37.0); MEAN PLATELET VOLUME 11.3 fl (7.2-11.7); MONO # 0.7 K/uL (0.0-0.8); MONO % 7.6 % (0.0-10.0); NEUT # 7.7 K/uL (1.8-7.0); NEUT % 80.6 % (50.0-75.0); NRBC % 0.1 % (0.0-0.0); PLATELET COUNT 279 K/uL (130-400); RBC 3.93 Mil/uL (4.40-5.90); RED CELL DISTRIBUTION WIDTH 15.3 % (11.5-14.5); WHITE BLOOD COUNT 9.6 K/uL (4.8-10.8)
[2018-11-05 06:06] LABS: ALB/GLOB RATIO 0.9 (1.0-2.1); ALBUMIN 2.5 g/dL (3.5-5.0); ALT/SGPT 37 U/L (21-72); AST/SGOT 33 U/L (17-59); BLOOD UREA NITROGEN 24 mg/dl (9-20); CALCIUM 7.8 mg/dL (8.4-10.2); GFR NON-AFRICAN AMERICAN 58
[2018-11-05] MEDS: Insulin Lispro (humaLOG) 100 Units/ml Inj SC SCH ×3 (06:28→17:08)
--- NOTE | 2018-11-05 06:55 | CP.PCM.PN ---
<Randy Hughes - Last Filed: 11/05/18 11:32> Subjective - Date & Time of Evaluation Date of Evaluation: 11/05/18 Time of Evaluation: 06:55 - Subjective Subjective: Patient seen and examined this morning with Dr Jacobo, no overnight events, denies sob, cough or abdominal pain at this time. No overnight events noted Normal BM this am, tolerating PO, stable to transfer from ICU. Objective - Vital Signs/Intake and Output Vital Signs (last 24 hours): Temp Pulse Resp BP Pulse Ox 97.8 F 77 19 91/67 L 100 11/05/18 00:47 11/05/18 05:00 11/05/18 05:00 11/05/18 05:00 11/05/18 05:00 Intake and Output: 11/04/18 11/05/18 18:59 06:59 Intake Total 350 200 Output Total 640 510 Balance -290 -310 - Medications Medications: Current Medications Acetaminophen (Tylenol 325mg Tab) 650 mg PO Q6H PRN PRN Reason: Pain, moderate (4-7) Acetaminophen (Tylenol 325mg Tab) 650 mg PO Q6H PRN PRN Reason: Fever >100.4 F Albuterol Sulfate (Albuterol 0.083% Inhal Mary (2.5 Mg/3 Ml) Ud) 2.5 mg IH RQ2 PRN PRN Reason: Shortness of Breath Last Admin: 11/04/18 05:54 Dose: 2.5 mg Dextrose (Dextrose 50% Inj) 0 ml IV STAT PRN; Protocol PRN Reason: Hypoglycemia Protocol Dextrose (Glutose 15) 0 gm PO ONCE PRN; Protocol PRN Reason: Hypoglycemia Protocol Gabapentin (Neurontin) 300 mg PO HS NOVA Last Admin: 11/04/18 21:58 Dose: 300 mg Glucagon (Glucagen Diagnostic Kit) 0 mg IM STAT PRN; Protocol PRN Reason: Hypoglycemia Protocol Guaifenesin/Dextromethorphan (Mucinex-Dm 600-30 Mg) 1 tab PO BID [facility] Last Admin: 11/04/18 16:29 Dose: 1 tab Heparin Sodium (Porcine) (Heparin) 5,000 units SC Q12 [facility]; Protocol Last Admin: 11/04/18 21:57 Dose: 5,000 units Meropenem 1 gm/ Sodium (Chloride) 100 mls @ 100 mls/hr IVPB Q12H [facility]; Protocol Last Admin: 11/05/18 04:54 Dose: 100 mls/hr Insulin Detemir (Levemir) 6 units SC [facility] Insulin Human Lispro (Humalog) 0 units SC Q6H [facility]; Protocol Last Admin: 11/05/18 06:28 Dose: 4 unit Ondansetron HCl (Zofran Inj) 4 mg IVP Q6H PRN PRN Reason: Nausea/Vomiting Pantoprazole Sodium (Protonix Inj) 40 mg IVP DAILY [facility] Last Admin: 11/04/18 08:57 Dose: 40 mg Sennosides (Senokot Tab) 8.6 mg PO [facility] Last Admin: 11/04/18 21:57 Dose: 8.6 mg Tamsulosin HCl (Flomax) 0.4 mg PO DAILY [facility] Last Admin: 11/04/18 08:53 Dose: 0.4 mg - Labs Labs: 11/05/18 04:00 11/05/18 04:25 PT 28.2 Seconds (9.8-13.1) H 10/27/18 08:10 INR 2.5 10/27/18 08:10 APTT 30.8 Seconds (25.6-37.1) 10/27/18 08:10 - Constitutional Appears: Non-toxic, No Acute Distress - Head Exam Head Exam: NORMAL INSPECTION - Eye Exam Eye Exam: EOMI, Normal appearance, PERRL - ENT Exam ENT Exam: Mucous Membranes Moist - Neck Exam Neck Exam: Full ROM, Normal Inspection. absent: Tenderness, Thyromegaly - Respiratory Exam Respiratory Exam: Clear to Ausculation Bilateral, NORMAL BREATHING PATTERN. absent: Chest Wall Tenderness, Decreased Breath Sounds, Respiratory Distress - Cardiovascular Exam Cardiovascular Exam: REGULAR RHYTHM, +S1, +S2. absent: Tachycardia - GI/Abdominal Exam GI & Abdominal Exam: Distended, Soft, Normal Bowel Sounds. absent: Guarding, Tenderness Additional comments: COLTEN drain noted in place, ~ 10 cc bilious like output - Extremities Exam Extremities Exam: absent: Calf Tenderness, Pedal Edema - Neurological Exam Neurological Exam: Alert, Awake, CN II-XII Intact, Oriented x3 - Skin Skin Exam: Dry, Warm Assessment and Plan - Assessment and Plan (Free Text) Assessment: 83 y/o M with PMH of HTN, DM-II and urinary retention admitted to [facility] for evaluation and treatment of Sepsis/Cholecystitis. Stable waiting for transfer to the floor Plan: SOB/Cough - improved - duonebs - afebrile - encouraged IS Gram negative septicemia/cholecystitis - blood cx negative for 76 hrs - Leucocytosis resolved - renal function continued to improve BUN/Cr up to 12/07.2 - General surgery and GI on board, input appreciated - C/w IVF, zofran and pain management - C/w IV abx, will need 14 days total per ID recs. HTN, chronic, controlled - BP held due to hypotension DM-II, chronic, uncontrolled - C/w Slididng scale insulin/hypoglycemic protocol - Accu checks Q8H DVT PPX - Heparin q12 Rest of plan as ordered Case discussed with Dr. Jacobo. <Vicente Jacobo - Last Filed: 11/10/18 16:50> Objective - Vital Signs/Intake and Output Vital Signs (last 24 hours): Temp Pulse Resp BP Pulse Ox 98.1 F 74 18 90/57 L 99 11/09/18 15:45 11/09/18 15:45 11/09/18 15:45 11/09/18 15:45 11/09/18 15:45 - Labs Labs: 11/09/18 05:30 11/09/18 05:30 PT 28.2 Seconds (9.8-13.1) H 10/27/18 08:10 INR 2.5 10/27/18 08:10 APTT 30.8 Seconds (25.6-37.1) 10/27/18 08:10 Assessment and Plan - Assessment and Plan (Free Text) Assessment: Patient was personally seen and examined by me in rounds with residents. Available labs and diagnostic data reviewed. Case, Patient's condition and management plan discussed with residents in rounds. Agree with resident's progress note. Plan: As ordered.
--- NOTE | 2018-11-05 07:40 | CP.PCM.PN ---
<Taco Ansari - Last Filed: 11/05/18 10:17> Subjective - Date & Time of Evaluation Date of Evaluation: 11/05/18 Time of Evaluation: 06:55 - Subjective Subjective: General Surgery Note for Dr. Marquez Patient seen and examined at bedside. No acute event overnight. Patient denies pain. He has been off levophed and hemodynamically stable. Patient tolerating diet. He is passing flatus and having BM. No complaints at this time. Objective - Vital Signs/Intake and Output Vital Signs (last 24 hours): Temp Pulse Resp BP Pulse Ox 97.8 F 77 19 91/67 L 100 11/05/18 00:47 11/05/18 05:00 11/05/18 05:00 11/05/18 05:00 11/05/18 05:00 Intake and Output: 11/05/18 11/05/18 06:59 18:59 Intake Total 200 Output Total 510 Balance -310 - Medications Medications: Current Medications Acetaminophen (Tylenol 325mg Tab) 650 mg PO Q6H PRN PRN Reason: Pain, moderate (4-7) Acetaminophen (Tylenol 325mg Tab) 650 mg PO Q6H PRN PRN Reason: Fever >100.4 F Albuterol Sulfate (Albuterol 0.083% Inhal Mary (2.5 Mg/3 Ml) Ud) 2.5 mg IH RQ2 PRN PRN Reason: Shortness of Breath Last Admin: 11/04/18 05:54 Dose: 2.5 mg Dextrose (Dextrose 50% Inj) 0 ml IV STAT PRN; Protocol PRN Reason: Hypoglycemia Protocol Dextrose (Glutose 15) 0 gm PO ONCE PRN; Protocol PRN Reason: Hypoglycemia Protocol Gabapentin (Neurontin) 300 mg PO HS [facility] Last Admin: 11/04/18 21:58 Dose: 300 mg Glucagon (Glucagen Diagnostic Kit) 0 mg IM STAT PRN; Protocol PRN Reason: Hypoglycemia Protocol Guaifenesin/Dextromethorphan (Mucinex-Dm 600-30 Mg) 1 tab PO BID [facility] Last Admin: 11/04/18 16:29 Dose: 1 tab Heparin Sodium (Porcine) (Heparin) 5,000 units SC Q12 [facility]; Protocol Last Admin: 11/04/18 21:57 Dose: 5,000 units Meropenem 1 gm/ Sodium (Chloride) 100 mls @ 100 mls/hr IVPB Q12H [facility]; Protocol Last Admin: 11/05/18 04:54 Dose: 100 mls/hr Insulin Detemir (Levemir) 6 units SC [facility] Insulin Human Lispro (Humalog) 0 units SC Q6H [facility]; Protocol Last Admin: 11/05/18 06:28 Dose: 4 unit Ondansetron HCl (Zofran Inj) 4 mg IVP Q6H PRN PRN Reason: Nausea/Vomiting Pantoprazole Sodium (Protonix Inj) 40 mg IVP DAILY [facility] Last Admin: 11/04/18 08:57 Dose: 40 mg Sennosides (Senokot Tab) 8.6 mg PO HS [facility] Last Admin: 11/04/18 21:57 Dose: 8.6 mg Tamsulosin HCl (Flomax) 0.4 mg PO DAILY [facility] Last Admin: 11/04/18 08:53 Dose: 0.4 mg - Labs Labs: 11/05/18 04:00 11/05/18 04:25 PT 28.2 Seconds (9.8-13.1) H 10/27/18 08:10 INR 2.5 10/27/18 08:10 APTT 30.8 Seconds (25.6-37.1) 10/27/18 08:10 - Constitutional Appears: No Acute Distress - Head Exam Head Exam: ATRAUMATIC, NORMOCEPHALIC - Eye Exam Eye Exam: EOMI, Normal appearance Pupil Exam: PERRL - ENT Exam ENT Exam: Mucous Membranes Moist - Cardiovascular Exam Cardiovascular Exam: REGULAR RHYTHM - GI/Abdominal Exam GI & Abdominal Exam: Soft, Normal Bowel Sounds. absent: Tenderness Additional comments: cholecystostomy tube in place - Extremities Exam Extremities Exam: Normal Capillary Refill - Neurological Exam Neurological Exam: Alert, Awake - Psychiatric Exam Psychiatric exam: Normal Affect, Normal Mood - Skin Skin Exam: Dry, Intact, Warm Assessment and Plan - Assessment and Plan (Free Text) Assessment: 83M with acute cholecystitis s/p cholecystostomy tube Plan: -Reg diet -No further surgical intervention needed at this time -Patient to f/u as outpatient with Dr. Marquez within 1-2 weeks of discharge -Tube will stay in for 4-6 weeks from insertion date -Will discuss management options fo gallbladder as outpatient -Furthe recommendations as [facility] <AdrianRuben N - Last Filed: 11/07/18 03:42> Objective - Vital Signs/Intake and Output Vital Signs (last 24 hours): Temp Pulse Resp BP Pulse Ox 98.8 F 81 18 124/79 98 11/07/18 00:40 11/07/18 00:40 11/07/18 00:40 11/07/18 00:40 11/07/18 00:40 Intake and Output: 11/06/18 11/07/18 18:59 06:59 Intake Total 1050 Output Total 650 Balance 400 - Medications Medications: Current Medications Acetaminophen (Tylenol 325mg Tab) 650 mg PO Q6H PRN PRN Reason: Pain, moderate (4-7) Acetaminophen (Tylenol 325mg Tab) 650 mg PO Q6H PRN PRN Reason: Fever >100.4 F Albuterol Sulfate (Albuterol 0.083% Inhal Mary (2.5 Mg/3 Ml) Ud) 2.5 mg IH RQ2 P RN PRN Reason: Shortness of Breath Last Admin: 11/04/18 05:54 Dose: 2.5 mg Dextrose (Dextrose 50% Inj) 0 ml IV STAT PRN; Protocol PRN Reason: Hypoglycemia Protocol Dextrose (Glutose 15) 0 gm PO ONCE PRN; Protocol PRN Reason: Hypoglycemia Protocol Gabapentin (Neurontin) 300 mg PO HS [facility] Last Admin: 11/06/18 22:02 Dose: 300 mg Glucagon (Glucagen Diagnostic Kit) 0 mg IM STAT PRN; Protocol PRN Reason: Hypoglycemia Protocol Guaifenesin/Dextromethorphan (Mucinex-Dm 600-30 Mg) 1 tab PO BID [facility] Last Admin: 11/06/18 16:40 Dose: 1 tab Heparin Sodium (Porcine) (Heparin) 5,000 units SC Q12 [facility]; Protocol Last Admin: 11/06/18 21:23 Dose: 5,000 units Meropenem 1 gm/ Sodium (Chloride) 100 mls @ 100 mls/hr IVPB Q12H [facility]; Protocol Last Admin: 11/06/18 16:38 Dose: 100 mls/hr Insulin Detemir (Levemir) 8 units SC HS [facility] Insulin Human Lispro (Humalog) 0 units SC Q6H [facility]; Protocol Last Admin: 11/06/18 23:01 Dose: Not Given Ondansetron HCl (Zofran Inj) 4 mg IVP Q6H PRN PRN Reason: Nausea/Vomiting Pantoprazole Sodium (Protonix Inj) 40 mg IVP DAILY [facility] Last Admin: 11/06/18 09:39 Dose: 40 mg Sennosides (Senokot Tab) 8.6 mg PO HS [facility] Last Admin: 11/06/18 22:02 Dose: 8.6 mg Tamsulosin HCl (Flomax) 0.4 mg PO DAILY [facility] Last Admin: 11/06/18 09:38 Dose: 0.4 mg - Labs Labs: 11/06/18 04:39 11/06/18 04:39 PT 28.2 Seconds (9.8-13.1) H 10/27/18 08:10 INR 2.5 10/27/18 08:10 APTT 30.8 Seconds (25.6-37.1) 10/27/18 08:10 Assessment and Plan - Assessment and Plan (Free Text) Plan: All medical record entries made by the resident were at my direction. I have reviewed the chart and agree that the record accurately reflects my personal performance of the history, physical exam, and medical decision making Patient appears comfortable. Abdomen protuberant and nontender
[2018-11-05] MEDS: guaiFENesin-DM 600-30 mg ER Tab PO SCH ×2 (08:45→16:13)
[2018-11-05 09:18] LABS: EOSINOPHIL 4 % (0-7); LYMPHOCYTE 8 % (20-50); MONOCYTE 4 % (0-10); NEUTROPHIL 84 % (42-75); PLATELET ESTIMATE NORMAL (NORMAL); TOTAL CELLS COUNTED 100
[2018-11-05 09:19] LABS: ANISOCYTOSIS SLIGHT; LARGE PLATELETS PRESENT; OVALOCYTES SLIGHT
--- NOTE | 2018-11-05 11:57 | CP.PCM.PN ---
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 had d/w ICU team and family Subjective: seen and examined denies n/v denies SOB or chest pain Physical Examination: General Appearance: Comfortable, in no acute respiratory distress, co-operative . Vitals reviewed and noted as below Head; Atraumatic, normocephalic ENT: no ulcers no thrush. Tongue is midline. Oropharynx: no rash or ulcers. EYES: Pupils are equal, round and reactive to light accommodation. Eye muscles and extraocular movement intact. Sclera is icteric. Neck; supple no lymphadenopathy, no thyromegaly or bruit Lungs: Normal respiratory rate/effort. Breath sounds bilateral improved Heart: Normal rate. s1s2 normal. No rub or gallop. Extremities: 1+ edema. No varicose veins Neurological: Patient is alert, awake and oriented to person, place and time. No focal deficit. Strength bilateral appropriate and equal Skin: Warm and dry. Normal turgor. No rash. Palpitation: Normal elasticity for age Abdomen: Abdomen is soft but distended. Bowel sounds +. Psych: normal insight and normal affect/mood MSK: no joint tenderness or swelling. Digits and nails normal, no deformity : kidney or bladder not palpable Labs/imaging reviewed. Past medical history, past surgical history, family history, social history, allergy reviewed and noted as below Family hx: no hx of CKD. Rest non-contributory Objective - Vital Signs/Intake and Output Vital Signs (last 24 hours): Temp Pulse Resp BP Pulse Ox 97.5 F L 85 17 107/74 99 11/05/18 08:00 11/05/18 08:00 11/05/18 08:00 11/05/18 11:53 11/05/18 08:00 Intake and Output: 11/05/18 11/05/18 06:59 18:59 Intake Total 200 Output Total 510 Balance -310 - Medications Medications: Current Medications Acetaminophen (Tylenol 325mg Tab) 650 mg PO Q6H PRN PRN Reason: Pain, moderate (4-7) Acetaminophen (Tylenol 325mg Tab) 650 mg PO Q6H PRN PRN Reason: Fever >100.4 F Albuterol Sulfate (Albuterol 0.083% Inhal Mary (2.5 Mg/3 Ml) Ud) 2.5 mg IH RQ2 PRN PRN Reason: Shortness of Breath Last Admin: 11/04/18 05:54 Dose: 2.5 mg Dextrose (Dextrose 50% Inj) 0 ml IV STAT PRN; Protocol PRN Reason: Hypoglycemia Protocol Dextrose (Glutose 15) 0 gm PO ONCE PRN; Protocol PRN Reason: Hypoglycemia Protocol Gabapentin (Neurontin) 300 mg PO HS [facility] Last Admin: 11/04/18 21:58 Dose: 300 mg Glucagon (Glucagen Diagnostic Kit) 0 mg IM STAT PRN; Protocol PRN Reason: Hypoglycemia Protocol Guaifenesin/Dextromethorphan (Mucinex-Dm 600-30 Mg) 1 tab PO BID [facility] Last Admin: 11/05/18 08:45 Dose: 1 tab Heparin Sodium (Porcine) (Heparin) 5,000 units SC Q12 [facility]; Protocol Last Admin: 11/05/18 08:44 Dose: 5,000 units Meropenem 1 gm/ Sodium (Chloride) 100 mls @ 100 mls/hr IVPB Q12H [facility]; Protocol Last Admin: 11/05/18 04:54 Dose: 100 mls/hr Insulin Detemir (Levemir) 6 units SC HS [facility] Insulin Human Lispro (Humalog) 0 units SC Q6H [facility]; Protocol Last Admin: 11/05/18 11:50 Dose: 6 unit Ondansetron HCl (Zofran Inj) 4 mg IVP Q6H PRN PRN Reason: Nausea/Vomiting Pantoprazole Sodium (Protonix Inj) 40 mg IVP DAILY [facility] Last Admin: 11/05/18 08:45 Dose: 40 mg Sennosides (Senokot Tab) 8.6 mg PO HS [facility] Last Admin: 11/04/18 21:57 Dose: 8.6 mg Tamsulosin HCl (Flomax) 0.4 mg PO DAILY [facility] Last Admin: 11/05/18 08:44 Dose: 0.4 mg - Labs Labs: 11/05/18 04:00 11/05/18 04:25 PT 28.2 Seconds (9.8-13.1) H 10/27/18 08:10 INR 2.5 10/27/18 08:10 APTT 30.8 Seconds (25.6-37.1) 10/27/18 08:10
--- NOTE | 2018-11-05 12:57 | CP.PCM.PN ---
Subjective - Date & Time of Evaluation Date of Evaluation: 11/05/18 Time of Evaluation: 09:00 - Subjective Subjective: improving Objective - Vital Signs/Intake and Output Vital Signs (last 24 hours): Temp Pulse Resp BP Pulse Ox 97.8 F 89 26 H 105/52 L 100 11/05/18 12:00 11/05/18 12:00 11/05/18 12:00 11/05/18 12:00 11/05/18 12:00 Intake and Output: 11/05/18 11/05/18 06:59 18:59 Intake Total 200 Output Total 510 Balance -310 - Medications Medications: Current Medications Acetaminophen (Tylenol 325mg Tab) 650 mg PO Q6H PRN PRN Reason: Pain, moderate (4-7) Acetaminophen (Tylenol 325mg Tab) 650 mg PO Q6H PRN PRN Reason: Fever >100.4 F Albuterol Sulfate (Albuterol 0.083% Inhal Mary (2.5 Mg/3 Ml) Ud) 2.5 mg IH RQ2 PRN PRN Reason: Shortness of Breath Last Admin: 11/04/18 05:54 Dose: 2.5 mg Dextrose (Dextrose 50% Inj) 0 ml IV STAT PRN; Protocol PRN Reason: Hypoglycemia Protocol Dextrose (Glutose 15) 0 gm PO ONCE PRN; Protocol PRN Reason: Hypoglycemia Protocol Gabapentin (Neurontin) 300 mg PO HS [facility] Last Admin: 11/04/18 21:58 Dose: 300 mg Glucagon (Glucagen Diagnostic Kit) 0 mg IM STAT PRN; Protocol PRN Reason: Hypoglycemia Protocol Guaifenesin/Dextromethorphan (Mucinex-Dm 600-30 Mg) 1 tab PO BID [facility] Last Admin: 11/05/18 08:45 Dose: 1 tab Heparin Sodium (Porcine) (Heparin) 5,000 units SC Q12 [facility]; Protocol Last Admin: 11/05/18 08:44 Dose: 5,000 units Meropenem 1 gm/ Sodium (Chloride) 100 mls @ 100 mls/hr IVPB Q12H [facility]; Protocol Last Admin: 11/05/18 04:54 Dose: 100 mls/hr Insulin Detemir (Levemir) 6 units SC HS [facility] Insulin Human Lispro (Humalog) 0 units SC Q6H [facility]; Protocol Last Admin: 11/05/18 11:50 Dose: 6 unit Ondansetron HCl (Zofran Inj) 4 mg IVP Q6H PRN PRN Reason: Nausea/Vomiting Pantoprazole Sodium (Protonix Inj) 40 mg IVP DAILY [facility] Last Admin: 11/05/18 08:45 Dose: 40 mg Sennosides (Senokot Tab) 8.6 mg PO HS [facility] Last Admin: 11/04/18 21:57 Dose: 8.6 mg Tamsulosin HCl (Flomax) 0.4 mg PO DAILY [facility] Last Admin: 11/05/18 08:44 Dose: 0.4 mg - Labs Labs: 11/05/18 04:00 11/05/18 04:25 PT 28.2 Seconds (9.8-13.1) H 10/27/18 08:10 INR 2.5 10/27/18 08:10 APTT 30.8 Seconds (25.6-37.1) 10/27/18 08:10 - Constitutional Appears: Well - Head Exam Head Exam: ATRAUMATIC, NORMAL INSPECTION, NORMOCEPHALIC - Eye Exam Eye Exam: EOMI, Normal appearance, PERRL Pupil Exam: NORMAL ACCOMODATION, PERRL - ENT Exam ENT Exam: Mucous Membranes Moist, Normal Exam - Neck Exam Neck Exam: Full ROM, Normal Inspection. absent: Lymphadenopathy - Respiratory Exam Respiratory Exam: Clear to Ausculation Bilateral, NORMAL BREATHING PATTERN - Cardiovascular Exam Cardiovascular Exam: REGULAR RHYTHM, +S1, +S2. absent: Murmur - GI/Abdominal Exam GI & Abdominal Exam: Soft, Normal Bowel Sounds. absent: Tenderness - Rectal Exam Rectal Exam: Deferred, NORMAL INSPECTION - Extremities Exam Extremities Exam: Full ROM, Normal Capillary Refill, Normal Inspection. absent: Joint Swelling, Pedal Edema - Back Exam Back Exam: NORMAL INSPECTION - Neurological Exam Neurological Exam: Alert, Awake, CN II-XII Intact, Normal Gait, Oriented x3 - Psychiatric Exam Psychiatric exam: Normal Affect, Normal Mood - Skin Skin Exam: Dry, Intact, Normal Color, Warm Assessment and Plan (1) SOO (acute kidney injury) Status: Acute (2) Cholecystitis Status: Acute (3) Severe sepsis Status: Acute (4) Uncontrolled diabetes mellitus Status: Acute - Assessment and Plan (Free Text) Assessment: improving s/p cholecystotomy
[2018-11-05] MEDS: Insulin Detemir 100 Units/ml Inj SC SCH (21:04)
[2018-11-06] MEDS: Insulin Lispro (humaLOG) 100 Units/ml Inj SC SCH ×7 (00:41→23:01)
[2018-11-06] MEDS: Meropenem 1 GM in Sodium Chloride 0.9% 100 ML IVPB SCH ×2 (04:38→16:38)
[2018-11-06 05:49] LABS: BLOOD UREA NITROGEN 26 mg/dl (9-20); CALCIUM 7.8 mg/dL (8.4-10.2); GFR NON-AFRICAN AMERICAN 53; HEMOGLOBIN 11.4 g/dL (12.0-18.0); MEAN CELL VOLUME 88.6 fl (80.0-94.0); MEAN CORPUSCULAR HEMOGLOBIN 29.9 pg (27.0-31.0); MEAN CORPUSCULAR HGB CONC 33.8 g/dL (33.0-37.0); RBC 3.82 Mil/uL (4.40-5.90); RED CELL DISTRIBUTION WIDTH 15.4 % (11.5-14.5); WHITE BLOOD COUNT 10.1 K/uL (4.8-10.8)
[2018-11-06] MEDS: guaiFENesin-DM 600-30 mg ER Tab PO SCH ×2 (09:39→16:40)
--- NOTE | 2018-11-06 10:34 | PN ---
DATE: 11/06/2018 SUBJECTIVE: The patient seen and examined. Interim events noted. Consults noted and appreciated. The patient remains in progressive care unit on telemetry monitoring, now out of intensive care unit. The patient is awake, responsive, feels okay. Denies any chest pain, shortness of breath, abdominal pain or diarrhea, able to tolerate food very well but feels not too hungry. PHYSICAL EXAMINATION: GENERAL: The patient is in no acute distress. VITAL SIGNS: Stable. Heart: S1, S2, normal and regular. LUNGS: Good bilateral air exchange. ABDOMEN: Gases distention but no sign of acute abdomen. No guarding, no rigidity. No rebound. Bowel sounds are present and normal. Cholecystostomy tube remains in good position with the bile drainage without any obvious complication. EXTREMITIES: No edema, no calf swelling, no tenderness, no acute ischemia. CENTRAL NERVOUS SYSTEM: Exam is essentially unchanged and there is no sign of any acute gross focal motor or sensory neurological deficit. DIAGNOSTIC DATA: Available diagnostic data reviewed. Telemetry monitoring does not show significant arrhythmias. Overall, the patient's general medical condition is slowly improving. Surgical followup, Nephrology followup and intervention noted and appreciated. Plan as ordered. Vicente Jacobo MD
[2018-11-06] MEDS: Insulin Detemir 100 Units/ml Inj SC SCH (22:01)
[2018-11-07] MEDS: Meropenem 1 GM in Sodium Chloride 0.9% 100 ML IVPB SCH ×2 (04:18→17:50)
[2018-11-07] MEDS: Insulin Lispro (humaLOG) 100 Units/ml Inj SC SCH ×4 (06:47→23:05)
[2018-11-07 07:03] LABS: HEMOGLOBIN 11.3 g/dL (12.0-18.0); MEAN CORPUSCULAR HEMOGLOBIN 29.9 pg (27.0-31.0); MEAN CORPUSCULAR HGB CONC 33.6 g/dL (33.0-37.0); RBC 3.77 Mil/uL (4.40-5.90); RED CELL DISTRIBUTION WIDTH 15.2 % (11.5-14.5); WHITE BLOOD COUNT 8.8 K/uL (4.8-10.8)
[2018-11-07 07:20] LABS: ALB/GLOB RATIO 0.9 (1.0-2.1); ALBUMIN 2.4 g/dL (3.5-5.0); ALT/SGPT 32 U/L (21-72); AST/SGOT 25 U/L (17-59); BLOOD UREA NITROGEN 21 mg/dl (9-20); CALCIUM 7.4 mg/dL (8.4-10.2); GFR NON-AFRICAN AMERICAN 58
[2018-11-07] MEDS: guaiFENesin-DM 600-30 mg ER Tab PO SCH ×2 (09:44→17:50)
--- NOTE | 2018-11-07 09:51 | PN ---
DATE: 11/07/2018 SUBJECTIVE: The patient was seen and examined. Interim events noted. Consults noted, appreciated. The patient remains in progressive care unit, on telemetry monitoring. Feels okay. Denies any chest pain, shortness of breath, abdominal pain, constipation. No diarrhea or vomiting. PHYSICAL EXAMINATION: GENERAL: The patient is in no acute distress. VITAL SIGNS: Stable. HEART: S1 and S2. Normal and regular. LUNGS: Good bilateral air exchange. ABDOMEN: Soft and nontender. Cholecystostomy tube is in good position and functioning. EXTREMITIES: No edema, no calf swelling, no tenderness, no acute ischemia. CENTRAL NERVOUS SYSTEM: Exam is essentially unchanged. DIAGNOSTIC DATA: Available diagnostic data reviewed. Telemetry monitoring does not show any significant arrhythmias. ASSESSMENT AND PLAN: Overall, the patient is clinically improving. Plan as ordered. Vicente Jacobo MD
--- NOTE | 2018-11-07 13:00 | CP.PCM.PN ---
Subjective - Date & Time of Evaluation Date of Evaluation: 11/07/18 Time of Evaluation: 09:00 - Subjective Subjective: afebrile in NAD OOB to chair denies fever Objective - Vital Signs/Intake and Output Vital Signs (last 24 hours): Temp Pulse Resp BP Pulse Ox 98.1 F 95 H 20 128/78 99 11/07/18 08:32 11/07/18 08:32 11/07/18 08:32 11/07/18 08:32 11/07/18 08:32 Intake and Output: 11/07/18 11/07/18 06:59 18:59 Intake Total 100 Output Total 575 Balance -475 - Medications Medications: Current Medications Acetaminophen (Tylenol 325mg Tab) 650 mg PO Q6H PRN PRN Reason: Pain, moderate (4-7) Acetaminophen (Tylenol 325mg Tab) 650 mg PO Q6H PRN PRN Reason: Fever >100.4 F Albuterol Sulfate (Albuterol 0.083% Inhal Mary (2.5 Mg/3 Ml) Ud) 2.5 mg IH RQ2 PRN PRN Reason: Shortness of Breath Last Admin: 11/04/18 05:54 Dose: 2.5 mg Dextrose (Dextrose 50% Inj) 0 ml IV STAT PRN; Protocol PRN Reason: Hypoglycemia Protocol Dextrose (Glutose 15) 0 gm PO ONCE PRN; Protocol PRN Reason: Hypoglycemia Protocol Gabapentin (Neurontin) 300 mg PO HS [facility] Last Admin: 11/06/18 22:02 Dose: 300 mg Glucagon (Glucagen Diagnostic Kit) 0 mg IM STAT PRN; Protocol PRN Reason: Hypoglycemia Protocol Guaifenesin/Dextromethorphan (Mucinex-Dm 600-30 Mg) 1 tab PO BID [facility] Last Admin: 11/07/18 09:44 Dose: 1 tab Heparin Sodium (Porcine) (Heparin) 5,000 units SC Q12 [facility]; Protocol Last Admin: 11/07/18 09:44 Dose: 5,000 units Meropenem 1 gm/ Sodium (Chloride) 100 mls @ 100 mls/hr IVPB Q12H [facility]; Protocol Last Admin: 11/07/18 04:18 Dose: 100 mls/hr Insulin Detemir (Levemir) 8 units SC HS [facility] Insulin Human Lispro (Humalog) 0 units SC Q6H [facility]; Protocol Last Admin: 11/07/18 12:14 Dose: 2 unit Ondansetron HCl (Zofran Inj) 4 mg IVP Q6H PRN PRN Reason: Nausea/Vomiting Pantoprazole Sodium (Protonix Inj) 40 mg IVP DAILY [facility] Last Admin: 11/07/18 09:43 Dose: 40 mg Sennosides (Senokot Tab) 8.6 mg PO HS [facility] Last Admin: 11/06/18 22:02 Dose: 8.6 mg Tamsulosin HCl (Flomax) 0.4 mg PO DAILY [facility] Last Admin: 11/07/18 09:44 Dose: 0.4 mg - Labs Labs: 11/07/18 05:35 11/07/18 05:35 PT 28.2 Seconds (9.8-13.1) H 10/27/18 08:10 INR 2.5 10/27/18 08:10 APTT 30.8 Seconds (25.6-37.1) 10/27/18 08:10 - Constitutional Appears: Non-toxic, Chronically Ill - Head Exam Head Exam: NORMOCEPHALIC - Eye Exam Eye Exam: absent: Scleral icterus Pupil Exam: NORMAL ACCOMODATION - ENT Exam ENT Exam: Mucous Membranes Dry - Neck Exam Neck Exam: absent: Lymphadenopathy - Respiratory Exam Respiratory Exam: Decreased Breath Sounds, Clear to Ausculation Bilateral - Cardiovascular Exam Cardiovascular Exam: REGULAR RHYTHM, +S1, +S2 - GI/Abdominal Exam GI & Abdominal Exam: Distended, Soft. absent: Tenderness - Rectal Exam Rectal Exam: Deferred - Exam Exam: NORMAL INSPECTION - Extremities Exam Extremities Exam: absent: Pedal Edema - Back Exam Back Exam: absent: CVA tenderness (L), CVA tenderness (R) Assessment and Plan (1) SOO (acute kidney injury) Status: Acute (2) Cholecystitis Status: Acute (3) Severe sepsis Status: Acute (4) Uncontrolled diabetes mellitus Status: Acute - Assessment and Plan (Free Text) Assessment: OK to d/c IV antibiotics follow up with GI/ surgery
[2018-11-07] MEDS: Insulin Detemir 100 Units/ml Inj SC SCH (21:39)
[2018-11-08] MEDS: Meropenem 1 GM in Sodium Chloride 0.9% 100 ML IVPB SCH ×2 (04:41→18:58)
[2018-11-08] MEDS: Insulin Lispro (humaLOG) 100 Units/ml Inj SC SCH ×3 (10:55→18:59)
[2018-11-08] MEDS: guaiFENesin-DM 600-30 mg ER Tab PO SCH ×2 (10:56→18:58)
--- NOTE | 2018-11-08 14:28 | PN ---
DATE: 11/08/2018 SUBJECTIVE: The patient seen and examined. Interim events noted. Consults noted and appreciated. The patient remains in progressive care unit with telemetry monitoring. The patient is awake, responsive, eating breakfast, and okay. Denies any chest pain or shortness of breath. No abdominal pain, vomiting, or diarrhea. The patient is tolerating food very well. No new complaint. PHYSICAL EXAMINATION: GENERAL: The patient is in no acute distress. VITAL SIGNS: Stable. Blood pressure is 99/60, but no orthostatic changes. HEART: S1 and S2, normal, regular. LUNGS: Good bilateral air exchange. ABDOMEN: Soft, nontender. EXTREMITIES: No edema, no calf swelling, no tenderness, no acute ischemia. CENTRAL NERVOUS SYSTEM: Essentially unchanged. DIAGNOSTIC DATA: Available diagnostic data reviewed. Telemetry monitoring does not show significant arrhythmia. Cholecystostomy tube is draining well without any complication. ASSESSMENT AND PLAN: Overall, the patient is slowly improving. Plan as ordered. Vicente Jacobo MD
[2018-11-08] MEDS: Insulin Detemir 100 Units/ml Inj SC SCH (21:40)
[2018-11-09] MEDS: Insulin Lispro (humaLOG) 100 Units/ml Inj SC SCH ×3 (00:57→12:42)
[2018-11-09] MEDS: Meropenem 1 GM in Sodium Chloride 0.9% 100 ML IVPB SCH (05:07)
[2018-11-09 05:49] LABS: MEAN CELL VOLUME 89.1 fl (80.0-94.0); MEAN CORPUSCULAR HEMOGLOBIN 30.1 pg (27.0-31.0); MEAN CORPUSCULAR HGB CONC 33.7 g/dL (33.0-37.0); RBC 3.66 Mil/uL (4.40-5.90); RED CELL DISTRIBUTION WIDTH 14.8 % (11.5-14.5); WHITE BLOOD COUNT 8.5 K/uL (4.8-10.8)
[2018-11-09 06:07] LABS: BLOOD UREA NITROGEN 18 mg/dl (9-20); GFR NON-AFRICAN AMERICAN 58
[2018-11-09 06:08] LABS: ALB/GLOB RATIO 0.9 (1.0-2.1); ALBUMIN 2.7 g/dL (3.5-5.0); ALT/SGPT 30 U/L (21-72); AST/SGOT 27 U/L (17-59)
[2018-11-09 07:49] VITALS: RESP 18
[2018-11-09] MEDS: guaiFENesin-DM 600-30 mg ER Tab PO SCH (09:16)
--- NOTE | 2018-11-09 09:35 | CP.PCM.PN ---
Subjective - Date & Time of Evaluation Date of Evaluation: 11/09/18 Time of Evaluation: 09:34 - Subjective Subjective: no overnight events Objective - Vital Signs/Intake and Output Vital Signs (last 24 hours): Temp Pulse Resp BP Pulse Ox 98.6 F 79 18 105/67 97 11/09/18 07:48 11/09/18 07:48 11/09/18 07:48 11/09/18 07:48 11/09/18 07:48 Intake and Output: 11/09/18 11/09/18 06:59 18:59 Intake Total 950 Output Total 1400 Balance -450 - Medications Medications: Current Medications Acetaminophen (Tylenol 325mg Tab) 650 mg PO Q6H PRN PRN Reason: Pain, moderate (4-7) Acetaminophen (Tylenol 325mg Tab) 650 mg PO Q6H PRN PRN Reason: Fever >100.4 F Albuterol Sulfate (Albuterol 0.083% Inhal Mary (2.5 Mg/3 Ml) Ud) 2.5 mg IH RQ2 PRN PRN Reason: Shortness of Breath Last Admin: 11/04/18 05:54 Dose: 2.5 mg Dextrose (Dextrose 50% Inj) 0 ml IV STAT PRN; Protocol PRN Reason: Hypoglycemia Protocol Dextrose (Glutose 15) 0 gm PO ONCE PRN; Protocol PRN Reason: Hypoglycemia Protocol Gabapentin (Neurontin) 300 mg PO HS [facility] Last Admin: 11/08/18 21:32 Dose: 300 mg Glucagon (Glucagen Diagnostic Kit) 0 mg IM STAT PRN; Protocol PRN Reason: Hypoglycemia Protocol Guaifenesin/Dextromethorphan (Mucinex-Dm 600-30 Mg) 1 tab PO BID [facility] Last Admin: 11/09/18 09:16 Dose: 1 tab Heparin Sodium (Porcine) (Heparin) 5,000 units SC Q12 [facility]; Protocol Last Admin: 11/09/18 09:17 Dose: 5,000 units Insulin Detemir (Levemir) 8 units SC HS [facility] Last Admin: 11/08/18 21:40 Dose: 8 units Insulin Human Lispro (Humalog) 0 units SC Q6H [facility]; Protocol Last Admin: 11/09/18 06:20 Dose: 2 unit Ondansetron HCl (Zofran Inj) 4 mg IVP Q6H PRN PRN Reason: Nausea/Vomiting Pantoprazole Sodium (Protonix Inj) 40 mg IVP DAILY [facility] Last Admin: 11/09/18 09:17 Dose: 40 mg Sennosides (Senokot Tab) 8.6 mg PO HS [facility] Last Admin: 11/08/18 21:32 Dose: 8.6 mg Tamsulosin HCl (Flomax) 0.4 mg PO DAILY [facility] Last Admin: 11/09/18 09:16 Dose: 0.4 mg - Labs Labs: 11/09/18 05:30 11/09/18 05:30 PT 28.2 Seconds (9.8-13.1) H 10/27/18 08:10 INR 2.5 10/27/18 08:10 APTT 30.8 Seconds (25.6-37.1) 10/27/18 08:10 - Neck Exam Neck Exam: Normal Inspection - Respiratory Exam Respiratory Exam: Clear to Ausculation Bilateral, NORMAL BREATHING PATTERN - Cardiovascular Exam Cardiovascular Exam: REGULAR RHYTHM - GI/Abdominal Exam GI & Abdominal Exam: Soft, Normal Bowel Sounds Assessment and Plan - Assessment and Plan (Free Text) Assessment: 83 yo male with cholecystitis dc planning elective cholecystectomy once able
--- NOTE | 2018-11-09 10:33 | CP.PCM.PN ---
Subjective - Date & Time of Evaluation Date of Evaluation: 11/09/18 Time of Evaluation: 10:00 - Subjective Subjective: doing well'remains afebrile in NAD Objective - Vital Signs/Intake and Output Vital Signs (last 24 hours): Temp Pulse Resp BP Pulse Ox 98.6 F 79 18 105/67 97 11/09/18 07:48 11/09/18 07:48 11/09/18 07:48 11/09/18 07:48 11/09/18 07:48 Intake and Output: 11/09/18 11/09/18 06:59 18:59 Intake Total 950 Output Total 1400 Balance -450 - Medications Medications: Current Medications Acetaminophen (Tylenol 325mg Tab) 650 mg PO Q6H PRN PRN Reason: Pain, moderate (4-7) Acetaminophen (Tylenol 325mg Tab) 650 mg PO Q6H PRN PRN Reason: Fever >100.4 F Albuterol Sulfate (Albuterol 0.083% Inhal Mary (2.5 Mg/3 Ml) Ud) 2.5 mg IH RQ2 PRN PRN Reason: Shortness of Breath Last Admin: 11/04/18 05:54 Dose: 2.5 mg Dextrose (Dextrose 50% Inj) 0 ml IV STAT PRN; Protocol PRN Reason: Hypoglycemia Protocol Dextrose (Glutose 15) 0 gm PO ONCE PRN; Protocol PRN Reason: Hypoglycemia Protocol Gabapentin (Neurontin) 300 mg PO HS [facility] Last Admin: 11/08/18 21:32 Dose: 300 mg Glucagon (Glucagen Diagnostic Kit) 0 mg IM STAT PRN; Protocol PRN Reason: Hypoglycemia Protocol Guaifenesin/Dextromethorphan (Mucinex-Dm 600-30 Mg) 1 tab PO BID [facility] Last Admin: 11/09/18 09:16 Dose: 1 tab Heparin Sodium (Porcine) (Heparin) 5,000 units SC Q12 [facility]; Protocol Last Admin: 11/09/18 09:17 Dose: 5,000 units Insulin Detemir (Levemir) 8 units SC HS [facility] Last Admin: 11/08/18 21:40 Dose: 8 units Insulin Human Lispro (Humalog) 0 units SC Q6H [facility]; Protocol Last Admin: 11/09/18 06:20 Dose: 2 unit Ondansetron HCl (Zofran Inj) 4 mg IVP Q6H PRN PRN Reason: Nausea/Vomiting Pantoprazole Sodium (Protonix Inj) 40 mg IVP DAILY [facility] Last Admin: 11/09/18 09:17 Dose: 40 mg Sennosides (Senokot Tab) 8.6 mg PO HS [facility] Last Admin: 11/08/18 21:32 Dose: 8.6 mg Tamsulosin HCl (Flomax) 0.4 mg PO DAILY [facility] Last Admin: 11/09/18 09:16 Dose: 0.4 mg - Labs Labs: 11/09/18 05:30 11/09/18 05:30 PT 28.2 Seconds (9.8-13.1) H 10/27/18 08:10 INR 2.5 10/27/18 08:10 APTT 30.8 Seconds (25.6-37.1) 10/27/18 08:10 - Constitutional Appears: Well - Head Exam Head Exam: ATRAUMATIC, NORMAL INSPECTION, NORMOCEPHALIC - Eye Exam Eye Exam: EOMI, Normal appearance, PERRL Pupil Exam: NORMAL ACCOMODATION, PERRL - ENT Exam ENT Exam: Mucous Membranes Moist, Normal Exam - Neck Exam Neck Exam: Full ROM, Normal Inspection. absent: Lymphadenopathy - Respiratory Exam Respiratory Exam: Clear to Ausculation Bilateral, NORMAL BREATHING PATTERN - Cardiovascular Exam Cardiovascular Exam: REGULAR RHYTHM, +S1, +S2. absent: Murmur - GI/Abdominal Exam GI & Abdominal Exam: Soft, Normal Bowel Sounds. absent: Tenderness Additional comments: tube in place RUQ - Rectal Exam Rectal Exam: Deferred - Exam Exam: NORMAL INSPECTION - Extremities Exam Extremities Exam: Full ROM, Normal Capillary Refill, Normal Inspection. absent: Joint Swelling, Pedal Edema - Back Exam Back Exam: NORMAL INSPECTION - Neurological Exam Neurological Exam: Alert, Awake, CN II-XII Intact, Normal Gait, Oriented x3 - Psychiatric Exam Psychiatric exam: Normal Affect, Normal Mood - Skin Skin Exam: Dry, Intact, Normal Color, Warm Assessment and Plan (1) SOO (acute kidney injury) Status: Acute (2) Cholecystitis Status: Acute (3) Severe sepsis Status: Acute (4) Uncontrolled diabetes mellitus Status: Acute - Assessment and Plan (Free Text) Assessment: OK to d/c iv antibiotics 'folllow uop with GI and surgery
--- NOTE | 2018-11-09 14:33 | PQF ---
PROVIDER RESPONSE TEXT: Septicemia due to E coli, secondary to Cholangitis REVIEWER QUERY TEXT: Cause and Effect Relationship Please clarify in documentation the relationship, if any, between SEPTICEMIA and BLOOD CS growing E Coli. Such as: -- E. Coli Septicemia: Conditions are due to or associated -- Unrelated to each other -- Other, please specify The patient's Clinical Indicators include: Admitted for Right sided abdominal pain, with nausea, vomiting and fever. Dx: Sepsis due to cholecystitis. PN: Gram negative septicemia Rx: IVAB, cholecystostomy tube Query created by: Christine Benson on 10/29/2018 10:41 AM Electronically signed by: Randy Hughes 11/09/2018 2:30 PM
[2018-11-09 15:46] VITALS: BP 90/57; PULSE 74; TEMP 98.1; O2SAT 99
== END 2018-11-09 16:50 | disposition home or self-care (01) | DRG 871 ==
LOC: H.ER 09:48 → H.ERHOLD 12:44 → H.ICU/CCU 16:27 → H.TEL 11-05 23:46
PROVIDERS: ADMIT Internal Medicine; ATTEND Internal Medicine
PROC: 06HN33Z Insertion of Infusion Device into Left Femoral Vein, Percutaneous Approach (ICD-10-PCS; 2018-10-26)
PROC: 0F9430Z Drainage of Gallbladder with Drainage Device, Percutaneous Approach (ICD-10-PCS; principal; 2018-10-27 10:00)
DX: A41.51 Sepsis due to Escherichia coli [E. coli] (principal); N17.0 Acute kidney failure with tubular necrosis; R65.21 Severe sepsis with septic shock; K83.1 Obstruction of bile duct; K81.0 Acute cholecystitis; D68.9 Coagulation defect, unspecified; K83.09 Other cholangitis; E87.2 Acidosis; E11.65 Type 2 diabetes mellitus with hyperglycemia; D69.6 Thrombocytopenia, unspecified; I12.9 Hypertensive chronic kidney disease with stage 1 through stage 4 chronic kidney disease, or unspecified chronic kidney disease; N18.3 Chronic kidney disease, stage 3 (moderate); E11.22 Type 2 diabetes mellitus with diabetic chronic kidney disease; E87.6 Hypokalemia; E86.0 Dehydration; N40.0 Benign prostatic hyperplasia without lower urinary tract symptoms; Z79.82 Long term (current) use of aspirin; E78.5 Hyperlipidemia, unspecified; I25.10 Atherosclerotic heart disease of native coronary artery without angina pectoris; Z95.1 Presence of aortocoronary bypass graft